=== PATIENT | male | born 1960 | race African-American/Black ===

== ENCOUNTER 2017-07-27 16:36 | Inpatient (IN) | payer MEDICARE, MEDICAID ==
[~2017-07-27] VITALS: Ht 172.7 cm; Wt 110.2 kg
[~2017-07-27 16:36] MED LIST: EFAV600T PO; EMTR1TAB6 PO; HYDR-548 PO; LANS15CA5 PO; RISP0.5T2 PO; TRAZ-144 PO; ZOLP10TA2 PO; [UNRECOGNIZED DRUG - OTHER] PO
--- NOTE | 2017-07-27 16:45 | NUR ---
PT TO ED FOR PSYCHE EVALUATION- "IM SUICIDAL, DEPRESSED, I WILL TAKE PILLS", NAD NOTED, VSS, RESP EVEN AND UNLABORED. WAITING FOR MD YUSUF.
[2017-07-27 17:14] LABS: BASOPHILS # (AUTO) 0.1 /CMM (0.0-0.2); BASOPHILS % (AUTO) 0.9 % (0.0-2.0); EOSINOPHILS # (AUTO) 0.1 /CMM (0.0-0.7); EOSINOPHILS % (AUTO) 1.7 % (0.0-6.0); HEMATOCRIT 48 % (39-51); HEMOGLOBIN 15.9 g/dL (13.5-17.5); LYMPHOCYTES % (AUTO) 23.4 % (20.0-44.0); MEAN CORPUSCULAR HEMOGLOBIN 30 PG (26.0-33.0); MEAN CORPUSCULAR HGB CONC 33 g/dl (31.0-36.0); MEAN CORPUSCULAR VOLUME 92 fL (80-96); MONOCYTES # (AUTO) 0.5 /CMM (0.1-1.30); MONOCYTES % (AUTO) 5.8 % (2.0-12.0); NEUTROPHILS # (AUTO) 5.8 /CMM (1.8-8.9); NEUTROPHILS % (AUTO) 68.2 % (43.0-81.0); PLATELET COUNT (AUTO) 291 /CMM (150-450); RDW COEFFICIENT OF VARIATION 12.9 (11.5-15.0); RED BLOOD CELL COUNT(AUTO) 5.24 MIL/uL (4.5-6.0); WHITE BLOOD COUNT (AUTO) 8.6 K/uL (4.3-11.0)
[2017-07-27 17:31] LABS: ALANINE AMINOTRANSFERASE 24 U/L (12-78); ALBUMIN 4.7 g/dL (3.4-5.0); ALKALINE PHOSPHATASE 141 U/L (46-116); ASPARTATE AMINOTRANSFERASE 8 U/L (15-37); BILIRUBIN,DIRECT 0.1 mg/dL (0.0-0.2); BILIRUBIN,TOTAL 0.3 mg/dL (0.2-1.0); CALCIUM, SERUM 9.4 mg/dL (8.5-10.1); CARBON DIOXIDE 26 mmol/L (21-32); CHLORIDE 107 mmol/L (98-107); CREATININE 1.2 mg/dL (0.6-1.3); GLUCOSE 142 mg/dL (74-106); POTASSIUM 4.1 mmol/L (3.5-5.1); SODIUM SERUM 143 mmol/L (136-145); TOTAL PROTEIN, SERUM 8.4 g/dL (6.4-8.2); UREA NITROGEN, BLOOD 14 mg/dL (7-18)
[2017-07-27 17:32] LABS: ACETAMINOPHEN < 2 ug/ml (10-30); ALCOHOL, BLOOD < 3 mg/dL (0-0); SALICYLATE < 2.8 mg/dL (2.8-20.0)
--- NOTE | 2017-07-27 18:03 | NUR ---
URINE SENT TO LAB
[2017-07-27 18:12] LABS: APPEARANCE,URINE Clear (CLEAR); BILIRUBIN,URINE Negative (NEGATIVE); BLOOD, URINE Negative Ery/uL (NEGATIVE); COLOR,URINE Yellow (YELLOW); KETONES,URINE Trace (NEGATIVE); LEUKOCYTE ESTERASE ,URINE Negative (NEGATIVE); NITRITE, URINE Negative (NEGATIVE); PROTEIN,URINE Negative (NEGATIVE); UGLUCOSE Negative (NEGATIVE); UROBILINOGEN,URINE 0.2 EU/dL (0.2)
[2017-07-27 19:02] LABS: BACTERIA,URINE Rare /HPF (None Seen); RBC,URINE NONE SEEN /HPF (0-2); SQUAMOUS EPITHELIAL CELL,UR Rare /HPF (None Seen); WBC,URINE 0-2 /HPF (0-3)
--- NOTE | 2017-07-27 19:50 | NUR ---
CALLED [facility] FOR PSYCH EVAL, ETA 1 HOUR
--- NOTE | 2017-07-27 20:54 | NUR ---
GPS 216-A
--- NOTE | 2017-07-27 21:09 | NUR ---
JEFFY ELIZONDO TOOK REPORT
[2017-07-27] MEDS ORDERED: TEMAZEPAM 7.5 MG CAPSULE PO PRN (22:00)
[2017-07-27] MEDS ORDERED: LORAZEPAM 0.5 MG TABLET PO PRN (22:00)
[2017-07-27] MEDS ORDERED: MAGNESIUM HYDROXIDE 30 ML UDC PO PRN (22:00)
[2017-07-27] MEDS ORDERED: MAG HYDROX/AL HYDROX/SIMETH 30 ML UDC PO PRN (22:00)
[2017-07-27] MEDS ORDERED: ENOXAPARIN SODIUM 40 MG/0.4 ML DISP.SYRIN SQ SCH (22:30)
[2017-07-27] MEDS ORDERED: ZOLPIDEM TARTRATE 10 MG TABLET PO PRN (22:30)
[2017-07-27 22:37] VITALS: BP 109/66
[2017-07-27] MEDS ORDERED: ENOXAPARIN SODIUM 40 MG/0.4 ML DISP.SYRIN SQ ONE (22:39)
[2017-07-27] MEDS ORDERED: TEMAZEPAM 7.5 MG CAPSULE ONE (22:41)
--- NOTE | 2017-07-27 23:03 | NUR ---
GPS/RN NOTE: C/O INSOMNIA, TEMAZEPAM 7.5 MG CAP PO GIVEN.
[2017-07-28 06:53] LABS: CREATININE 1.1 mg/dL (0.6-1.3)
[2017-07-28 08:00] VITALS: BP 105/60
[2017-07-28] MEDS: PANTOPRAZOLE 40 MG TABLET.DR PO SCH (08:51)
[2017-07-28] MEDS: EFAVIRENZ 600 MG TABLET PO SCH (08:51)
[2017-07-28] MEDS: EMTRICITABINE/TENOFOVIR 1 TAB PO SCH (08:51)
--- NOTE | 2017-07-28 14:47 | NUR ---
Initial discharge plan: Patient resides with roommates at a sober living facility ([address] [place] [id number], telephone number unknown). He would like to go back to the sober living house. Per patient, he does not have a phone number or contact that SW can speak to. SW will follow up regarding the most appropriate discharge plan. SW to help form a safe and proper discharge.
[2017-07-28 16:00] VITALS: BP 123/80
[2017-07-28 20:08] VITALS: BP 142/92
[2017-07-28] MEDS: ACETAMINOPHEN 325 MG TABLET PO PRN ×2 (20:26→21:21)
[2017-07-28] MEDS: QUETIAPINE FUMARATE 100 MG TABLET PO SCH (21:21)
[2017-07-28] MEDS: MIRTAZAPINE 15 MG TABLET PO SCH (21:21)
[2017-07-28] MEDS ORDERED: TRAZODONE 50 MG TABLET PO SCH (22:00)
[2017-07-29 08:26] VITALS: BP 136/75
[2017-07-29] MEDS: FLUOXETINE HCL 20 MG CAPSULE PO SCH (09:26)
[2017-07-29] MEDS: PANTOPRAZOLE 40 MG TABLET.DR PO SCH (09:26)
[2017-07-29] MEDS: EMTRICITABINE/TENOFOVIR 1 TAB PO SCH (09:27)
[2017-07-29] MEDS: EFAVIRENZ 600 MG TABLET PO SCH (09:27)
[2017-07-29 17:11] VITALS: BP 110/77
[2017-07-29 20:00] VITALS: BP 124/81
[2017-07-29] MEDS: QUETIAPINE FUMARATE 100 MG TABLET PO SCH (21:29)
[2017-07-29] MEDS: MIRTAZAPINE 15 MG TABLET PO SCH (21:30)
[2017-07-30 08:00] VITALS: BP 109/83
[2017-07-30] MEDS: EMTRICITABINE/TENOFOVIR 1 TAB PO SCH (08:56)
[2017-07-30] MEDS: FLUOXETINE HCL 20 MG CAPSULE PO SCH (08:57)
[2017-07-30] MEDS: EFAVIRENZ 600 MG TABLET PO SCH (08:57)
[2017-07-30] MEDS: PANTOPRAZOLE 40 MG TABLET.DR PO SCH (08:57)
--- NOTE | 2017-07-30 15:44 | NUR ---
skidway worker spoke to patient regarding discharge plan. Patient stated that he wants to return to the sober living facility ([address] [place] [address], telephone number unknown) Patient only has the address and is unable to provide a contact number. skidway worker will follow-up.
[2017-07-30 16:00] VITALS: BP 115/68
[2017-07-30 20:00] VITALS: BP 117/73
[2017-07-30] MEDS: MIRTAZAPINE 15 MG TABLET PO SCH (21:42)
[2017-07-30] MEDS: QUETIAPINE FUMARATE 100 MG TABLET PO SCH (21:42)
[2017-07-31 08:00] VITALS: BP 119/71
[2017-07-31] MEDS: PANTOPRAZOLE 40 MG TABLET.DR PO SCH (08:04)
[2017-07-31] MEDS: EMTRICITABINE/TENOFOVIR 1 TAB PO SCH (09:04)
[2017-07-31] MEDS: FLUOXETINE HCL 20 MG CAPSULE PO SCH (09:04)
[2017-07-31] MEDS: EFAVIRENZ 600 MG TABLET PO SCH (09:04)
[2017-07-31 16:00] VITALS: BP 109/81
[2017-07-31 20:00] VITALS: BP 115/80
[2017-07-31] MEDS: MIRTAZAPINE 15 MG TABLET PO SCH (21:32)
[2017-07-31] MEDS: QUETIAPINE FUMARATE 100 MG TABLET PO SCH (21:32)
--- NOTE | 2017-08-01 00:53 | NUR ---
Pt has been with depressed mood but compliant & pleasant on approach.
[2017-08-01] MEDS: PANTOPRAZOLE 40 MG TABLET.DR PO SCH (07:58)
[2017-08-01] MEDS: FLUOXETINE HCL 20 MG CAPSULE PO SCH (07:58)
[2017-08-01 07:59] VITALS: BP 108/74
[2017-08-01] MEDS: EFAVIRENZ 600 MG TABLET PO SCH (08:32)
[2017-08-01] MEDS: EMTRICITABINE/TENOFOVIR 1 TAB PO SCH (08:32)
--- NOTE | 2017-08-01 13:46 | NUR ---
LRR-UE-[id number]: NOTIFIED DR. REGALADO ABOUT DIETARY RECOMMENDATIONS FOR FOLIC ACID, THIAMINE, MULTIVITAMINS DUE TO ALCOHOL ABUSE. DR. REGALADO DIDN'T ORDER NEW MEDICATIONS AT THIS TIME.
[2017-08-01 16:00] VITALS: BP 126/82
[2017-08-01 20:13] VITALS: BP 124/86
[2017-08-01] MEDS: MIRTAZAPINE 15 MG TABLET PO SCH (21:07)
[2017-08-01] MEDS: QUETIAPINE FUMARATE 100 MG TABLET PO SCH (21:08)
[2017-08-01] MEDS: ATORVASTATIN 10 MG TABLET PO SCH (21:08)
[2017-08-02 08:17] VITALS: BP 119/73
[2017-08-02] MEDS: FLUOXETINE HCL 20 MG CAPSULE PO SCH (09:28)
[2017-08-02] MEDS: PANTOPRAZOLE 40 MG TABLET.DR PO SCH (09:28)
[2017-08-02] MEDS: EFAVIRENZ 600 MG TABLET PO SCH (09:29)
[2017-08-02] MEDS: EMTRICITABINE/TENOFOVIR 1 TAB PO SCH (09:29)
[2017-08-02 16:05] VITALS: BP 140/88
[2017-08-02 20:00] VITALS: BP 135/71
[2017-08-02] MEDS: ATORVASTATIN 10 MG TABLET PO SCH (21:42)
[2017-08-02] MEDS: QUETIAPINE FUMARATE 100 MG TABLET PO SCH (21:43)
[2017-08-02] MEDS: MIRTAZAPINE 15 MG TABLET PO SCH (21:43)
[2017-08-03 08:00] VITALS: BP 150/77
[2017-08-03] MEDS: PANTOPRAZOLE 40 MG TABLET.DR PO SCH (09:04)
[2017-08-03] MEDS: FLUOXETINE HCL 20 MG CAPSULE PO SCH (09:04)
[2017-08-03] MEDS: EFAVIRENZ 600 MG TABLET PO SCH (09:05)
[2017-08-03] MEDS: EMTRICITABINE/TENOFOVIR 1 TAB PO SCH (09:05)
[2017-08-03 15:43] VITALS: BP 141/70
[2017-08-03 19:59] VITALS: BP 108/72
[2017-08-03] MEDS: MIRTAZAPINE 15 MG TABLET PO SCH (21:34)
[2017-08-03] MEDS: ATORVASTATIN 10 MG TABLET PO SCH (21:34)
[2017-08-03] MEDS: QUETIAPINE FUMARATE 100 MG TABLET PO SCH (21:35)
[2017-08-04 08:38] VITALS: BP 107/73
[2017-08-04] MEDS: FLUOXETINE HCL 20 MG CAPSULE PO SCH (09:16)
[2017-08-04] MEDS: PANTOPRAZOLE 40 MG TABLET.DR PO SCH (09:16)
[2017-08-04] MEDS: EMTRICITABINE/TENOFOVIR 1 TAB PO SCH (09:16)
[2017-08-04] MEDS: EFAVIRENZ 600 MG TABLET PO SCH (09:17)
[2017-08-04 16:08] VITALS: BP 120/78
--- NOTE | 2017-08-04 19:30 | NUR ---
GPS RN NOTE, RECEIVED PATIENT AWAKE AND IN BED, PATIENT HAS A COMPLAINT OF CHRONIC LOWER BACK PAIN AT 4 OU10 ON THE PAIN. PATIENT IS TAKING ORAL PAIN MEDICATION FOR THIS PAIN. PATIENT IS DISPLAYING NO S/S OF APPARENT DISTRESS AT THIS TIME. PATIENT BREATHING IS UNLABORED WITH EQUAL RISE AND FALL OF THE CHEST. PATIENT IS ALERT AND ORIENTED X 3 ON ROOM AIR WITH A SPO2 OF 97%. PATIENT IS ANXIOUS AT TIMES , COMPLIANT WITH MEDICATION, COOPERATIVE, PLEASANT, AND NEEDS REORIENTATION. PATIENT DENIES SUICIDE IDEATIONS AND HOMICIDAL IDEATIONS AT THIS TIME. PATIENT EDUCATED ON THE USE OF THE CALL RAMAN. PATIENT BED SIDE RAILS UP X2 FOR SAFETY, BED IS LOCKED AND LOW, AND I WILL CONTINUE TO MONITOR AND MAINTAIN SAFETY Q15MIN WITH THE HELP OF STAFF.
[2017-08-04] MEDS: NAPROXEN 500 MG TABLET PO SCH (19:33)
--- NOTE | 2017-08-04 19:33 | NUR ---
GPS RN NOTE, PATIENT HAS A COMPLAINT OF CHRONIC LOWER BACK PAIN AT 5 OUT 10 ON THE PAIN SCALE AND IS REQUESTING NAPROXEN. [facility] AND INFORMED DR KAVITA EISENBERG OF MY FINDINGS. DR WALLS ORDERED TO GIVE NAPROXEN 500MG PO BID AND TO GIVE ONE TAB OF NAPROXEN ONCE NOW. ALL ORDERS NOTED AND CARRIED OUT. PATIENT VITAL SIGNS ARE STABLE. GAVE NAPROXEN 500MG ONE TAB PO ONCE. WILL REASSESS PAIN AND I WILL CONTINUE TO MONITOR THIS PATIENT.
[2017-08-04 19:37] VITALS: BP 139/79
[2017-08-04] MEDS: ATORVASTATIN 10 MG TABLET PO SCH (21:20)
[2017-08-04] MEDS: QUETIAPINE FUMARATE 100 MG TABLET PO SCH (21:21)
[2017-08-04] MEDS: MIRTAZAPINE 15 MG TABLET PO SCH (21:21)
[2017-08-05 08:00] VITALS: BP 110/77
[2017-08-05] MEDS: EMTRICITABINE/TENOFOVIR 1 TAB PO SCH (08:19)
[2017-08-05] MEDS: EFAVIRENZ 600 MG TABLET PO SCH (08:19)
[2017-08-05] MEDS: NAPROXEN 500 MG TABLET PO SCH ×2 (08:19→16:30)
[2017-08-05] MEDS: FLUOXETINE HCL 20 MG CAPSULE PO SCH (08:19)
[2017-08-05] MEDS: PANTOPRAZOLE 40 MG TABLET.DR PO SCH (08:19)
[2017-08-05 16:00] VITALS: BP 111/76
[2017-08-05 20:00] VITALS: BP 113/84
[2017-08-05] MEDS: MIRTAZAPINE 15 MG TABLET PO SCH (21:42)
[2017-08-05] MEDS: ATORVASTATIN 10 MG TABLET PO SCH (21:42)
[2017-08-05] MEDS ORDERED: QUETIAPINE FUMARATE 100 MG TABLET ONE (22:13)
[2017-08-05] MEDS: QUETIAPINE FUMARATE 100 MG TABLET PO SCH (22:24)
--- NOTE | 2017-08-06 07:17 | NUR ---
RN NOTE PT IS IN BED, SLEEPING COMFORTABLY. PT ON RA, RESPIRATIONS ARE EVEN AND UNLABORED. SAFETY MEASURES ARE IN PLACE. WILL CONTINUE TO MONITOR.
[2017-08-06 08:00] VITALS: BP 117/77
[2017-08-06] MEDS: FLUOXETINE HCL 20 MG CAPSULE PO SCH (09:17)
[2017-08-06] MEDS: EMTRICITABINE/TENOFOVIR 1 TAB PO SCH (09:17)
[2017-08-06] MEDS: EFAVIRENZ 600 MG TABLET PO SCH (09:17)
[2017-08-06] MEDS: NAPROXEN 500 MG TABLET PO SCH (09:17)
[2017-08-06] MEDS: PANTOPRAZOLE 40 MG TABLET.DR PO SCH (09:17)
--- NOTE | 2017-08-06 09:54 | NUR ---
DR. LEMUS GAVE AN ORDER TO D/C HOLD AND D/C TO SOBER LIVING FACILITY. PT. WITHOUT DISTRESS, DENIES SUICIDAL AND HOMICIDAL AND TO FOLLOW UP WITH PSYCH AND MEDICAL DOCTORS.
--- NOTE | 2017-08-06 11:33 | NUR ---
Discharge Note: Patient will be discharged to Sober Living Facility [address] [address]. Via taxi. Patient does not have any contacts to be notified. Patient is agreeable with the discharge plan. Patient's mood and affect are appropriate. Patient denies suicidal and homicidal ideations. Per Patient, he has a follow-up appointment with his psychiatrist Dr. King ([phone]) on 08/16/17 at 2:00PM in which he will discuss his substance abuse. Facilitated info to IDT team who are in agreement with discharge arrangement. The multidisciplinary exitcare form was done, printed, signed, and given to the patient. Addendum: 08/06/17 at 1309 by CHANDANA SILVER Patient stated that he wanted to go to the [facility] in [place] before going to the sober living [facility] and stated that he had to "run some errands". Patient did not want a taxi voucher and kept insisting that he wanted to go to the [facility]. floor worker provided him with homeless resources such as shelters and food riddle. Patient's mood and affect were appropriate upon discharge.
--- NOTE | 2017-08-06 12:42 | NUR ---
DR. REGALADO MADE AWARE BY THE PRIMARY NURSE FOR THE DISCHARGE AND SAID OK FOR DISCHARGE. PER PT. HE DOESN'T NEED A MEDICAL PRESCRIPTIONS, HE STILL HAVE MEDS AT HOME. DR. REGALADO SAID TO CONTINUE SAME MEDS.
--- NOTE | 2017-08-06 12:53 | NUR ---
RN NOTES PT WAS DISCHARGED TO A SOBER LIVING FACILITY IN STABLE CONDITION. DISCHARGE PAPERS WERE SIGNED AND BELONGINGS WERE RETURNED TO THE PATIENT. THE PT WAS GIVEN A TAXI VOUCHER TO GET TO THE FACILITY. PT WAS ALSO GIVEN HIS NEW PRESCRIPTION TO HAVE FILLED.
--- NOTE | 2017-08-06 13:01 | NUR ---
RN NOTES PT REFUSED TO TAKE TAXI, STATES "I HAVE PLACES I WANT TO GO BEFORE". AERIAL PHOTOGRAPH INTERPRETER MARIETTA SAID IT WAS OKAY THAT HE WENT ON HIS OWN.
== END 2017-08-06 13:05 | disposition home or self-care (01) | DRG 885 ==
LOC: ER 16:39 → GPS 21:09
PROVIDERS: ADMIT Nurse Practitioner Acute Care; ATTEND Psychiatry & Neurology Psychiatry
DX: F33.2 Major depressive disorder, recurrent severe without psychotic features (principal); R45.851 Suicidal ideations; F20.9 Schizophrenia, unspecified; F10.20 Alcohol dependence, uncomplicated; F12.10 Cannabis abuse, uncomplicated; Y90.0 Blood alcohol level of less than 20 mg/100 ml; K21.9 Gastro-esophageal reflux disease without esophagitis; I10 Essential (primary) hypertension; G89.29 Other chronic pain; K29.70 Gastritis, unspecified, without bleeding; M19.90 Unspecified osteoarthritis, unspecified site; R73.9 Hyperglycemia, unspecified; Z97.0 Presence of artificial eye
CPT/HCPCS: 36415; 80048-TC; 80061-TC; 80076-TC; 80305; 81000-TC; 82565-TC; 85025-TC; 87081-TC; A4606; G0480; J1650; Z7610

== ENCOUNTER 2017-11-03 11:58 | Inpatient (IN) | payer MEDICARE, MEDICAID ==
[~2017-11-03] VITALS: Ht 172.7 cm; Wt 104.3 kg
[~2017-11-03 11:58] MED LIST changes: +LANS15CA13 PO; -LANS15CA5 PO; -RISP0.5T2 PO; +RISP0.5T5 PO
--- NOTE | 2017-11-03 12:10 | NUR ---
SI DENIES HI. STATES PLAN TO OVERDOSE ON PILLS ADMITS COCAINE USE YESTERDAY, NAD NOTED, VSS, RESP EVEN AND UNLABORED, WAITING FOR MD YUSUF.
[2017-11-03 12:45] LABS: BASOPHILS # (AUTO) 0.2 /CMM (0.0-0.2); BASOPHILS % (AUTO) 2.3 % (0.0-2.0); EOSINOPHILS # (AUTO) 0.1 /CMM (0.0-0.7); EOSINOPHILS % (AUTO) 0.6 % (0.0-6.0); HEMATOCRIT 46 % (39-51); HEMOGLOBIN 15.9 g/dL (13.5-17.5); LYMPHOCYTES # (AUTO) 1.4 /CMM (0.8-4.8); LYMPHOCYTES % (AUTO) 13.9 % (20.0-44.0); MEAN CORPUSCULAR HEMOGLOBIN 32 PG (26.0-33.0); MEAN CORPUSCULAR HGB CONC 35 g/dl (31.0-36.0); MEAN CORPUSCULAR VOLUME 91 fL (80-96); MONOCYTES # (AUTO) 0.7 /CMM (0.1-1.30); MONOCYTES % (AUTO) 7.2 % (2.0-12.0); NEUTROPHILS # (AUTO) 7.4 /CMM (1.8-8.9); PLATELET COUNT (AUTO) 282 /CMM (150-450); RDW COEFFICIENT OF VARIATION 12.5 (11.5-15.0); RED BLOOD CELL COUNT(AUTO) 5.04 MIL/uL (4.5-6.0); WHITE BLOOD COUNT (AUTO) 9.8 K/uL (4.3-11.0)
[2017-11-03 12:53] LABS: CALCIUM, SERUM 9.8 mg/dL (8.5-10.1); CARBON DIOXIDE 30 mmol/L (21-32); CHLORIDE 103 mmol/L (98-107); CREATININE 1.1 mg/dL (0.6-1.3); GLUCOSE 116 mg/dL (74-106); POTASSIUM 3.9 mmol/L (3.5-5.1); SODIUM SERUM 139 mmol/L (136-145); UREA NITROGEN, BLOOD 11 mg/dL (7-18)
[2017-11-03 13:06] LABS: APPEARANCE,URINE Clear (CLEAR); BILIRUBIN,URINE Negative (NEGATIVE); BLOOD, URINE Negative Ery/uL (NEGATIVE); COLOR,URINE Yellow (YELLOW); KETONES,URINE Negative (NEGATIVE); LEUKOCYTE ESTERASE ,URINE Negative (NEGATIVE); NITRITE, URINE Negative (NEGATIVE); PH,URINE 5.5 (5.0-8.0); PROTEIN,URINE 30 mg/dl (NEGATIVE); UGLUCOSE Negative (NEGATIVE); UROBILINOGEN,URINE 0.2 EU/dL (0.2)
[2017-11-03 13:06] LABS: ALANINE AMINOTRANSFERASE 32 U/L (12-78); ALBUMIN 4.3 g/dL (3.4-5.0); ALCOHOL, BLOOD < 3 mg/dL (0-0); ALKALINE PHOSPHATASE 164 U/L (46-116); ASPARTATE AMINOTRANSFERASE 15 U/L (15-37); BILIRUBIN,DIRECT 0.1 mg/dL (0.0-0.2); BILIRUBIN,TOTAL 0.5 mg/dL (0.2-1.0); SALICYLATE 0.7 mg/dL (2.8-20.0); TOTAL PROTEIN, SERUM 8.6 g/dL (6.4-8.2)
[2017-11-03 13:11] LABS: ACETAMINOPHEN < 2 ug/ml (10-30)
--- NOTE | 2017-11-03 13:22 | NUR ---
MEAL TRAY GIVEN TO PT.
--- NOTE | 2017-11-03 13:27 | NUR ---
CALLED [facility] FOR PSYCH EVAL, ETA WITHIN THE HOUR
[2017-11-03 13:28] LABS: BACTERIA,URINE Rare /HPF (None Seen); MUCUS,URINE Few /LPF (None Seen); RBC,URINE 0-3 /HPF (0-2); SQUAMOUS EPITHELIAL CELL,UR Few /HPF (None Seen)
[2017-11-03] MEDS ORDERED: QUET300T2 PO (14:00)
--- NOTE | 2017-11-03 15:32 | NUR ---
REPORT GIVEN TO JUDY
[2017-11-03 16:00] VITALS: BP 123/86
[2017-11-03] MEDS ORDERED: MAGNESIUM HYDROXIDE 30 ML UDC PO PRN (16:30)
[2017-11-03] MEDS ORDERED: MAG HYDROX/AL HYDROX/SIMETH 30 ML UDC PO PRN (16:30)
[2017-11-03] MEDS ORDERED: TEMAZEPAM 7.5 MG CAPSULE PO PRN (16:30)
[2017-11-03] MEDS ORDERED: LORAZEPAM 0.5 MG TABLET PO PRN (16:30)
[2017-11-03] MEDS ORDERED: ACETAMINOPHEN 325 MG TABLET PO PRN (16:30)
--- NOTE | 2017-11-03 17:26 | NUR ---
1610: Pt placed on a 5150 involuntary hold in ED for DTS to overdose. Pt states feeling depressed for the past week. pt has a history of suicide, suicidal ideation. Medical history GERD, HTN, HIV +, chronic back pain, schizophrenia, depression, anxiety, substance abuse, left eye surgery, left knee surgery. Pt is alert oriented x 4 and ambulatory. He is calm and cooperative. Mood depressed. He is quiet, isolative, withdrawn. limited interaction during admission process. vital sign stable. no acute distress noted. Dr Mallory and Dr. Dodd aware of patient admission. Standing order for psych done. Medication recon for medical meds also done. MRSA swab completed in ED. Skin assessment done. contrabanded patient for safety done and belongings placed in locker. pt oriented to unit. pt going to room 215B.
[2017-11-03] MEDS ORDERED: HYDROCODONE/APAP 10/325MG 1 EA TABLET PO PRN (17:30)
--- NOTE | 2017-11-03 19:00 | NUR ---
endorsed care to Ernesto to complete nursing care plan. thx.
[2017-11-03 20:36] VITALS: BP 130/83
[2017-11-03] MEDS ORDERED: [UNRECOGNIZED DRUG - OTHER] PO SCH (22:00)
[2017-11-04 08:00] VITALS: BP 117/74
[2017-11-04] MEDS: PANTOPRAZOLE 40 MG TABLET.DR PO SCH (08:16)
[2017-11-04] MEDS: EFAVIRENZ 600 MG TABLET PO SCH (08:17)
[2017-11-04] MEDS: EMTRICITABINE/TENOFOVIR 1 TAB PO SCH (08:17)
[2017-11-04] MEDS ORDERED: LANSOPRAZOLE 15 MG PO SCH (09:00)
[2017-11-04 10:02] LABS: CHOLESTEROL 197 mg/dL (<200); HDL CHOLESTEROL 48 mg/dL (40-60); LDL 124 mg/dL (0-99); TRIGLYCERIDES 147 mg/dL (30-150)
[2017-11-04 10:05] LABS: ALBUMIN 3.8 g/dL (3.4-5.0); BILIRUBIN,TOTAL 0.3 mg/dL (0.2-1.0); CALCIUM, SERUM 9.4 mg/dL (8.5-10.1); CREATININE 1.1 mg/dL (0.6-1.3); POTASSIUM 3.7 mmol/L (3.5-5.1); TOTAL PROTEIN, SERUM 7.6 g/dL (6.4-8.2)
[2017-11-04 16:00] VITALS: BP 110/66
--- NOTE | 2017-11-04 16:01 | NUR ---
GROUP NOTE: S: Patient states, "I don't have any questions right now." O: Patient appears withdrawn and reclusive. Patient seems dysphoric. Patient's motor activity is calm. A: Patient seems to be slowly adjusting to his hospitalization [patient is a new admit]. Patient seems to have depression. P: Patient will stabilize in the hospital by following treatment plan, which includes medication and psychotherapy. SW to plan for safe discharge once patient is stable.
--- NOTE | 2017-11-04 16:36 | NUR ---
Initial Discharge Plan: Pt resides at [address] [place] [address], a Room & Board. Pt does not have a blocker and cutter contact lens and or telephone #. Pt did not want to let anyone know he was in the hospital. Upon discharge, pt would like to return to the [facility] and Care. Pt asked SW for bus tokens when he is discharged in order to get back to his residence.
[2017-11-04 20:00] VITALS: BP 141/89
[2017-11-04] MEDS: QUETIAPINE FUMARATE 100 MG TABLET PO SCH (21:22)
[2017-11-04] MEDS: MIRTAZAPINE 15 MG TABLET PO SCH (21:22)
[2017-11-05] MEDS: PANTOPRAZOLE 40 MG TABLET.DR PO SCH (07:44)
[2017-11-05 08:00] VITALS: BP 111/74
[2017-11-05] MEDS: EMTRICITABINE/TENOFOVIR 1 TAB PO SCH (08:42)
[2017-11-05] MEDS: EFAVIRENZ 600 MG TABLET PO SCH (08:42)
[2017-11-05 16:00] VITALS: BP 107/67
[2017-11-05 20:00] VITALS: BP 119/76
[2017-11-05] MEDS: MIRTAZAPINE 15 MG TABLET PO SCH (21:16)
[2017-11-05] MEDS: QUETIAPINE FUMARATE 100 MG TABLET PO SCH (21:16)
[2017-11-06] MEDS: PANTOPRAZOLE 40 MG TABLET.DR PO SCH (07:25)
[2017-11-06 08:04] VITALS: BP 104/77
[2017-11-06] MEDS: EMTRICITABINE/TENOFOVIR 1 TAB PO SCH (08:40)
[2017-11-06] MEDS: EFAVIRENZ 600 MG TABLET PO SCH (08:40)
[2017-11-06 15:46] VITALS: BP 117/79
[2017-11-06 20:00] VITALS: BP 137/82
[2017-11-06] MEDS: MIRTAZAPINE 15 MG TABLET PO SCH (21:27)
[2017-11-06] MEDS: QUETIAPINE FUMARATE 100 MG TABLET PO SCH (21:27)
[2017-11-07] MEDS: PANTOPRAZOLE 40 MG TABLET.DR PO SCH (07:52)
[2017-11-07 08:51] VITALS: BP 119/81
[2017-11-07] MEDS: EMTRICITABINE/TENOFOVIR 1 TAB PO SCH (08:52)
[2017-11-07] MEDS: EFAVIRENZ 600 MG TABLET PO SCH (08:52)
[2017-11-07 16:00] VITALS: BP 135/85
[2017-11-07 19:38] VITALS: BP 141/91
[2017-11-07] MEDS: MIRTAZAPINE 15 MG TABLET PO SCH (21:41)
[2017-11-07] MEDS: QUETIAPINE FUMARATE 100 MG TABLET PO SCH (21:41)
[2017-11-08] MEDS: PANTOPRAZOLE 40 MG TABLET.DR PO SCH (07:30)
[2017-11-08 08:00] VITALS: BP 111/79
[2017-11-08] MEDS: EMTRICITABINE/TENOFOVIR 1 TAB PO SCH (09:33)
[2017-11-08] MEDS: EFAVIRENZ 600 MG TABLET PO SCH (09:33)
--- NOTE | 2017-11-08 10:55 | NUR ---
Discharge Planning: SW contacted [facility] for the purpose of ensuring proper placement for pt once he is ready to discharge. Address listed on Face sheet ([address] [place] [address]) comes back to the above board & care. SW was unable to speak to anyone however a message was left asking for a callback. ADRIANNE will follow up.
--- NOTE | 2017-11-08 11:02 | NUR ---
Discharge Planning: ADRIANNE was contacted by Marc, Newspaper Manager of [facility] & Care to confirm pts placement at the room and board once he is ready to discharge. Per. Marc, pt can return once he is ready. ADRIANNE will continue to work with pt and other professionals to ensure pt is safely and properly placed.
[2017-11-08 16:00] VITALS: BP 114/71
[2017-11-08 19:57] VITALS: BP 122/89
[2017-11-08] MEDS: MIRTAZAPINE 15 MG TABLET PO SCH (21:12)
[2017-11-08] MEDS: QUETIAPINE FUMARATE 100 MG TABLET PO SCH (21:12)
[2017-11-09 08:00] VITALS: BP 105/78
[2017-11-09] MEDS: PANTOPRAZOLE 40 MG TABLET.DR PO SCH (08:25)
[2017-11-09] MEDS: EMTRICITABINE/TENOFOVIR 1 TAB PO SCH (08:25)
[2017-11-09] MEDS: EFAVIRENZ 600 MG TABLET PO SCH (08:25)
--- NOTE | 2017-11-09 12:13 | NUR ---
Discharge Planning: SW spoke to pt for discharge planning purposes. SW informed pt of his tentative discharge date (i.e. 11/11/17) and inquired about reaching out to Marc the vending machine operator of the Board and Care to arrange for transportation; which pt denied. Pt adamantly refused and stated, "Just give me the bus tokens and I can get there myself." Pt reassured, SW that he uses public transportation frequently and can manage on his own. ADRIANNE will follow up with pts psychiatrist, Dr. Mallory regarding transportation services upon discharge.
[2017-11-09 16:00] VITALS: BP 114/76
[2017-11-09] MEDS: LIDOCAINE 5% (PATCH) 1 EA PATCH TP SCH (17:24)
--- NOTE | 2017-11-09 19:30 | NUR ---
GPS RN NOTE, RECEIVED PATIENT AWAKE AND IN BED, NO S/S OR COMPLAINTS OF PAIN AT THIS TIME. PATIENT IS DISPLAYING NO S/S OF APPARENT DISTRESS AT THIS TIME. PATIENT BREATHING IS UNLABORED WITH EQUAL RISE AND FALL OF THE CHEST. PATIENT IS ALERT AND ORIENTED X 4 ON ROOM AIR WITH A SPO2 96 %. PATIENT IS MED COMPLIANT, DISORGANIZED, ANXIOUS AT TIMES, COOPERATIVE, AND NEEDS REORIENTATION. PATIENT DENIES SUICIDE IDEATIONS AND HOMICIDAL IDEATIONS AT THIS TIME. PATIENT ASSISTED WITH TURNING AND REPOSITIONING Q2HR AND PRN FOR COMFORT AND CIRCULATION. PATIENT HAS NO NEEDS AT THIS TIME. PATIENT EDUCATED ON THE USE OF THE CALL RAMAN. PATIENT BED SIDE RAILS ARE UP X 2 FOR SAFETY, BED IS LOCKED AND LOW WILL CONTINUE TO MONITOR Q 15 MIN AND MAINTAIN SAFETY WITH THE HELP OF STAFF.
[2017-11-09 19:57] VITALS: BP 125/80
[2017-11-09] MEDS: MIRTAZAPINE 15 MG TABLET PO SCH (21:20)
[2017-11-09] MEDS: QUETIAPINE FUMARATE 100 MG TABLET PO SCH (21:20)
--- NOTE | 2017-11-10 00:15 | NUR ---
GPS RN NOTE, PATIENT HAS A COMPLAINT OF INDIGESTION AND IS REQUESTING MAALOX AT THIS TIME. PATIENT VITAL SIGNS ARE STABLE. GAVE MAALOX 30 ML 1 UNIT DOSE PO Q4HR PRN ORDERED. WILL REASSESS FOR EFFECTIVENESS AND I WILL CONTINUE TO MONITOR THIS PATIENT.
[2017-11-10 08:00] VITALS: BP 112/71
[2017-11-10] MEDS: PANTOPRAZOLE 40 MG TABLET.DR PO SCH (08:38)
[2017-11-10] MEDS: EFAVIRENZ 600 MG TABLET PO SCH (09:03)
[2017-11-10] MEDS: EMTRICITABINE/TENOFOVIR 1 TAB PO SCH (09:03)
[2017-11-10 16:00] VITALS: BP 120/70
[2017-11-10] MEDS: LIDOCAINE 5% (PATCH) 1 EA PATCH TP SCH (17:46)
[2017-11-10 20:00] VITALS: BP 124/89
[2017-11-10 20:14] VITALS: BP 124/89
[2017-11-10] MEDS: QUETIAPINE FUMARATE 100 MG TABLET PO SCH (21:24)
[2017-11-10] MEDS: MIRTAZAPINE 15 MG TABLET PO SCH (21:24)
[2017-11-11 08:00] VITALS: BP 124/79
[2017-11-11] MEDS: PANTOPRAZOLE 40 MG TABLET.DR PO SCH (08:47)
[2017-11-11] MEDS: EMTRICITABINE/TENOFOVIR 1 TAB PO SCH (08:47)
[2017-11-11] MEDS: EFAVIRENZ 600 MG TABLET PO SCH (08:47)
[2017-11-11 15:45] VITALS: BP 109/79
[2017-11-11] MEDS: LIDOCAINE 5% (PATCH) 1 EA PATCH TP SCH (17:06)
[2017-11-11 20:00] VITALS: BP 127/93
[2017-11-11] MEDS: MIRTAZAPINE 15 MG TABLET PO SCH (21:35)
[2017-11-11] MEDS: QUETIAPINE FUMARATE 100 MG TABLET PO SCH (21:35)
[2017-11-12 08:00] VITALS: BP 103/68
[2017-11-12] MEDS: PANTOPRAZOLE 40 MG TABLET.DR PO SCH (08:08)
[2017-11-12] MEDS: EFAVIRENZ 600 MG TABLET PO SCH (08:13)
[2017-11-12] MEDS: EMTRICITABINE/TENOFOVIR 1 TAB PO SCH (08:13)
--- NOTE | 2017-11-12 09:10 | NUR ---
DR. LEMUS GAVE AN ORDER TO D/C HOLD AND D/C TODAY AND TO FOLLOW UP WITH PSYCH AND MEDICAL DOCTORS.
--- NOTE | 2017-11-12 11:08 | NUR ---
Discharge Note: Patient to discharge to [facility], located at [address] [place] [address] / [phone] via public transportation. secured four bus tokens for patient. Upon discharge, patient was alert and oriented x4. Patient is ambulatory. Patient denies suicidal and homicidal ideation. Patient denies visual and auditory hallucinations. Patient does not wish for family members to be notified. Patient will follow up with his stock clipper, Dr. Bryan [address] [facility] [id number] [place] [address] / [phone]. Patient will also be seen by psychiatrist Dr. King [address] [place], [place] [id number]/ [phone] on December 08 at 10:30am. ADRIANNE provided patient with a referral to [address] [address] and encouraged patient to present at 9am for intake screening on November 15. Additional resources include: [facility] [address] [place] [address] and [facility] [place] [address] [facility]
--- NOTE | 2017-11-12 15:31 | NUR ---
AMMONIUM SULFATE OPERATOR NOTE Patient a&o x4, stable condition, calm and cooperative, compliant with medication, discharged to [facility], located at [address] [place] [address] in [place] [phone] / [phone] via public transportation. Pt was given four bus tokens. All valuables returned to pt and pt signed all paperwork, exit care provided, prescription list given to pt, Patient is ambulatory. Skin clear on discharge. Patient denies suicidal and homicidal ideation, Patient denies visual and auditory hallucinations at the time of discharge, pt was accompanied to the lobby.
== END 2017-11-12 15:00 | disposition home or self-care (01) | DRG 885 ==
LOC: ER 12:02 → GPS 15:22
PROVIDERS: ADMIT Psychiatry & Neurology Psychiatry; ATTEND Psychiatry & Neurology Psychiatry
DX: F33.3 Major depressive disorder, recurrent, severe with psychotic symptoms (principal); G93.41 Metabolic encephalopathy; F20.9 Schizophrenia, unspecified; F29 Unspecified psychosis not due to a substance or known physiological condition; R45.851 Suicidal ideations; I10 Essential (primary) hypertension; G89.29 Other chronic pain; F41.9 Anxiety disorder, unspecified; F31.9 Bipolar disorder, unspecified; Z91.013 Allergy to seafood; Z91.018 Allergy to other foods; Z73.6 Limitation of activities due to disability; F14.10 Cocaine abuse, uncomplicated; E66.9 Obesity, unspecified; Z68.35 Body mass index [BMI] 35.0-35.9, adult; Z79.899 Other long term (current) drug therapy; Z91.14 Patient's other noncompliance with medication regimen; F12.10 Cannabis abuse, uncomplicated; K21.9 Gastro-esophageal reflux disease without esophagitis; F10.21 Alcohol dependence, in remission
CPT/HCPCS: 36415; 80048-TC; 80053-TC; 80061-TC; 80076-TC; 80305; 81000-TC; 85025-TC; 87081-TC; A4606; G0480; Z7610

== ENCOUNTER 2017-12-28 11:26 | Inpatient (IN) | payer MEDICARE, MEDICAID ==
[~2017-12-28] VITALS: Ht 172.7 cm; Wt 109.8 kg
[~2017-12-28 11:26] MED LIST changes: +QUET300T2 PO
--- NOTE | 2017-12-28 11:45 | NUR ---
PT STATES TO "FEELING DEPRESSED AND SUICIDAL WITH PLAN TO DO SELF WITH PILLS". PT DENIES HI. PT IS AAOX4. RESP EVEN AND UNLABORED. NO S/S OF ACUTE DISTRESS NOTED. SKIN WNL. AWAITING MD FOR EVAL
--- NOTE | 2017-12-28 12:00 | NUR ---
CALLED [facility], LEFT A VOICEMAIL.
--- NOTE | 2017-12-28 12:06 | NUR ---
[facility] CALLED BACK ETA 1HR.
[2017-12-28 12:11] LABS: BASOPHILS # (AUTO) 0.3 /CMM (0.0-0.2); BASOPHILS % (AUTO) 3.1 % (0.0-2.0); EOSINOPHILS % (AUTO) 0.5 % (0.0-6.0); HEMATOCRIT 50 % (39-51); HEMOGLOBIN 17.3 g/dL (13.5-17.5); LYMPHOCYTES # (AUTO) 1.7 /CMM (0.8-4.8); LYMPHOCYTES % (AUTO) 19.6 % (20.0-44.0); MEAN CORPUSCULAR HEMOGLOBIN 31 PG (26.0-33.0); MEAN CORPUSCULAR HGB CONC 35 g/dl (31.0-36.0); MEAN CORPUSCULAR VOLUME 90 fL (80-96); MONOCYTES # (AUTO) 0.7 /CMM (0.1-1.30); MONOCYTES % (AUTO) 8.5 % (2.0-12.0); NEUTROPHILS # (AUTO) 6.1 /CMM (1.8-8.9); NEUTROPHILS % (AUTO) 68.3 % (43.0-81.0); PLATELET COUNT (AUTO) 344 /CMM (150-450); RDW COEFFICIENT OF VARIATION 12.1 (11.5-15.0); RED BLOOD CELL COUNT(AUTO) 5.56 MIL/uL (4.5-6.0); WHITE BLOOD COUNT (AUTO) 8.8 K/uL (4.3-11.0)
[2017-12-28 12:15] LABS: APPEARANCE,URINE Clear (CLEAR); BILIRUBIN,URINE SMALL (NEGATIVE); BLOOD, URINE Large Ery/uL (NEGATIVE); COLOR,URINE Dark (YELLOW); KETONES,URINE Negative (NEGATIVE); LEUKOCYTE ESTERASE ,URINE Negative (NEGATIVE); NITRITE, URINE Negative (NEGATIVE); PH,URINE 5.5 (5.0-8.0); PROTEIN,URINE 100 mg/dl (NEGATIVE); UGLUCOSE Negative (NEGATIVE); UROBILINOGEN,URINE 0.2 EU/dL (0.2)
[2017-12-28 12:21] LABS: CALCIUM, SERUM 10.2 mg/dL (8.5-10.1); CARBON DIOXIDE 28 mmol/L (21-32); CHLORIDE 104 mmol/L (98-107); CREATININE 1.3 mg/dL (0.6-1.3); GLUCOSE 118 mg/dL (74-106); POTASSIUM 4.2 mmol/L (3.5-5.1); SODIUM SERUM 140 mmol/L (136-145); UREA NITROGEN, BLOOD 13 mg/dL (7-18)
[2017-12-28 12:22] LABS: BACTERIA,URINE Few /HPF (None Seen); SQUAMOUS EPITHELIAL CELL,UR Rare /HPF (None Seen)
[2017-12-28 12:27] LABS: ALANINE AMINOTRANSFERASE 39 U/L (12-78); ALBUMIN 4.6 g/dL (3.4-5.0); ALCOHOL, BLOOD < 3 mg/dL (0-0); ALKALINE PHOSPHATASE 161 U/L (46-116); ASPARTATE AMINOTRANSFERASE 12 U/L (15-37); BILIRUBIN,DIRECT 0.1 mg/dL (0.0-0.2); BILIRUBIN,TOTAL 0.6 mg/dL (0.2-1.0); SALICYLATE 1.2 mg/dL (2.8-20.0); TOTAL PROTEIN, SERUM 9.4 g/dL (6.4-8.2)
[2017-12-28 12:28] LABS: ACETAMINOPHEN 0 ug/ml (10-30)
[2017-12-28] MEDS ORDERED: MIRT15TA PO (13:38)
[2017-12-28] MEDS ORDERED: EFAV1TAB PO (13:38)
[2017-12-28] MEDS ORDERED: ATOR20TA PO (13:38)
[2017-12-28] MEDS ORDERED: NAPR-1009 PO (13:38)
[2017-12-28] MEDS ORDERED: RISP0.5T5 PO (13:39)
--- NOTE | 2017-12-28 14:00 | NUR ---
ZIGGY ELIZONDO AT BEDSIDE FOR PET EVALUATION
--- NOTE | 2017-12-28 14:17 | NUR ---
REPORT GIVEN TO NATALIE ELIZONDO FOR CONTINUITY OF CARE IN [facility] PSYCH
[2017-12-28] MEDS ORDERED: LORAZEPAM 0.5 MG TABLET PO PRN (15:00)
[2017-12-28] MEDS ORDERED: MAGNESIUM HYDROXIDE 30 ML UDC PO PRN (15:00)
[2017-12-28] MEDS ORDERED: ACETAMINOPHEN 325 MG TABLET PO PRN (15:00)
[2017-12-28] MEDS ORDERED: MAG HYDROX/AL HYDROX/SIMETH 30 ML UDC PO PRN (15:00)
--- NOTE | 2017-12-28 15:47 | NUR ---
GPS/RN-NOTES ADMITTED 57Y.O MALE PATIENT FROM [facility] ER .PATIENT BROUGHT IN BY ER STAFF VIA WHEELCHAIR.PER HOLD PATIENT ON 5150 FOR DANGER TO SELF PLAN TO OD WITH MEDICATIONS. PATIENT IS UNDER THE CARE OF DR. LEMUS ( PSYCHIATRIST) WITH ORDERS AND DUSTIN WOLFE (CARTON LETTERING MACHINE OPERATOR). BOTH MD MAD AWARE OF PATIENT ADMISSION. PER DUSTIN WOLFE HE WILL RECONCILE PATIENT MEDICATIONS. UPON FACE TO FACE ASSESSMENT PATIENT ALERT ORIENTED X4 AMBULATORY WITH STEADY GAIT,CALM AND COOPERATIVE DURING ADMISSION PROCESS. PATIENT VERBALIZE HE IS DEPRESSED BUT DENIES SI/HI AT THIS TIME. BODY ASSESSMENT AND CONTRABAND DONE. PATIENT'S RIGHT WAS DISCUSSED WITH THE PATIENT WITH UNDERSTANDING AND BOOKLET WAS GIVEN TO HIM. PATIENT HAD NO FAMILY TO BE NOTIFIED ON THE ADMISSION.
[2017-12-28] MEDS ORDERED: HYDROCODONE/APAP 10/325MG 1 EA TABLET PO PRN (16:00)
[2017-12-28 16:05] VITALS: BP 142/92
--- NOTE | 2017-12-28 19:27 | NUR ---
GPS/RN-NOTES PATIENT WATCHING TV IN THE DAY ROOM,CALM AND COOPERATIVE, NO ACUTE DISTRESS NOTED. ENDORSE TO INCOMING NURSE FOR CONTINUITY OF CARE.
[2017-12-28 20:05] VITALS: BP 111/76
[2017-12-28] MEDS: NAPROXEN 500 MG TABLET PO PRN (20:41)
[2017-12-28] MEDS: ATORVASTATIN 10 MG TABLET PO SCH (21:09)
[2017-12-28] MEDS: MIRTAZAPINE 15 MG TABLET PO SCH (21:10)
[2017-12-28] MEDS: QUETIAPINE FUMARATE 100 MG TABLET PO SCH (21:10)
[2017-12-28] MEDS ORDERED: MIRTAZAPINE 15 MG TABLET PO SCH (22:00)
[2017-12-28] MEDS ORDERED: Medication Not On Formulary EA (Efavirenz/Emtricitab/Tenofovir (Atripla Tablet) 1 EACH) PO SCH (22:00)
[2017-12-28] MEDS: TEMAZEPAM 7.5 MG CAPSULE PO PRN (23:34)
[2017-12-29 07:24] LABS: BASOPHILS % (AUTO) 0.5 % (0.0-2.0); EOSINOPHILS # (AUTO) 0.2 /CMM (0.0-0.7); EOSINOPHILS % (AUTO) 3.5 % (0.0-6.0); HEMATOCRIT 46 % (39-51); HEMOGLOBIN 15.5 g/dL (13.5-17.5); LYMPHOCYTES # (AUTO) 2.5 /CMM (0.8-4.8); MEAN CORPUSCULAR HEMOGLOBIN 31 PG (26.0-33.0); MEAN CORPUSCULAR HGB CONC 34 g/dl (31.0-36.0); MEAN CORPUSCULAR VOLUME 91 fL (80-96); MONOCYTES # (AUTO) 0.6 /CMM (0.1-1.30); NEUTROPHILS # (AUTO) 3.3 /CMM (1.8-8.9); PLATELET COUNT (AUTO) 272 /CMM (150-450); RDW COEFFICIENT OF VARIATION 12.9 (11.5-15.0); WHITE BLOOD COUNT (AUTO) 6.7 K/uL (4.3-11.0)
[2017-12-29 07:36] LABS: GAMMA GLUTAMYL TRANSFERASE 139 U/L (5-85)
[2017-12-29 07:39] LABS: CALCIUM, SERUM 9.2 mg/dL (8.5-10.1); CREATININE 1.3 mg/dL (0.6-1.3); MAGNESIUM 2.3 mg/dL (1.8-2.4); POTASSIUM 3.9 mmol/L (3.5-5.1)
[2017-12-29 07:51] LABS: BILIRUBIN,TOTAL 0.6 mg/dL (0.2-1.0); PHOSPHORUS 4.2 mg/dL (2.5-4.9); TOTAL PROTEIN, SERUM 7.9 g/dL (6.4-8.2)
[2017-12-29 08:00] VITALS: BP 122/75
[2017-12-29] MEDS: EMTRICITABINE 200 MG CAPSULE PO SCH (08:28)
[2017-12-29] MEDS: EFAVIRENZ 600 MG TABLET PO SCH (08:28)
[2017-12-29] MEDS: PANTOPRAZOLE 40 MG TABLET.DR PO SCH (08:28)
[2017-12-29] MEDS: TENOFOVIR DISOPROXIL FUMARATE 300 MG TABLET PO SCH (08:29)
[2017-12-29] MEDS ORDERED: LANSOPRAZOLE 15 MG PO SCH (09:00)
[2017-12-29 16:05] VITALS: BP 107/71
[2017-12-29] MEDS: NAPROXEN 500 MG TABLET PO PRN (18:26)
--- NOTE | 2017-12-29 18:27 | NUR ---
RN NOTE:MEDICATED WITH NAPROXEN C/O PAIN WILL CONTINUE TO MONITOR.
[2017-12-29 19:52] VITALS: BP 123/76
[2017-12-29] MEDS: ATORVASTATIN 10 MG TABLET PO SCH (21:18)
[2017-12-29] MEDS: MIRTAZAPINE 15 MG TABLET PO SCH (21:19)
[2017-12-29] MEDS: QUETIAPINE FUMARATE 100 MG TABLET PO SCH (21:19)
[2017-12-30 08:00] VITALS: BP 119/71
[2017-12-30] MEDS: TENOFOVIR DISOPROXIL FUMARATE 300 MG TABLET PO SCH (08:27)
[2017-12-30] MEDS: EFAVIRENZ 600 MG TABLET PO SCH (08:27)
[2017-12-30] MEDS: EMTRICITABINE 200 MG CAPSULE PO SCH (08:27)
[2017-12-30] MEDS: PANTOPRAZOLE 40 MG TABLET.DR PO SCH (08:27)
--- NOTE | 2017-12-30 10:33 | NUR ---
Initial Discharge Note: Patient states that [facility]. Room & Boarding [address] in [place] [phone] . The assembler trim's name is Marc. Patient states that - at this point - he does not want SW to contact anyone. SW explained that she will have to call assembler trim Marc to confirm if patient is able to return. Patient states that he does not want SW to do that. Patient stated that he wants bus tokens upon discharge. SW stated that she will attempt to secure those for patient. SW to follow up with MD and facilitate safe and proper discharge.
[2017-12-30 14:20] LABS: CALCIUM, IONIZED 5.2 mg/dL (4.5-5.6)
[2017-12-30 16:00] VITALS: BP 120/76
[2017-12-30 20:00] VITALS: BP 124/77
[2017-12-30] MEDS: ATORVASTATIN 10 MG TABLET PO SCH (21:45)
[2017-12-30] MEDS: QUETIAPINE FUMARATE 100 MG TABLET PO SCH (21:45)
[2017-12-30] MEDS: MIRTAZAPINE 15 MG TABLET PO SCH (21:45)
[2017-12-30] MEDS: TEMAZEPAM 7.5 MG CAPSULE PO PRN (21:46)
[2017-12-31 08:00] VITALS: BP 115/70
[2017-12-31] MEDS: EFAVIRENZ 600 MG TABLET PO SCH (08:44)
[2017-12-31] MEDS: PANTOPRAZOLE 40 MG TABLET.DR PO SCH (08:44)
[2017-12-31] MEDS: EMTRICITABINE 200 MG CAPSULE PO SCH (08:44)
[2017-12-31] MEDS: TENOFOVIR DISOPROXIL FUMARATE 300 MG TABLET PO SCH (09:00)
[2017-12-31 16:00] VITALS: BP 148/78
[2017-12-31 20:00] VITALS: BP 125/72
[2017-12-31] MEDS: QUETIAPINE FUMARATE 100 MG TABLET PO SCH (22:03)
[2017-12-31] MEDS: ATORVASTATIN 10 MG TABLET PO SCH (22:03)
[2017-12-31] MEDS: MIRTAZAPINE 15 MG TABLET PO SCH (22:03)
[2017-12-31] MEDS: TEMAZEPAM 7.5 MG CAPSULE PO PRN (22:04)
[2018-01-01] MEDS: PANTOPRAZOLE 40 MG TABLET.DR PO SCH (07:29)
[2018-01-01 08:00] VITALS: BP 114/87
[2018-01-01] MEDS: EFAVIRENZ 600 MG TABLET PO SCH (09:12)
[2018-01-01] MEDS: EMTRICITABINE 200 MG CAPSULE PO SCH (09:12)
[2018-01-01] MEDS: TENOFOVIR DISOPROXIL FUMARATE 300 MG TABLET PO SCH (09:12)
[2018-01-01 16:00] VITALS: BP 122/80
[2018-01-01] MEDS: NAPROXEN 500 MG TABLET PO PRN (18:10)
[2018-01-01 20:00] VITALS: BP 130/83
[2018-01-01] MEDS: ATORVASTATIN 10 MG TABLET PO SCH (21:46)
[2018-01-01] MEDS: QUETIAPINE FUMARATE 100 MG TABLET PO SCH (21:46)
[2018-01-01] MEDS: MIRTAZAPINE 15 MG TABLET PO SCH (21:47)
[2018-01-01] MEDS: TEMAZEPAM 7.5 MG CAPSULE PO PRN (21:47)
[2018-01-02 08:00] VITALS: BP 135/76
[2018-01-02] MEDS: PANTOPRAZOLE 40 MG TABLET.DR PO SCH (08:10)
[2018-01-02] MEDS: EMTRICITABINE 200 MG CAPSULE PO SCH (08:11)
[2018-01-02] MEDS: TENOFOVIR DISOPROXIL FUMARATE 300 MG TABLET PO SCH (08:11)
[2018-01-02] MEDS: EFAVIRENZ 600 MG TABLET PO SCH (08:12)
[2018-01-02 16:00] VITALS: BP 122/74
[2018-01-02] MEDS: NAPROXEN 500 MG TABLET PO PRN (17:16)
[2018-01-02 20:06] VITALS: BP 122/74
[2018-01-02] MEDS: ATORVASTATIN 10 MG TABLET PO SCH (21:42)
[2018-01-02] MEDS: TEMAZEPAM 7.5 MG CAPSULE PO PRN (21:42)
[2018-01-02] MEDS: QUETIAPINE FUMARATE 100 MG TABLET PO SCH (21:42)
[2018-01-02] MEDS: MIRTAZAPINE 15 MG TABLET PO SCH (21:42)
[2018-01-03 08:00] VITALS: BP 128/77
[2018-01-03] MEDS: TENOFOVIR DISOPROXIL FUMARATE 300 MG TABLET PO SCH (08:23)
[2018-01-03] MEDS: EMTRICITABINE 200 MG CAPSULE PO SCH (08:23)
[2018-01-03] MEDS: PANTOPRAZOLE 40 MG TABLET.DR PO SCH (08:23)
[2018-01-03] MEDS: EFAVIRENZ 600 MG TABLET PO SCH (08:24)
[2018-01-03 16:00] VITALS: BP 124/87
[2018-01-03 19:36] VITALS: BP 119/80
[2018-01-03] MEDS: ATORVASTATIN 10 MG TABLET PO SCH (21:48)
[2018-01-03] MEDS: MIRTAZAPINE 15 MG TABLET PO SCH (21:48)
[2018-01-03] MEDS: QUETIAPINE FUMARATE 100 MG TABLET PO SCH (21:48)
[2018-01-04 08:00] VITALS: BP 119/73
[2018-01-04] MEDS: PANTOPRAZOLE 40 MG TABLET.DR PO SCH (08:05)
[2018-01-04] MEDS: EFAVIRENZ 600 MG TABLET PO SCH (08:06)
[2018-01-04] MEDS: EMTRICITABINE 200 MG CAPSULE PO SCH (08:06)
[2018-01-04] MEDS: TENOFOVIR DISOPROXIL FUMARATE 300 MG TABLET PO SCH (08:06)
[2018-01-04 16:00] VITALS: BP 130/81
[2018-01-04] MEDS ORDERED: LACTULOSE 10 G/15 ML UDC (PYXIS) PO PRN (16:30)
[2018-01-04 20:00] VITALS: BP 117/70
[2018-01-04] MEDS: QUETIAPINE FUMARATE 100 MG TABLET PO SCH (21:39)
[2018-01-04] MEDS: MIRTAZAPINE 15 MG TABLET PO SCH (21:40)
[2018-01-04] MEDS: ATORVASTATIN 10 MG TABLET PO SCH (21:40)
[2018-01-04] MEDS: SENNOSIDES 8.6 MG TABLET PO SCH (21:40)
[2018-01-05] MEDS: PANTOPRAZOLE 40 MG TABLET.DR PO SCH (07:30)
[2018-01-05 08:00] VITALS: BP 113/78
[2018-01-05] MEDS: EFAVIRENZ 600 MG TABLET PO SCH (09:09)
[2018-01-05] MEDS: EMTRICITABINE 200 MG CAPSULE PO SCH (09:09)
[2018-01-05] MEDS: TENOFOVIR DISOPROXIL FUMARATE 300 MG TABLET PO SCH (09:09)
--- NOTE | 2018-01-05 10:01 | NUR ---
Discharge Planning: SW met with pt patient for discharge planning purposes. SW confirmed that pt would like to return to [facility]. Room & Boarding [address] [place] [address] in [place] [phone] once he is ready to discharge. SW inquired if there was someone at the facility that could provide transportation for the pt; however pt denied. Pt does not want anyone notified of his whereabouts. Pt reported being capable of taking the bus back to the board and care once he is ready to discharge. Pt agreed to accept tokens for transportation once he is ready to discharge. SW will follow up to ensure pt is safely and adequately discharged.
[2018-01-05 16:00] VITALS: BP 127/69
[2018-01-05 20:01] VITALS: BP 139/82
[2018-01-05] MEDS: QUETIAPINE FUMARATE 100 MG TABLET PO SCH (21:18)
[2018-01-05] MEDS: MIRTAZAPINE 15 MG TABLET PO SCH (21:19)
[2018-01-05] MEDS: ATORVASTATIN 10 MG TABLET PO SCH (21:19)
[2018-01-05] MEDS: SENNOSIDES 8.6 MG TABLET PO SCH (21:19)
[2018-01-06 08:08] VITALS: BP 122/76
[2018-01-06] MEDS: EFAVIRENZ 600 MG TABLET PO SCH (08:10)
[2018-01-06] MEDS: TENOFOVIR DISOPROXIL FUMARATE 300 MG TABLET PO SCH (08:10)
[2018-01-06] MEDS: PANTOPRAZOLE 40 MG TABLET.DR PO SCH (08:10)
[2018-01-06] MEDS: EMTRICITABINE 200 MG CAPSULE PO SCH (08:10)
[2018-01-06 16:00] VITALS: BP 124/58
[2018-01-06 19:55] VITALS: BP 129/84
[2018-01-06 20:00] VITALS: BP 129/84
[2018-01-06] MEDS: ATORVASTATIN 10 MG TABLET PO SCH (21:19)
[2018-01-06] MEDS: SENNOSIDES 8.6 MG TABLET PO SCH (21:19)
[2018-01-06] MEDS: MIRTAZAPINE 15 MG TABLET PO SCH (21:19)
[2018-01-06] MEDS: TEMAZEPAM 7.5 MG CAPSULE PO PRN (21:19)
[2018-01-06] MEDS: QUETIAPINE FUMARATE 100 MG TABLET PO SCH (21:20)
[2018-01-07 08:00] VITALS: BP 112/70
[2018-01-07] MEDS: EFAVIRENZ 600 MG TABLET PO SCH (08:12)
[2018-01-07] MEDS: EMTRICITABINE 200 MG CAPSULE PO SCH (08:12)
[2018-01-07] MEDS: PANTOPRAZOLE 40 MG TABLET.DR PO SCH (08:12)
[2018-01-07] MEDS: TENOFOVIR DISOPROXIL FUMARATE 300 MG TABLET PO SCH (08:12)
--- NOTE | 2018-01-07 09:33 | NUR ---
DR. LEMUS GAVE AN ORDER TO D/C HOLD AND D/C TO [facility] AND TO FOLLOW UP WITH PSYCH AND MEDICAL DOCTORS. PT. WITHOUT DISTRESS, DENIES SUICIDAL AND HOMICIDAL.
--- NOTE | 2018-01-07 10:32 | NUR ---
Discharge Planning: SW was informed by the Nursing Edger Automatic that the hospital would not have any bus tokens until 01/10/18. ADRIANNE inquired about providing transportation via taxi to the [facility] Room [facility] Boarding [address] [place] [address] [place] [address]; which was approved by Edward. Pt is ambulatory, alert and oriented x/4. Pt however denied transportation via taxi, stating, "I don't want to go in a taxi , I can go on the bus." ADRIANNE reassured pt that the hospital would be paying for the taxi so as not to worry. Pt however, continued to deny transportation via taxi and stated, "I don't want a taxi, I'll take bus tokens." ADRIANNE informed pt that the hospital did not have any tokens available until Wednesday and pt stated, "It's okay I have my own money for the bus." ADRIANNE will follow up.
--- NOTE | 2018-01-07 11:10 | NUR ---
MARIIA WOLFE NOTIFIED ABOUT THE DISCHARGE AND SAID OK FOR DISCHARGE AND GAVE PRESCRIPTIONS. PT. SIGNED THE DISCHARGE PAPERS AND BELONGINGS READY.
--- NOTE | 2018-01-07 12:35 | NUR ---
Pt. left the unit with belongings and escorted by staff to the lobby and a walk out. Left without distress, ambulatory and on stable condition. Pt. refused a taxi and saying he will making a lot of stops and will buy food before going to the board and care. Pt. instructed on meds to continue at home and verbalizes understandings and advised to make a follow up with psych and medical doctors and agreed. V/S taken: BP 140/87, FL 88, temp 98.0, RR 18 and oxygen sat 100%.
--- NOTE | 2018-01-07 16:39 | NUR ---
Discharge Plan: Patient to discharge to [facility] and [facility], located at [address] [place] [address] [place] [address] / [phone] via public transportation at 1:00pm. Patient does not want SW to notify the Board & Care and or family and friends of his discharge plan and stated, "No one needs to know about anything, I don't want you to call anyone." Pt is ambulatory, alert and oriented x/4. Pt denied transportation via taxi, stating, "I don't want to go in a taxi , I can go on the bus." SW reassured pt that the hospital would be paying for the taxi so as not to worry. Pt however, continued to deny transportation via taxi and stated, "I don't want a taxi, I'll take bus tokens." SW informed pt that the hospital did not have any tokens available until Wednesday and pt stated, "It's okay I have my own money for the bus." Pt was referred to his primary providers: Chief Business Officer: Dr. Bryan [address] [facility] [address], [place] [address] / [phone] and Psychiatrist: Dr. King [address] [place] [address]/ [phone].
== END 2018-01-07 12:35 | disposition home or self-care (01) | DRG 885 ==
LOC: ER 11:28 → GPS 14:19
PROVIDERS: ADMIT Psychiatry & Neurology Psychiatry; ATTEND Nurse Practitioner Acute Care
DX: F33.3 Major depressive disorder, recurrent, severe with psychotic symptoms (principal); E83.52 Hypercalcemia; H33.21 Serous retinal detachment, right eye; I10 Essential (primary) hypertension; K21.9 Gastro-esophageal reflux disease without esophagitis; F14.10 Cocaine abuse, uncomplicated; F12.10 Cannabis abuse, uncomplicated; G89.29 Other chronic pain; H26.9 Unspecified cataract; Z79.899 Other long term (current) drug therapy; Z91.5 Personal history of self-harm; M54.9 Dorsalgia, unspecified; M19.90 Unspecified osteoarthritis, unspecified site; K29.70 Gastritis, unspecified, without bleeding; K59.00 Constipation, unspecified; F20.9 Schizophrenia, unspecified; E78.00 Pure hypercholesterolemia, unspecified; Z91.19 Patient's noncompliance with other medical treatment and regimen
CPT/HCPCS: 36415; 80048-TC; 80053-TC; 80076-TC; 80305; 81000-TC; 82330; 82977-TC; 83615-TC; 83690-TC; 83735-TC; 83970; 84100-TC; 84439-TC; 84443-TC; 85025-TC; 87081-TC; A4606; G0480; Z7610

== ENCOUNTER 2018-03-25 10:49 | Inpatient (IN) | payer MEDICARE, MEDICAID ==
[~2018-03-25] VITALS: Ht 172.7 cm; Wt 109.8 kg
[~2018-03-25 10:49] MED LIST changes: +ATOR20TA PO; +EFAV1TAB PO; -EFAV600T PO; -EMTR1TAB6 PO; +MIRT15TA PO; +NAPR-1009 PO; -TRAZ-144 PO; -ZOLP10TA2 PO; -[UNRECOGNIZED DRUG - OTHER] PO
--- NOTE | 2018-03-25 11:07 | NUR ---
FEELS DEPRESSED AND SI WITH PLAN TO OD ON MEDICATIONS. WANTS TO BE ADMITTED GPS
[2018-03-25 11:33] LABS: BASOPHILS % (AUTO) 0.7 % (0.0-2.0); EOSINOPHILS % (AUTO) 3.9 % (0.0-6.0); HEMATOCRIT 40 % (39-51); HEMOGLOBIN 13.8 g/dL (13.5-17.5); LYMPHOCYTES # (AUTO) 1.7 /CMM (0.8-4.8); LYMPHOCYTES % (AUTO) 35.5 % (20.0-44.0); MEAN CORPUSCULAR HGB CONC 34 g/dl (31.0-36.0); MEAN CORPUSCULAR VOLUME 89 fL (80-96); MONOCYTES # (AUTO) 0.5 /CMM (0.1-1.30); MONOCYTES % (AUTO) 9.7 % (2.0-12.0); NEUTROPHILS # (AUTO) 2.3 /CMM (1.8-8.9); NEUTROPHILS % (AUTO) 50.2 % (43.0-81.0); PLATELET COUNT (AUTO) 261 /CMM (150-450); RDW COEFFICIENT OF VARIATION 12.4 (11.5-15.0); RED BLOOD CELL COUNT(AUTO) 4.54 MIL/uL (4.5-6.0); WHITE BLOOD COUNT (AUTO) 4.7 K/uL (4.3-11.0)
[2018-03-25 11:43] LABS: CALCIUM, SERUM 8.6 mg/dL (8.5-10.1); CARBON DIOXIDE 26 mmol/L (21-32); CHLORIDE 108 mmol/L (98-107); CREATININE 1.1 mg/dL (0.6-1.3); GLUCOSE 101 mg/dL (74-106); POTASSIUM 3.7 mmol/L (3.5-5.1); SODIUM SERUM 141 mmol/L (136-145); UREA NITROGEN, BLOOD 12 mg/dL (7-18)
[2018-03-25 11:48] LABS: ALANINE AMINOTRANSFERASE 21 U/L (12-78); ALBUMIN 3.7 g/dL (3.4-5.0); ALKALINE PHOSPHATASE 106 U/L (46-116); ASPARTATE AMINOTRANSFERASE 11 U/L (15-37); BILIRUBIN,TOTAL 0.3 mg/dL (0.2-1.0); TOTAL PROTEIN, SERUM 7.2 g/dL (6.4-8.2)
[2018-03-25 11:49] LABS: ACETAMINOPHEN 0 ug/ml (10-30); ALCOHOL, BLOOD < 3 mg/dL (0-0); SALICYLATE 1.4 mg/dL (2.8-20.0)
[2018-03-25 12:17] LABS: APPEARANCE,URINE Clear (CLEAR); BILIRUBIN,URINE Negative (NEGATIVE); BLOOD, URINE Negative Ery/uL (NEGATIVE); KETONES,URINE Trace (NEGATIVE); LEUKOCYTE ESTERASE ,URINE Negative (NEGATIVE); NITRITE, URINE Negative (NEGATIVE); PH,URINE 5.5 (5.0-8.0); PROTEIN,URINE Negative (NEGATIVE); UGLUCOSE Negative (NEGATIVE); UROBILINOGEN,URINE 0.2 EU/dL (0.2)
[2018-03-25 12:21] LABS: COLOR,URINE Dark Yellow (YELLOW)
[2018-03-25 12:25] LABS: BACTERIA,URINE None seen /HPF (None Seen); MUCUS,URINE Few /LPF (None Seen); SQUAMOUS EPITHELIAL CELL,UR Few /HPF (None Seen); WBC,URINE 0-3 /HPF (0-3)
--- NOTE | 2018-03-25 13:13 | NUR ---
CALLED GSE MECHANIC DANIAL BORJA FOR PSYCH EVAL AND SAID HE WOULD BE HERE WITHIN THE HOUR.
--- NOTE | 2018-03-25 13:59 | NUR ---
ART AT BEDSIDE FOR PSYCH EVAL
--- NOTE | 2018-03-25 14:54 | NUR ---
GAVE REPORT TO JAIME GRAY ROOM [address] DR MARIAH TRINIDAD BIPOLAR DANGER TO SELF SI
[2018-03-25] MEDS ORDERED: OMEP20CA10 PO (15:01)
[2018-03-25] MEDS ORDERED: RISP0.2515 PO (15:01)
[2018-03-25] MEDS ORDERED: MELO-105 PO (15:01)
[2018-03-25] MEDS ORDERED: DIVA-76 PO (15:01)
[2018-03-25] MEDS ORDERED: AMLO10TA6 PO (15:01)
[2018-03-25] MEDS ORDERED: NAPR-1009 PO (15:06)
--- NOTE | 2018-03-25 15:25 | NUR ---
ADMISSION NOTES PATIENT ADMITTED FROM ER 57Y/OLD MALE ON DX OF DTS, SI IDEATION, PLAN TO OVERDOSE SELF WITH DRUGS. PATIENT A/O X4, VERY DEPRESS, ANXIOUS, VAGUE THOUGHTS, HALLUCINATION PATIENT STATE "SOMEBODY TELLING ME TO KILL MY SELF". PATIENT V/S TAKEN BP-134/85, P-77, R-19, T-97.7, R-19, O2-96 ROOM AIR , ALSO PATIENT WAS COMPLAINING OF LOWER BACK PAIN 7/10 PER PAIN SLIDING SCALE. SKIN ASSESSMENT DONE, SKIN INTACT. PATIENT AMBULATORY SELF CARE , USING BATHROOM. PATIENT HAS NO ACUTE RESPIRATORY DISTRESS, LUNGS SOUNDS ARE CLEAR DURING AUSCULTATION. BELONGING AND CONTRABAND CHECKED. ADMINISTERED SOME SNACKS, AND WATER. DR LEMUS, AND DR BALBUENA AWARE OF NEW PATIENT , AND MEDICATION. CONTINUED MONITORING FOR SAFETY.
[2018-03-25] MEDS ORDERED: MAG HYDROX/AL HYDROX/SIMETH 30 ML UDC PO PRN (15:30)
[2018-03-25] MEDS ORDERED: MAGNESIUM HYDROXIDE 30 ML UDC PO PRN (15:30)
[2018-03-25] MEDS ORDERED: ACETAMINOPHEN 325 MG TABLET PO PRN (15:30)
[2018-03-25] MEDS ORDERED: LORAZEPAM 0.5 MG TABLET PO PRN (15:30)
[2018-03-25 15:33] VITALS: BP 134/85
[2018-03-25 15:49] VITALS: BP 134/81
--- NOTE | 2018-03-25 16:10 | NUR ---
RN NOTES ADMINISTERED ATIVAN 0.5 MG PO PRN FOR ANXIETY PER PATIENT REQUEST, V/S TAKEN UO=884/85, P-77, CONTINUED MONITORING.
--- NOTE | 2018-03-25 16:50 | NUR ---
DR. BALBUENA NOTIFIED ABOUT THE ADMISSION AND TOLD TO RECONCILE MEDS AND SAID OK.
[2018-03-25] MEDS ORDERED: HYDROCODONE/APAP 10/325MG 1 EA TABLET PO PRN (19:30)
[2018-03-25 19:49] VITALS: BP 135/80
[2018-03-25] MEDS: ATRIPLA PO SCH (21:13)
[2018-03-25] MEDS: TEMAZEPAM 7.5 MG CAPSULE PO PRN (21:47)
[2018-03-25] MEDS: DIVALPROEX SODIUM 500 MG TABLET.DR PO SCH (21:47)
[2018-03-25] MEDS: risperiDONE 1 MG TABLET PO SCH (21:47)
[2018-03-25] MEDS: MIRTAZAPINE 15 MG TABLET PO SCH (21:47)
[2018-03-26 07:09] LABS: ALBUMIN 3.2 g/dL (3.4-5.0); BILIRUBIN,TOTAL 0.3 mg/dL (0.2-1.0); CALCIUM, SERUM 8.2 mg/dL (8.5-10.1); CREATININE 0.9 mg/dL (0.6-1.3); POTASSIUM 3.7 mmol/L (3.5-5.1); TOTAL PROTEIN, SERUM 6.3 g/dL (6.4-8.2)
[2018-03-26 07:24] LABS: CHOLESTEROL 104 mg/dL (<200); HDL CHOLESTEROL 24 mg/dL (40-60); LDL 64 mg/dL (0-99); TRIGLYCERIDES 97 mg/dL (30-150)
[2018-03-26] MEDS: PANTOPRAZOLE 40 MG TABLET.DR PO SCH (07:57)
[2018-03-26 08:00] VITALS: BP 110/74
[2018-03-26] MEDS: MELOXICAM 7.5 MG TABLET PO SCH ×2 (08:34→17:03)
[2018-03-26] MEDS: ATRIPLA PO SCH (08:34)
[2018-03-26] MEDS: AMLODIPINE BESYLATE 10 MG TABLET PO SCH (08:35)
[2018-03-26 16:05] VITALS: BP 122/63
[2018-03-26 20:00] VITALS: BP 122/85
[2018-03-26] MEDS: DIVALPROEX SODIUM 500 MG TABLET.DR PO SCH (22:00)
[2018-03-26] MEDS: MIRTAZAPINE 15 MG TABLET PO SCH (22:00)
[2018-03-26] MEDS: ATORVASTATIN 10 MG TABLET PO SCH (22:00)
[2018-03-26] MEDS: risperiDONE 1 MG TABLET PO SCH (22:01)
[2018-03-26] MEDS: TEMAZEPAM 7.5 MG CAPSULE PO PRN (22:01)
[2018-03-27 08:00] VITALS: BP 115/76
[2018-03-27] MEDS: PANTOPRAZOLE 40 MG TABLET.DR PO SCH (08:12)
[2018-03-27] MEDS: AMLODIPINE BESYLATE 10 MG TABLET PO SCH (08:36)
[2018-03-27] MEDS: ATRIPLA PO SCH (08:36)
[2018-03-27] MEDS: MELOXICAM 7.5 MG TABLET PO SCH ×2 (09:22→16:16)
[2018-03-27 15:59] VITALS: BP 122/79
[2018-03-27 19:53] VITALS: BP 121/91
[2018-03-27] MEDS: DIVALPROEX SODIUM 500 MG TABLET.DR PO SCH (21:18)
[2018-03-27] MEDS: risperiDONE 1 MG TABLET PO SCH (21:18)
[2018-03-27] MEDS: ATORVASTATIN 10 MG TABLET PO SCH (21:18)
[2018-03-27] MEDS: MIRTAZAPINE 15 MG TABLET PO SCH (21:19)
[2018-03-27] MEDS: TEMAZEPAM 7.5 MG CAPSULE PO PRN (22:28)
[2018-03-28 08:00] VITALS: BP 124/90
[2018-03-28] MEDS: MELOXICAM 7.5 MG TABLET PO SCH ×2 (08:41→16:32)
[2018-03-28] MEDS: AMLODIPINE BESYLATE 10 MG TABLET PO SCH (08:42)
[2018-03-28] MEDS: PANTOPRAZOLE 40 MG TABLET.DR PO SCH (08:42)
[2018-03-28] MEDS: ATRIPLA PO SCH (08:42)
--- NOTE | 2018-03-28 14:50 | NUR ---
INITIAL DISCHARGE PLAN: Pt is currently homeless with a plan to go live with a friend named Marc at [address] [facility] [phone] . ADRIANNE will help for a safe and proper discharge in collaboration with .
[2018-03-28 16:00] VITALS: BP 122/70
[2018-03-28 19:35] VITALS: BP 135/68
[2018-03-28] MEDS: ATORVASTATIN 10 MG TABLET PO SCH (21:35)
[2018-03-28] MEDS: DIVALPROEX SODIUM 500 MG TABLET.DR PO SCH (21:35)
[2018-03-28] MEDS: risperiDONE 1 MG TABLET PO SCH (21:36)
[2018-03-28] MEDS: MIRTAZAPINE 15 MG TABLET PO SCH (21:36)
[2018-03-28] MEDS: TEMAZEPAM 7.5 MG CAPSULE PO PRN (22:52)
[2018-03-29 08:00] VITALS: BP 109/75
[2018-03-29 08:12] VITALS: BP 109/75
[2018-03-29] MEDS: PANTOPRAZOLE 40 MG TABLET.DR PO SCH (08:12)
[2018-03-29] MEDS: AMLODIPINE BESYLATE 10 MG TABLET PO SCH (08:12)
[2018-03-29] MEDS: ATRIPLA PO SCH (08:12)
[2018-03-29] MEDS: MELOXICAM 7.5 MG TABLET PO SCH (08:12)
--- NOTE | 2018-03-29 11:30 | NUR ---
GPS/RN PATIENT CLEARED FOR DISCHARGE HOME BY DR LEMUS AND MARKETING TECHNOLOGY COORDINATOR MARK. MEDICATIONS RECONCILED BY BOTH DR'S, PRESCRIPTIONS INCLUDED IN PACKET. EXIT CARE, AFTERCARE PLAN AND MEDICATIONS EXPLAINED TO PATIENT, VERBALIZED UNDERSTANDING. BELONGINGS AND VALUABLES RETURNED TO PATIENT, SIGNED BELONGINGS SHEET. SKIN INTACT,PATIENT DENIES SI/HI/AH UPON DISCHARGE, PSYCHIATRIC TREATMENT PLANS MET. LEFT UNIT CALM, COOPERATIVE, NO DISTRESS NOTED WITH FLIGHT STEWARD AT SIDE.
--- NOTE | 2018-03-29 13:55 | NUR ---
DISCHARGE NOTE: Pt was discharged at 11:30am home to [address] [place] [address] . Via public transportation payed by pt. No family to notify. Patient was referred to [facility]: [address] [place] [address] and will report for an Intake on Thursday April 05, 2018 before 5:00pm. Additional resources included [facility] [address] [place] [address] and [facility] [address] [place] [address] . Pt will schedule a follow up appointment with Psychiatrist: Dr. Eva King [address] [facility] [address] P: [phone] faxed continuing care forms to F: [phone] and Final Installer Inspector: Dr. Modesta Bryan [address] [place], [place] [phone] . The multidisciplinary exitcare form was done, printed, signed, and given to the patient. Addendum: 03/29/18 at 1405 by BOOGIE SILVER Pt denied suicidal/homicidal ideations and denied visual/auditory hallucinations. Pt appeared in a euthymic mood with congruent affect.
--- NOTE | 2018-04-22 11:09 | NUR ---
15 DAY SUBSTANCE ABUSE FOLLOW-UP: Unable to follow up due to pt having no phone.
== END 2018-03-29 11:45 | disposition home or self-care (01) | DRG 885 ==
LOC: ER 10:51 → GPS 15:19
PROVIDERS: ADMIT Psychiatry & Neurology Psychiatry; ATTEND Internal Medicine
DX: F33.3 Major depressive disorder, recurrent, severe with psychotic symptoms (principal); R45.851 Suicidal ideations; F12.90 Cannabis use, unspecified, uncomplicated; K21.9 Gastro-esophageal reflux disease without esophagitis; I10 Essential (primary) hypertension; E78.5 Hyperlipidemia, unspecified; F14.10 Cocaine abuse, uncomplicated; D64.9 Anemia, unspecified
CPT/HCPCS: 36415; 80048-TC; 80053-TC; 80061-TC; 80076-TC; 80305; 81000-TC; 85025-TC; 87081-TC; A4606; G0480; Z7610

== ENCOUNTER 2019-11-03 15:30 | Inpatient (IN) | payer OTHER ==
[~2019-11-03] VITALS: Ht 167.6 cm; Wt 111.1 kg
[~2019-11-03 15:30] MED LIST changes: +AMLO10TA7 PO; +HYDR-4354 PO; -HYDR-548 PO; -LANS15CA13 PO; +MELO-105 PO; -MIRT15TA PO; +OMEP20CA15 PO; -QUET300T2 PO; -RISP0.5T5 PO
--- NOTE | 2019-11-03 15:40 | NUR ---
CAME IN FOR HAVING SI THOUGHTS, "BEEN OFF MY PSYCH MEDS, USING ALCOHOL AND MARIJUANA. PLAN TO TAKE ALL MY SEROQUEL". TO ER BED 11, HOOKED TO MONITOR, CHANGED TO [facility]. PROVIDED W WARM BLANKET, AWAITING MD YUSUF.
[2019-11-03 16:18] LABS: BASOPHILS # (AUTO) 0.1 /CMM (0.0-0.2); BASOPHILS % (AUTO) 0.7 % (0.0-2.0); EOSINOPHILS % (AUTO) 3.1 % (0.0-6.0); HEMATOCRIT 44 % (39-51); HEMOGLOBIN 14.8 g/dL (13.5-17.5); LYMPHOCYTES % (AUTO) 7.9 % (20.0-44.0); MEAN CORPUSCULAR HGB CONC 34 g/dl (31.0-36.0); MEAN CORPUSCULAR VOLUME 94 fL (80-96); MONOCYTES # (AUTO) 0.9 /CMM (0.1-1.30); MONOCYTES % (AUTO) 7.5 % (2.0-12.0); NEUTROPHILS # (AUTO) 10.1 /CMM (1.8-8.9); NEUTROPHILS % (AUTO) 80.8 % (43.0-81.0); PLATELET COUNT (AUTO) 227 /CMM (150-450); RED BLOOD CELL COUNT(AUTO) 4.63 MIL/uL (4.5-6.0); WHITE BLOOD COUNT (AUTO) 12.5 K/uL (4.3-11.0)
[2019-11-03 16:27] LABS: CALCIUM, SERUM 9.2 mg/dL (8.5-10.1); CARBON DIOXIDE 31 mmol/L (21-32); CHLORIDE 109 mmol/L (98-107); CREATININE 1.2 mg/dL (0.6-1.3); GLUCOSE 116 mg/dL (74-106); SODIUM SERUM 145 mmol/L (136-145); UREA NITROGEN, BLOOD 18 mg/dL (7-18)
--- NOTE | 2019-11-03 16:30 | NUR ---
URINE SAMPLE SENT TO LAB
[2019-11-03 16:32] LABS: ALANINE AMINOTRANSFERASE 31 U/L (12-78); ALBUMIN 3.8 g/dL (3.4-5.0); ALCOHOL, BLOOD < 3 mg/dL (0-0); ALKALINE PHOSPHATASE 118 U/L (46-116); ASPARTATE AMINOTRANSFERASE 11 U/L (15-37); BILIRUBIN,TOTAL 0.3 mg/dL (0.2-1.0); TOTAL PROTEIN, SERUM 6.9 g/dL (6.4-8.2)
[2019-11-03 16:33] LABS: ACETAMINOPHEN 0 ug/ml (10-30); SALICYLATE 2.7 mg/dL (2.8-20.0)
[2019-11-03 16:39] LABS: APPEARANCE,URINE Clear (CLEAR); BILIRUBIN,URINE Negative (NEGATIVE); BLOOD, URINE Negative Ery/uL (NEGATIVE); COLOR,URINE Yellow (YELLOW); KETONES,URINE Trace (NEGATIVE); LEUKOCYTE ESTERASE ,URINE Negative (NEGATIVE); NITRITE, URINE Negative (NEGATIVE); PROTEIN,URINE Negative (NEGATIVE); UGLUCOSE Negative (NEGATIVE); UROBILINOGEN,URINE 0.2 EU/dL (0.2)
[2019-11-03 16:53] LABS: BACTERIA,URINE Few /HPF (None Seen); RBC,URINE 0-2 /HPF (0-2); SQUAMOUS EPITHELIAL CELL,UR Few /HPF (None Seen); WBC,URINE 0-2 /HPF (0-3)
--- NOTE | 2019-11-03 17:10 | NUR ---
FEROZ CALLED AND WILL BE HERE WITHIN THE HOUR.
--- NOTE | 2019-11-03 17:12 | NUR ---
DINNER TRAY PROVIDED, TOLERATED PO WELL.
--- NOTE | 2019-11-03 17:31 | NUR ---
PINKY AT BEDSIDE.
--- NOTE | 2019-11-03 18:59 | NUR ---
CALLED LOIDA MCNEIL FOR GPS BED.
--- NOTE | 2019-11-03 19:27 | NUR ---
report given to solomon of gps
--- NOTE | 2019-11-03 19:29 | NUR ---
REPORT RECEIVED FROM [employer] FOR FLORENTIN
--- NOTE | 2019-11-03 19:31 | NUR ---
REPORT RECEIVED FROM CARO HUBER FOR FLORENTIN
--- NOTE | 2019-11-03 20:00 | NUR ---
GPS PHARMACY TECHNICIAN INSTRUCTOR NOTES: RECEIVED 59 Y/O MALE PATIENT FROM [facility]. PATIENT ARRIVED ON THIS UNIT AT 2000 VIA STRETCHER WITH 1 NURSE ESCORT. PATIENT ADMITTED ON A 5150 HOLD FOR DTO. PER HOLD PATIENT ARRIVED TO [facility] REQUESTING FOR PSYCHIATRIC EVALUATION DUE TO SUICIDAL IDEATION AND HEARING VOICES. THE 5150 WAS REVIEWED AND THE DOCUMENTATION IN THE 5150 HOLD APPEARS TO REFLECT THE PRESENTATION OF THE PATIENT. UPON FACE TO FACE ASSESSMENT PATIENT NOTED DEPRESSED, COOPERATIVE, QUIET, AND ISOLATIVE. PT STATED, " I HEAR VOICES TO HARM MYSELF." PT DENIES PLAN TO HARM SELF OR OTHERS AT THIS TIME. PATIENT IS CURRENTLY LYING IN BED AWAKE. PT HAS NO S/S OF PAIN. NO S/S OF RESP DISTRESS AND BREATHING EVEN AND UNLABORED. PT IS ALERT AND ORIENTED X3 -4 ON ROOM AIR. PATIENT HAS NO NEEDS AT THIS TIME. PATIENT SIGNED PAPER WORK. PATIENT ADVISED OF HIS HOLD AND PATIENT RIGHTS HANDBOOK GIVEN. PATIENT IS UNDER THE PSYCHIATRIC CARE OF DR CHOU AND THE MEDICAL DR FLORES. PATIENTS BELONGINGS WERE INVENTORIED AND CHECKED FOR CONTRABAND. ALL CONTRABAND REMOVED AND STORED IN PATIENTS HALLWAY LOCKER. PATIENT ADVANCED DIRECTIVE PREFERENCES AND NECESSARY PAPERWORK COMPLETED. PATIENT SKIN ASSESSMENT COMPLETED WITH SKIN INTACT. PT ORIENTED TO ROOM, FLOOR, AND STAFF WITH ALL QUESTIONS ANSWERED. PATIENT EDUCATED ON THE USEDF OF CALL RAMAN. PATIENT N4ED SIDERAILS ARE UP X2 FOR SAFETY. INITIAL BLOOD SUGAR CHECK DONE PATIENTS BED LOCKED, LOW AND I WILL CONTINUE TO MONITOR THIS PATIENT Q15 MIN WITH THE HELP OF THE4 STAFF TO MAINTAIN SAFETY.
[2019-11-03 20:10] VITALS: BP 130/73
[2019-11-03] MEDS ORDERED: ACETAMINOPHEN 325 MG TABLET PO PRN (20:30)
[2019-11-03] MEDS ORDERED: MAGNESIUM HYDROXIDE 30 ML UDC PO PRN (20:30)
[2019-11-03] MEDS ORDERED: LORAZEPAM 0.5 MG TABLET PO PRN (20:30)
[2019-11-03] MEDS ORDERED: MAG HYDROX/AL HYDROX/SIMETH 30 ML UDC PO PRN (20:30)
[2019-11-03] MEDS: TEMAZEPAM 7.5 MG CAPSULE PO PRN (21:19)
--- NOTE | 2019-11-03 21:21 | NUR ---
GPS RN NOTES: PT C/O UNABLE TO SLEEP. PT STATED, " CAN I HAVE A SLEEPING PILL PLEASE? I CANT SLEEP RIGHT NOW." OFFERED RESTORIL 7.5 MG PO PRN ORDERED. PT AGREED. ADMINISTERED MEDICATION. PT TOLERATED WELL. CONTINUE TO MONITOR.
--- NOTE | 2019-11-03 21:45 | NUR ---
GPS RN NOTE, PATIENT NEEDS A MEDICATION RECONCILIATION. PAGED [facility] AND INFORMED WEI APODACA OF MY FINDINGS. WEI APODACA SAID HE WILL APPROVE PATIENT MEDICATION RECONCILIATION SOON POSSIBLE. WILL CONTINUE TO MONITOR THIS PATIENT WITH THE HELP OF STAFF.
[2019-11-03] MEDS ORDERED: BLOOD SUGAR DIAGNOSTIC 1 EACH STRIP IN ONE (22:00)
[2019-11-03] MEDS ORDERED: HYDROCODONE/APAP 10/325MG 1 EA TABLET PO PRN (23:30)
[2019-11-03 23:49] VITALS: BP 130/73
[2019-11-04] MEDS ORDERED: OMEPRAZOLE 20 MG CAPSULE.DR PO SCH (07:30)
--- NOTE | 2019-11-04 07:30 | NUR ---
INITIAL RECEIVED 59 Y/O MALE PATIENT IN BED ON A 5150 HOLD FOR DTO. THE 5150 WAS REVIEWED BY PM RN AND THE DOCUMENTATION IN THE 5150 HOLD APPEARS TO REFLECT THE PRESENTATION OF THE PATIENT. UPON FACE TO FACE ASSESSMENT PATIENT NOTED DEPRESSED, COOPERATIVE, QUIET, AND ISOLATIVE. PT HAS NO S/S OF PAIN. NO S/S OF RESP DISTRESS AND BREATHING EVEN AND UNLABORED. PT IS ALERT AND ORIENTED X3 -4 ON ROOM AIR. PT ORIENTED TO ROOM, FLOOR, AND STAFF WITH ALL QUESTIONS ANSWERED. PATIENT EDUCATED ON THE USEDF OF CALL RAMAN. PATIENT N4ED SIDE RAILS ARE UP X2 FOR SAFETY. PATIENTS BED LOCKED, LOW AND I WILL CONTINUE TO MONITOR THIS PATIENT Q15 MIN WITH THE HELP OF THE4 STAFF TO MAINTAIN SAFETY.
[2019-11-04] MEDS: PANTOPRAZOLE 40 MG TABLET.DR PO SCH (07:59)
[2019-11-04 08:00] VITALS: BP 134/86
[2019-11-04] MEDS: AMLODIPINE BESYLATE 10 MG TABLET PO SCH (08:54)
[2019-11-04] MEDS: NICOTINE PATCH (21MG) 21 MG PATCH.TD24 TD SCH (08:54)
[2019-11-04] MEDS: NAPROXEN 500 MG TABLET PO SCH ×2 (09:00→17:13)
[2019-11-04] MEDS ORDERED: MELOXICAM 7.5 MG TABLET PO SCH (09:00)
--- NOTE | 2019-11-04 09:22 | NUR ---
HELD AM NAPROXEN DOSE GAVE MOBCECILE THIS AM ALREADY
[2019-11-04] MEDS ORDERED: BICT1TAB PO (09:52)
[2019-11-04] MEDS ORDERED: BIKTARVY PO SCH (12:00)
[2019-11-04 16:00] VITALS: BP 156/97
--- NOTE | 2019-11-04 17:39 | NUR ---
closing pt compliant with all medications easily directable kept safe all shift no issued this shift. will given rn report to pm shift for continuity of care
[2019-11-04] MEDS: DIVALPROEX SODIUM 500 MG TABLET.DR PO SCH (19:28)
[2019-11-04 20:40] VITALS: BP 144/84
[2019-11-04] MEDS: ATORVASTATIN 10 MG TABLET PO SCH (21:18)
[2019-11-04] MEDS ORDERED: Medication Not On Formulary EA (Atorvastatin Calcium (Lipitor) 20 MG) PO SCH (22:00)
[2019-11-04] MEDS ORDERED: Medication Not On Formulary EA (Efavirenz/Emtricitab/Tenofovir (Atripla Tablet) 1 EACH) PO SCH (22:00)
[2019-11-04] MEDS ORDERED: QUETIAPINE FUMARATE 100 MG TABLET PO SCH (22:00)
[2019-11-05 07:27] LABS: BASOPHILS # (AUTO) 0.1 /CMM (0.0-0.2); BASOPHILS % (AUTO) 0.6 % (0.0-2.0); EOSINOPHILS % (AUTO) 5.9 % (0.0-6.0); HEMATOCRIT 44 % (39-51); HEMOGLOBIN 14.9 g/dL (13.5-17.5); LYMPHOCYTES # (AUTO) 1.6 /CMM (0.8-4.8); LYMPHOCYTES % (AUTO) 16.3 % (20.0-44.0); MEAN CORPUSCULAR HGB CONC 34 g/dl (31.0-36.0); MEAN CORPUSCULAR VOLUME 93 fL (80-96); MONOCYTES # (AUTO) 1.2 /CMM (0.1-1.30); MONOCYTES % (AUTO) 11.9 % (2.0-12.0); NEUTROPHILS # (AUTO) 6.5 /CMM (1.8-8.9); NEUTROPHILS % (AUTO) 65.3 % (43.0-81.0); PLATELET COUNT (AUTO) 222 /CMM (150-450); RED BLOOD CELL COUNT(AUTO) 4.74 MIL/uL (4.5-6.0); WHITE BLOOD COUNT (AUTO) 9.9 K/uL (4.3-11.0)
[2019-11-05 07:53] LABS: CALCIUM, SERUM 9.1 mg/dL (8.5-10.1); CREATININE 1.1 mg/dL (0.6-1.3); MAGNESIUM 1.9 mg/dL (1.8-2.4); PHOSPHORUS 2.8 mg/dL (2.5-4.9); POTASSIUM 4.1 mmol/L (3.5-5.1)
[2019-11-05 08:00] VITALS: BP 116/86
[2019-11-05] MEDS: PANTOPRAZOLE 40 MG TABLET.DR PO SCH (08:04)
[2019-11-05] MEDS: AMLODIPINE BESYLATE 10 MG TABLET PO SCH (08:04)
[2019-11-05] MEDS: NAPROXEN 500 MG TABLET PO SCH ×2 (08:04→16:45)
[2019-11-05] MEDS: DIVALPROEX SODIUM 250 MG TABLET.DR PO SCH (08:07)
[2019-11-05] MEDS: NICOTINE PATCH (21MG) 21 MG PATCH.TD24 TD SCH (08:08)
[2019-11-05 16:00] VITALS: BP 110/56
[2019-11-05] MEDS: OSELTAMIVIR PHOSPHATE 75 MG CAPSULE PO SCH (16:45)
[2019-11-05] MEDS: DIVALPROEX SODIUM 500 MG TABLET.DR PO SCH (16:45)
--- NOTE | 2019-11-05 17:16 | NUR ---
RN NOTES CULLET WASHER/JOSIE CAME TO SEE PT. WITH ORDERS TO START TAMIFLU PPX AND COLLECT SPECIMENS. URINE AND NASOPHARYNX SWAB FOR INFLUENZA TEST COLLECTED AND CALLED TO LAB AND SPOKE TO SARAH FOR SPECIMEN PICK-UP. PT AWARE STILL NEED SPUTUM SPECIMEN FOR CULTURE. WILL SEND SPECIMEN WHEN READY. WILL ENDORSE TO INCOMING NIGHT NURSE FOR FLORENTIN. PROTOCOL TO NOTIFY INFECTION CONTROL/MITCHELL TO HER EXTENSION DONE WELL. PRUDENCIO/RANDEE AWARE OF THE SITUATION.
[2019-11-05 20:44] VITALS: BP 138/90
[2019-11-05] MEDS: QUETIAPINE FUMARATE 100 MG TABLET PO SCH (21:03)
[2019-11-05] MEDS: ATORVASTATIN 10 MG TABLET PO SCH (21:04)
--- NOTE | 2019-11-06 04:57 | NUR ---
patient refused skin assessment.
[2019-11-06] MEDS: PANTOPRAZOLE 40 MG TABLET.DR PO SCH (07:30)
[2019-11-06 08:00] VITALS: BP 144/85
[2019-11-06] MEDS: DIVALPROEX SODIUM 250 MG TABLET.DR PO SCH (08:44)
[2019-11-06] MEDS: NAPROXEN 500 MG TABLET PO SCH ×2 (08:46→17:37)
[2019-11-06] MEDS: AMLODIPINE BESYLATE 10 MG TABLET PO SCH (08:46)
[2019-11-06] MEDS: NICOTINE PATCH (21MG) 21 MG PATCH.TD24 TD SCH (08:48)
[2019-11-06] MEDS: OSELTAMIVIR PHOSPHATE 75 MG CAPSULE PO SCH (08:49)
--- NOTE | 2019-11-06 11:53 | NUR ---
UR Note: SW called [facility] ([phone]) and left a voicemail with a clinical and stated that the pt is authorized through Wednesday but the hospital would like to request additional time.
--- NOTE | 2019-11-06 12:50 | NUR ---
Initial Discharge Plan: Pt currently resides at his home by himself located at [address] [place] [address]. Per pt, he would like to return to his home once he is stable. ADRIANNE will work with the pt and the MD regarding appropriate discharge planning. SW will form a safe and proper discharge.
--- NOTE | 2019-11-06 13:47 | NUR ---
Family Contact: SW called the pts father and left a message stating that the SW would like to speak to him.
[2019-11-06 16:00] VITALS: BP 114/71
[2019-11-06] MEDS: DIVALPROEX SODIUM 500 MG TABLET.DR PO SCH (17:39)
[2019-11-06] MEDS: BIKTARVY 50/200/25 PO SCH (18:46)
[2019-11-06 20:37] VITALS: BP 120/90
[2019-11-06] MEDS: ATORVASTATIN 10 MG TABLET PO SCH (21:08)
[2019-11-06] MEDS: QUETIAPINE FUMARATE 100 MG TABLET PO SCH (21:09)
[2019-11-07] MEDS: PANTOPRAZOLE 40 MG TABLET.DR PO SCH (07:30)
[2019-11-07 08:00] VITALS: BP 137/90
[2019-11-07] MEDS: DIVALPROEX SODIUM 250 MG TABLET.DR PO SCH (08:51)
[2019-11-07] MEDS: AMLODIPINE BESYLATE 10 MG TABLET PO SCH (08:51)
[2019-11-07] MEDS: NAPROXEN 500 MG TABLET PO SCH ×2 (08:52→17:00)
[2019-11-07] MEDS: BIKTARVY 50/200/25 PO SCH (08:53)
[2019-11-07] MEDS: NICOTINE PATCH (21MG) 21 MG PATCH.TD24 TD SCH (08:53)
--- NOTE | 2019-11-07 11:44 | NUR ---
UR Note: ADRIANNE called the pts case operator, Jc ([phone]), and conducted a clinical over the phone. Pts case operator stated that pt can remain on the unit and to call back when the pt is discharged.
[2019-11-07 16:00] VITALS: BP 128/86
[2019-11-07] MEDS: DIVALPROEX SODIUM 500 MG TABLET.DR PO SCH (17:00)
[2019-11-07 19:56] VITALS: BP 112/48
[2019-11-07] MEDS: ATORVASTATIN 10 MG TABLET PO SCH (21:45)
[2019-11-07] MEDS: QUETIAPINE FUMARATE 100 MG TABLET PO SCH (21:45)
[2019-11-07] MEDS: TEMAZEPAM 7.5 MG CAPSULE PO PRN (22:25)
[2019-11-08 08:00] VITALS: BP 134/97
[2019-11-08 08:16] VITALS: BP 134/97
[2019-11-08] MEDS: AMLODIPINE BESYLATE 10 MG TABLET PO SCH (08:16)
[2019-11-08] MEDS: DIVALPROEX SODIUM 250 MG TABLET.DR PO SCH (08:16)
[2019-11-08] MEDS: NICOTINE PATCH (21MG) 21 MG PATCH.TD24 TD SCH (08:16)
[2019-11-08] MEDS: PANTOPRAZOLE 40 MG TABLET.DR PO SCH (08:16)
[2019-11-08] MEDS: NAPROXEN 500 MG TABLET PO SCH (08:16)
[2019-11-08] MEDS: BIKTARVY 50/200/25 PO SCH (08:17)
--- NOTE | 2019-11-08 12:45 | NUR ---
GPS CONSERVATION OFFICER NOTE: PATIENT IS A 59 Y/O MALE DISCHARGED TO HOME . PATIENT IS IN STABLE CONDITION. VSS. NO ACUTE DISTRESS NOTED. NO COMPLAINTS. COMPLIANT WITH MEDICATION MANAGEMENT. COOPERATIVE WITH PLAN OF CARE. PSYCHIATRIC TREATMENT PLANS MET. MEDICAL TREATMENT PLANS DEFERRED FOR CONTINUAL MONITORING. DENIES SI/HI VAH AT THE TIME OF DISCHARGE. SKIN CHECK DONE AND INTACT . EDUCATED PATIENT ABOUT AFTERCARE WITH COPY PROVIDED. RETURNED PERSONAL BELONGINGS TO PATIENT. MEDICATIONS RECONCILED WITH ALONG WITH PSYCHIATRIC DISCHARGE ORDERS. DISCHARGE PAPERWORK SIGNED. FOR FOLLOW UP WITH PSYCHIATRIST AND ABSENCE MANAGEMENT CONSULTANT WITHIN 1 WEEK. PATIENT LEFT THE [facility] GPS VIA BUS TAP CARD PROVIDED.
--- NOTE | 2019-11-09 09:07 | NUR ---
Discharge Note: Pt was discharged on 11/09/19 at 1230 via Tap Card to his home located at [address] [place] [address], [place] [address]. Pt did not allow SW to inform his family of the discharge. Upon discharge, the pt appeared to be in a euthymic mood and presented with an irritated affect. Pt stated that he has an important court meeting that he needed to attend. Pt is alert and oriented x4. Pt appeared to be well groomed and appropriately dressed at the time of discharge. Pt denied both suicidal and homicidal ideation as well as auditory and visual hallucinations. Upon discharge, pt was provided with substance abuse referrals and smoking cessation referrals. Pt will continue to be under the care of his psychiatrist, Dr. King, located at [address] [facility], [place] [address]; and a fax of records was sent to: . Pt will also be under the care of his foam caster, [address] [facility] [id number], [place] [address]; ; and a fax of records was sent to: . Substance Referrals: [email or web address] Center [address] [place] [address] Tel. [facility] Primary Care [facility] [address] [place] Provider Mental Health Treatment Tele-dermatology HIV Services Telemedicine Services [place] [address] [place] [address] [facility] [address] [place] [address] Smoking Cessation: [employer] [email or web address] [employer] [phone] Patient was also referred to the Nicotine Anonymous meeting on [address] [facility] [address] on October at 7:00 PM.
--- NOTE | 2019-11-09 09:13 | NUR ---
UR Note: ADRIANNE called the pts counter caser, Jc ([phone]), and conducted a discharge clinical over the phone. Pts counter caser stated that he would like the medications to be faxed to [phone].
== END 2019-11-08 12:45 | disposition home or self-care (01) | DRG 885 ==
LOC: ER 15:34 → GPS 19:17
PROVIDERS: ADMIT Psychiatry & Neurology Psychosomatic Medicine; ATTEND Nurse Practitioner Acute Care
DX: F25.0 Schizoaffective disorder, bipolar type (principal); R45.851 Suicidal ideations; D63.8 Anemia in other chronic diseases classified elsewhere; K21.9 Gastro-esophageal reflux disease without esophagitis; G89.29 Other chronic pain; E78.5 Hyperlipidemia, unspecified; F12.10 Cannabis abuse, uncomplicated; F32.9 Major depressive disorder, single episode, unspecified; F29 Unspecified psychosis not due to a substance or known physiological condition; T78.40XA Allergy, unspecified, initial encounter; W19.XXXA Unspecified fall, initial encounter; Z79.899 Other long term (current) drug therapy; E78.00 Pure hypercholesterolemia, unspecified; D72.829 Elevated white blood cell count, unspecified; E66.01 Morbid (severe) obesity due to excess calories; F19.10 Other psychoactive substance abuse, uncomplicated; J32.9 Chronic sinusitis, unspecified; Z91.14 Patient's other noncompliance with medication regimen; M17.0 Bilateral primary osteoarthritis of knee; I10 Essential (primary) hypertension
CPT/HCPCS: 36415; 80048-TC; 80061-TC; 80076-TC; 80305; 81000-TC; 82962-TC; 83735-TC; 84100-TC; 85025-TC; 87081-TC; 87491; 87591; G0480

== ENCOUNTER 2020-09-27 23:59 | Emergency (ER) | payer MEDICARE, OTHER ==
[~2020-09-27] VITALS: Ht 172.7 cm; Wt 108.9 kg
[~2020-09-27 23:59] MED LIST changes: +AMLO-213 PO; -AMLO10TA7 PO; +BICT1TAB PO; -EFAV1TAB PO; -MELO-105 PO
--- NOTE | 2020-09-28 00:07 | NUR ---
PT AAOX4. AMBULATORY WITH STEADY GAIT. BIBSELF C/O SI WITH PLAN TO OD ON SEROQUEL. PT DENIES HI. PT PLACED IN BED, ON MONITOR, AND PULSE OX. PT PLACED IN HOSPITAL GOWN, LEONCIO PLACED IN LOCKER. SITTER AT BEDSIDE.
[2020-09-28 00:57] LABS: BASOPHILS # (AUTO) 0.1 /CMM (0.0-0.2); BASOPHILS % (AUTO) 1.1 % (0.0-2.0); HEMATOCRIT 45 % (39-51); HEMOGLOBIN 15.2 g/dL (13.5-17.5); LYMPHOCYTES # (AUTO) 1.7 /CMM (0.8-4.8); LYMPHOCYTES % (AUTO) 23.9 % (20.0-44.0); MEAN CORPUSCULAR HGB CONC 34 g/dl (31.0-36.0); MEAN CORPUSCULAR VOLUME 96 fL (80-96); MONOCYTES # (AUTO) 0.6 /CMM (0.1-1.30); MONOCYTES % (AUTO) 7.9 % (2.0-12.0); NEUTROPHILS # (AUTO) 4.3 /CMM (1.8-8.9); NEUTROPHILS % (AUTO) 61.1 % (43.0-81.0); PLATELET COUNT (AUTO) 262 /CMM (150-450); RED BLOOD CELL COUNT(AUTO) 4.74 MIL/uL (4.5-6.0)
[2020-09-28 00:59] LABS: ALANINE AMINOTRANSFERASE 23 U/L (12-78); ALBUMIN 3.8 g/dL (3.4-5.0); ALCOHOL, BLOOD < 3 mg/dL (0-0); ALKALINE PHOSPHATASE 118 U/L (46-116); ASPARTATE AMINOTRANSFERASE 13 U/L (15-37); BILIRUBIN,DIRECT 0.1 mg/dL (0.0-0.2); BILIRUBIN,TOTAL 0.3 mg/dL (0.2-1.0); CALCIUM, SERUM 9.2 mg/dL (8.5-10.1); CARBON DIOXIDE 27 mmol/L (21-32); CHLORIDE 106 mmol/L (98-107); GLUCOSE 127 mg/dL (74-106); POTASSIUM 3.8 mmol/L (3.5-5.1); SODIUM SERUM 143 mmol/L (136-145); TOTAL PROTEIN, SERUM 7.6 g/dL (6.4-8.2); UREA NITROGEN, BLOOD 15 mg/dL (7-18)
[2020-09-28 01:00] LABS: ACETAMINOPHEN 0 ug/ml (10-30)
[2020-09-28 01:19] LABS: BILIRUBIN,URINE NEGATIVE (NEGATIVE); BLOOD, URINE NEGATIVE Ery/uL (NEGATIVE); COLOR,URINE YELLOW (YELLOW); LEUKOCYTE ESTERASE ,URINE NEGATIVE (NEGATIVE); NITRITE, URINE NEGATIVE (NEGATIVE); PH,URINE 6.5 (5.0-8.0); PROTEIN,URINE NEGATIVE (NEGATIVE); UGLUCOSE NEGATIVE (NEGATIVE); UROBILINOGEN,URINE 0.2 EU/dL (0.2)
--- NOTE | 2020-09-28 02:21 | NUR ---
Facesheet and clinicals faxed to [facility].
--- NOTE | 2020-09-28 03:01 | NUR ---
PT ACCEPTED [facility] MD NUMBER [phone]
--- NOTE | 2020-09-28 03:24 | NUR ---
[facility] called for transport. Trip# [id number]. Pending ETA.
--- NOTE | 2020-09-28 04:01 | NUR ---
[facility] ETA @9312
--- NOTE | 2020-09-28 05:01 | NUR ---
PT ASLEEP, NO ACUTE DISTRESS NOTED, RESP EVEN AND UNLABORED. CALL LIGHT WITHIN REACH. WILL CONTINUE TO MONITOR PT CLOSELY. 1:1 SITTER REMAINS AT BEDSIDE.
--- NOTE | 2020-09-28 05:30 | NUR ---
REPORT GIVEN TO SHIRA ELIZONDO AT [facility] FOR FLORENTIN.
--- NOTE | 2020-09-28 07:19 | NUR ---
[facility] at bedside for transport to [facility]
[2020-09-28 07:34] VITALS: BP 140/81
== END 2020-09-28 07:34 | disposition home or self-care (01) ==
LOC: ER 09-28 00:03
DX: Z02.2 Encounter for examination for admission to residential institution (principal); R45.851 Suicidal ideations; F19.10 Other psychoactive substance abuse, uncomplicated; Z20.828 Contact with and (suspected) exposure to other viral communicable diseases; E78.00 Pure hypercholesterolemia, unspecified; M54.9 Dorsalgia, unspecified; Z91.013 Allergy to seafood; Z91.018 Allergy to other foods; G89.29 Other chronic pain; Z79.899 Other long term (current) drug therapy
CPT/HCPCS: 36415; 80048-TC; 80076-TC; 85025-TC; C9803; G0480

== ENCOUNTER 2021-01-19 04:31 | Emergency (ER) | payer MEDICARE, OTHER ==
[~2021-01-19] VITALS: Ht 172.7 cm; Wt 106.6 kg
[2021-01-19 05:12] LABS: BASOPHILS # (AUTO) 0.1 /CMM (0.0-0.2); BASOPHILS % (AUTO) 0.5 % (0.0-2.0); EOSINOPHILS % (AUTO) 0.3 % (0.0-6.0); HEMATOCRIT 47 % (39-51); HEMOGLOBIN 15.5 g/dL (13.5-17.5); LYMPHOCYTES # (AUTO) 1.6 /CMM (0.8-4.8); LYMPHOCYTES % (AUTO) 12.9 % (20.0-44.0); MEAN CORPUSCULAR HGB CONC 33 g/dl (31.0-36.0); MEAN CORPUSCULAR VOLUME 94 fL (80-96); MONOCYTES # (AUTO) 1.1 /CMM (0.1-1.30); MONOCYTES % (AUTO) 9.1 % (2.0-12.0); NEUTROPHILS # (AUTO) 9.7 /CMM (1.8-8.9); NEUTROPHILS % (AUTO) 77.2 % (43.0-81.0); PLATELET COUNT (AUTO) 256 /CMM (150-450); RED BLOOD CELL COUNT(AUTO) 5.02 MIL/uL (4.5-6.0); WHITE BLOOD COUNT (AUTO) 12.5 K/uL (4.3-11.0)
[2021-01-19 05:23] LABS: CALCIUM, SERUM 9.6 mg/dL (8.5-10.1); CARBON DIOXIDE 29 mmol/L (21-32); CHLORIDE 102 mmol/L (98-107); CREATININE 1.6 mg/dL (0.6-1.3); GLUCOSE 131 mg/dL (74-106); POTASSIUM 3.5 mmol/L (3.5-5.1); SODIUM SERUM 141 mmol/L (136-145); UREA NITROGEN, BLOOD 30 mg/dL (7-18)
[2021-01-19 05:27] LABS: BILIRUBIN,URINE NEGATIVE (NEGATIVE); COLOR,URINE YELLOW (YELLOW); LEUKOCYTE ESTERASE ,URINE NEGATIVE (NEGATIVE); NITRITE, URINE NEGATIVE (NEGATIVE); PROTEIN,URINE 100 mg/dl (NEGATIVE); UGLUCOSE NEGATIVE (NEGATIVE); UROBILINOGEN,URINE 0.2 EU/dL (0.2)
[2021-01-19 05:29] LABS: ALANINE AMINOTRANSFERASE 29 U/L (12-78); ALBUMIN 4.2 g/dL (3.4-5.0); ALKALINE PHOSPHATASE 142 U/L (46-116); ASPARTATE AMINOTRANSFERASE 25 U/L (15-37); BILIRUBIN,DIRECT 0.2 mg/dL (0.0-0.2); BILIRUBIN,TOTAL 0.9 mg/dL (0.2-1.0); TOTAL PROTEIN, SERUM 8.1 g/dL (6.4-8.2)
[2021-01-19 05:34] LABS: BACTERIA,URINE None seen /HPF (None Seen); MUCUS,URINE Many /LPF (None Seen); SQUAMOUS EPITHELIAL CELL,UR Moderate /HPF (None Seen); URINE AMORPHOUS URATE Few /HPF (None Seen); WBC,URINE 0-2 /HPF (0-3)
[2021-01-19 05:45] LABS: ACETAMINOPHEN 0 ug/ml (10-30)
[2021-01-19 05:46] LABS: ALCOHOL, BLOOD < 3 mg/dL (0-0)
--- NOTE | 2021-01-19 06:27 | NUR ---
FACESHEET AND CLINICALS FAXED TO [facility].
--- NOTE | 2021-01-19 07:34 | NUR ---
ASSESSED PT ON BED AWAKE AND ALERT, NOT IN RESPIRATORY DISTRESS, V/S STABLE, KEPT RESTED AND COMFORTABLE. [facility] FOR VOLUNTARY PSYCH ADMISSION.
--- NOTE | 2021-01-19 08:04 | NUR ---
FOOD TRAY PROVIDED.
--- NOTE | 2021-01-19 10:52 | NUR ---
[facility] [address] hunter call unit 1 for report [phone]
--- NOTE | 2021-01-19 10:59 | NUR ---
CALLED TRAN[facility]ORT [facility] FOR ETA OF [phone]
[2021-01-19 14:00] VITALS: BP 122/76
--- NOTE | 2021-01-19 14:05 | NUR ---
REPORT GIVEN TO ALINE ELIZONDO AT [facility], UNIT 1. PATIENT TRANSFERRED TO [facility].
== END 2021-01-19 14:07 ==
LOC: ER 04:33
DX: F32.9 Major depressive disorder, single episode, unspecified (principal); R45.851 Suicidal ideations; F19.10 Other psychoactive substance abuse, uncomplicated; I10 Essential (primary) hypertension; G89.29 Other chronic pain; M54.9 Dorsalgia, unspecified; S09.90XA Unspecified injury of head, initial encounter; X58.XXXA Exposure to other specified factors, initial encounter; Y92.89 Other specified places as the place of occurrence of the external cause; Z91.013 Allergy to seafood; Z91.018 Allergy to other foods; E78.00 Pure hypercholesterolemia, unspecified; Z79.899 Other long term (current) drug therapy; Z20.822 Contact with and (suspected) exposure to COVID-19
CPT/HCPCS: 36415; 80048-TC; 80076-TC; 81001; 85025-TC; C9803; G0480

== ENCOUNTER 2021-08-13 16:49 | Emergency (ER) | payer MEDICARE, OTHER ==
[~2021-08-13] VITALS: Ht 172.7 cm; Wt 108.9 kg
--- NOTE | 2021-08-13 17:10 | NUR ---
THE PATIENT BIBS FOR HAVING SI WITH A PLAN TO OD ON SEROQUEL. DENIES HI. WANT VOL ADMIT TO SO ELLIE. DENIES PAIN. IN ROOM AIR AND DENIES SOB. RESPIRATION REGULAR AND UNLABORED. WILL CONTINUE TO MONITOR THE PATIENT.
--- NOTE | 2021-08-13 17:15 | NUR ---
URINE COLLECTED AND SENT TO THE LAB
[2021-08-13 17:44] LABS: BASOPHILS # (AUTO) 0.1 K/uL (0.0-0.2); BASOPHILS % (AUTO) 0.8 % (0.0-2.0); EOSINOPHILS % (AUTO) 4.5 % (0.0-6.0); HEMATOCRIT 47 % (39-51); HEMOGLOBIN 15.8 g/dL (13.5-17.5); LYMPHOCYTES # (AUTO) 1.8 K/uL (0.8-4.8); LYMPHOCYTES % (AUTO) 25.2 % (20.0-44.0); MEAN CORPUSCULAR HGB CONC 33 g/dl (31.0-36.0); MEAN CORPUSCULAR VOLUME 96 fL (80-96); MONOCYTES # (AUTO) 0.5 K/uL (0.1-1.30); MONOCYTES % (AUTO) 7.3 % (2.0-12.0); NEUTROPHILS # (AUTO) 4.4 K/uL (1.8-8.9); NEUTROPHILS % (AUTO) 62.2 % (43.0-81.0); PLATELET COUNT (AUTO) 281 K/uL (150-450); RED BLOOD CELL COUNT(AUTO) 4.96 MIL/uL (4.5-6.0); WHITE BLOOD COUNT (AUTO) 7.2 K/uL (4.3-11.0)
[2021-08-13 17:51] LABS: CALCIUM, SERUM 9.8 mg/dL (8.5-10.1); CARBON DIOXIDE 31 mmol/L (21-32); CHLORIDE 103 mmol/L (98-107); CREATININE 1.6 mg/dL (0.6-1.3); GLUCOSE 158 mg/dL (74-106); POTASSIUM 3.4 mmol/L (3.5-5.1); SODIUM SERUM 141 mmol/L (136-145); UREA NITROGEN, BLOOD 28 mg/dL (7-18)
[2021-08-13 17:57] LABS: ALANINE AMINOTRANSFERASE 27 U/L (12-78); ALBUMIN 4.1 g/dL (3.4-5.0); ALKALINE PHOSPHATASE 141 U/L (46-116); ASPARTATE AMINOTRANSFERASE 13 U/L (15-37); BILIRUBIN,DIRECT 0.1 mg/dL (0.0-0.2); BILIRUBIN,TOTAL 0.3 mg/dL (0.2-1.0)
--- NOTE | 2021-08-13 17:57 | NUR ---
covid swab done and sent to the lab
[2021-08-13 17:58] LABS: ACETAMINOPHEN < 0 ug/ml (10-30); ALCOHOL, BLOOD < 3 mg/dL (0-0)
[2021-08-13 18:27] LABS: BILIRUBIN,URINE NEGATIVE (NEGATIVE); COLOR,URINE YELLOW (YELLOW); LEUKOCYTE ESTERASE ,URINE NEGATIVE (NEGATIVE); NITRITE, URINE NEGATIVE (NEGATIVE); PH,URINE 5.5 (5.0-8.0); PROTEIN,URINE NEGATIVE (NEGATIVE); UGLUCOSE NEGATIVE (NEGATIVE); UROBILINOGEN,URINE 0.2 EU/dL (0.2)
[2021-08-13] MEDS ORDERED: IV NS 0.9% 1,000 ML BAG IV ONE (18:30)
--- NOTE | 2021-08-13 19:15 | NUR ---
pt sitting quietly watching tv, attached to monitor and pox. VSS
--- NOTE | 2021-08-13 19:18 | NUR ---
FACESHEET AND CLINICALS FAXED TO [facility].
--- NOTE | 2021-08-13 21:00 | NUR ---
Patient is resting comfortably in bed with eyes closed. Easily aroused. VSS
[2021-08-13] MEDS ORDERED: HYDROMORPHONE 1 MG/1 ML DISP.SYRIN ONE (21:34)
--- NOTE | 2021-08-13 22:23 | NUR ---
PATIENT ALERT AND ORIENTED RESTING CMFORTABLY
--- NOTE | 2021-08-13 23:26 | NUR ---
pt watching tv, quietly, attached to monitor and pox, vss
--- NOTE | 2021-08-14 00:30 | NUR ---
pt sleeping, attached to monitor and pox. vss
--- NOTE | 2021-08-14 01:49 | NUR ---
PT ACCEPTED TO [facility] BY DR OSEI. # FOR REPORT [phone]
--- NOTE | 2021-08-14 01:56 | NUR ---
transport to [facility] arranged eta [phone]
--- NOTE | 2021-08-14 02:51 | NUR ---
pt walked to restroom, needs met
--- NOTE | 2021-08-14 03:00 | NUR ---
Gave report to bao Corral for amaury
--- NOTE | 2021-08-14 03:10 | NUR ---
gave report to ems
--- NOTE | 2021-08-14 03:16 | NUR ---
pt being transferred to [facility] via ambulance
[2021-08-14 03:17] VITALS: BP 133/81
== END 2021-08-14 03:16 ==
LOC: ER 16:52
DX: R45.851 Suicidal ideations (principal); F32.9 Major depressive disorder, single episode, unspecified; E78.00 Pure hypercholesterolemia, unspecified; G89.29 Other chronic pain; M54.9 Dorsalgia, unspecified; Z91.013 Allergy to seafood; Z91.018 Allergy to other foods; F19.10 Other psychoactive substance abuse, uncomplicated; F14.90 Cocaine use, unspecified, uncomplicated; Z59.01 Sheltered homelessness; I10 Essential (primary) hypertension; Z79.899 Other long term (current) drug therapy; Z20.822 Contact with and (suspected) exposure to COVID-19
CPT/HCPCS: 36415; 80048; 80076; 80143; 80307; 80320; 81003; 85025; 87426; 93005; 96360; 99285; J7030; C9803; G0480; J1170

== ENCOUNTER 2021-09-17 14:24 | Inpatient (IN) | payer OTHER ==
[~2021-09-17] VITALS: Ht 172.7 cm; Wt 114.3 kg
[2021-09-17] MEDS ORDERED: MAG HYDROX/AL HYDROX/SIMETH 30 ML UDC PO PRN (15:00)
[2021-09-17] MEDS ORDERED: IBUPROFEN 200 MG TABLET PO PRN (15:00)
[2021-09-17] MEDS ORDERED: LORAZEPAM 1 MG TABLET FOR AGITATION/ANXIETY PO PRN (15:00)
[2021-09-17] MEDS ORDERED: ACETAMINOPHEN ES 500 MG TABLET PO PRN (15:00)
[2021-09-17] MEDS ORDERED: MAGNESIUM HYDROXIDE 30 ML UDC PO PRN (15:00)
[2021-09-17 16:30] VITALS: BP 119/78
[2021-09-17] MEDS ORDERED: BENZTROPINE MESYLATE (1 MG) 1 MG TABLET PO PRN (16:30)
--- NOTE | 2021-09-17 18:08 | NUR ---
PT HAS BEEN ADMITTED ON A VOLUNTARY STATUS FOR CLINICAL TRIALS UNDER THE CARE OF DR LOTT. PT ESCORTED TO THE GPS UNIT AT 1625. PT ALERT AND ORIENTED X3. CLEAR SPEECH. CALM AND COOPERATIVE. NO S/S OF DISTRESS NOTED. PT IS CONTINENT AND AMBULATORY WITH GOOD STEADY GAIT. PT ORIENTED TO UNIT. PT DENIES SUICIDAL AND HOMICIDAL IDEATION AT THIS TIME. PT DENIES AUDITORY AND VISUAL HALLUCINATIONS AT THIS TIME. PT PRESENTS WITH INTACT SKIN. PT HAS A PROSTHETIC LEFT EYE. PT COMPLAINS OF CHRONIC BILATERAL KNEE PAIN. PICTURE TAKEN AND IN CHART. WILL MONITOR PATIENT FOR SAFETY, COMFORT AND BEHAVIOR Q15 MINUTES PER GPS PROTOCOL.
[2021-09-17 20:00] VITALS: BP 104/80
--- NOTE | 2021-09-17 20:00 | NUR ---
GPS-RN OPENING NOTES RECEIVED PATIENT IN BED RESTING COMFORTABLY. ALERT AND ORIENTED X3-4. NO ACUTE DISTRESS NOTED. PATIENT IS COOPERATIVE WITH CARE, FLAT AFFECT, PREOCCUPIED TO HIS OWN THOUGHTS, DENIES SI/HI AT THIS TIME. PT STATED, HE HEARS VOICES "THAT PEOPLE ARE TALKING ABOUT HIM". PATIENT HAS SMOKING PRIVILEGE PERMITTED PER UNIT SMOKING SCHEDULE. DENIES PAIN OR DISCOMFORT AT THIS TIME. SAFETY PRECAUTIONS IN PLACE. WILL CONTINUE TO MONITOR Q15MIN ROUNDS FOR SAFETY AND BEHAVIOR.
[2021-09-17] MEDS ORDERED: SEROQUEL 50 MG PO SCH (22:00)
[2021-09-18 08:00] VITALS: BP 120/86
[2021-09-18] MEDS: BENAZEPRIL 40 MG PO SCH (08:53)
[2021-09-18] MEDS: AMLODIPINE 10 MG PO SCH (08:53)
[2021-09-18] MEDS: HYDROCHLOROTHIAZIDE 25 MG PO SCH (08:53)
[2021-09-18] MEDS: ATORVASTATIN 10 MG PO SCH (08:54)
[2021-09-18] MEDS: OMEPRAZOLE 20 MG PO SCH (08:54)
--- NOTE | 2021-09-18 10:01 | NUR ---
Called the offoice of Dr. Elam and clarified about the diet and spoke to Sanjiv that pt. is Regular Diet.
--- NOTE | 2021-09-18 10:07 | NUR ---
Received pt. awake in bed, responsive to staffs, no distress and no agitation noted. Ate 100% for breakfast, compliant on meds. encouraged to verbalize feelings and motivated to attend group activity. Pt. went for smoking, needs attended. Called the office of Dr. Elam and clarified about the diet and spoke to Sanjiv and said that pt. is Regular Diet. Will continue to monitor for safety.
[2021-09-18] MEDS: IBUPROFEN 600 MG TABLET PO PRN (13:07)
[2021-09-18 16:00] VITALS: BP 130/88
[2021-09-18 20:00] VITALS: BP 136/90
--- NOTE | 2021-09-18 20:00 | NUR ---
GPS-RN NOTES: RECEIVED PATIENT IN BED RESTING COMFORTABLY. A/OX3. NO ACUTE DISTRESS NOTED. PATIENT IS COOPERATIVE WITH CARE, FLAT AFFECT, PREOCCUPIED TO HIS OWN THOUGHTS, DENIES SI/HI AT THIS TIME. PT REPORTS HAVING AUDITORY HALLUCINATIONS. PATIENT STATES, HE HEARS VOICES "THAT PEOPLE ARE TALKING ABOUT ME" AND HAVING VISUAL HALLUCINATION, "SHADOWS". REORIENTATION PROVIDED. PT IS ON SMOKING PRIVILEGE. SAFETY PRECAUTIONS IN PLACE. WILL CONTINUE TO MONITOR Q15MIN ROUNDS FOR SAFETY AND BEHAVIOR.
[2021-09-18] MEDS ORDERED: SEROQUEL 50 MG PO SCH (22:00)
[2021-09-19 08:00] VITALS: BP 125/94
[2021-09-19] MEDS: ATORVASTATIN 10 MG PO SCH (08:17)
[2021-09-19] MEDS: BENAZEPRIL 40 MG PO SCH (08:17)
[2021-09-19] MEDS: AMLODIPINE 10 MG PO SCH (08:17)
[2021-09-19] MEDS: OMEPRAZOLE 20 MG PO SCH (08:17)
[2021-09-19] MEDS: HYDROCHLOROTHIAZIDE 25 MG PO SCH (08:17)
[2021-09-19] MEDS: IBUPROFEN 600 MG TABLET PO PRN (10:01)
[2021-09-19 16:00] VITALS: BP 140/74
--- NOTE | 2021-09-19 19:30 | NUR ---
GPS-RN NOTES: PATIENT WATCHING TV IN DAY ROOM. A/OX3. NO ACUTE DISTRESS NOTED. PATIENT IS COOPERATIVE WITH CARE, FLAT AFFECT, PREOCCUPIED TO HIS OWN THOUGHTS, DENIES SI/HI AT THIS TIME. PT REPORTS HAVING AUDITORY HALLUCINATIONS. PATIENT STATES, HE HEARS VOICES "THAT PEOPLE ARE TALKING ABOUT ME" AND HAVING VISUAL HALLUCINATION, "SHADOWS". REORIENTATION PROVIDED. PT IS ON SMOKING PRIVILEGE. SAFETY PRECAUTIONS IN PLACE. WILL CONTINUE TO MONITOR Q15MIN ROUNDS FOR SAFETY AND BEHAVIOR
[2021-09-19 20:11] VITALS: BP 147/88
--- NOTE | 2021-09-19 21:21 | NUR ---
RN NOTES :PER PT. REQUEST AT 1003 HOME MED SEROQUEL 50 MG PO GIVEN, WILL CONTINUE TO MONITOR.
[2021-09-19] MEDS ORDERED: SEROQUEL 50 MG PO SCH (22:00)
[2021-09-19] MEDS: ZOLPIDEM TARTRATE 10 MG TABLET PO PRN (22:10)
--- NOTE | 2021-09-19 22:12 | NUR ---
RN NOTES : INSOMNIA PT. C/O UNABLE TO SLEEP AMBIEN 10 MG PO PRN, GIVEN PER PT. REQUEST, WILL CONTINUE TO MONITOR.
[2021-09-20 08:00] VITALS: BP 145/97
[2021-09-20] MEDS: ATORVASTATIN 10 MG PO SCH (08:39)
[2021-09-20] MEDS: AMLODIPINE 10 MG PO SCH (08:39)
[2021-09-20] MEDS: HYDROCHLOROTHIAZIDE 25 MG PO SCH (08:39)
[2021-09-20] MEDS: OMEPRAZOLE 20 MG PO SCH (08:39)
[2021-09-20] MEDS: BENAZEPRIL 40 MG PO SCH (08:39)
[2021-09-20 16:00] VITALS: BP 134/84
--- NOTE | 2021-09-20 19:30 | NUR ---
GPS-RN NOTES: PATIENT RESTING IN HIS ROOM. A/OX3. NO ACUTE DISTRESS NOTED. PATIENT IS COOPERATIVE WITH CARE, FLAT AFFECT, PREOCCUPIED TO HIS OWN THOUGHTS, DENIES SI/HI AT THIS TIME. PT REPORTS HAVING AUDITORY HALLUCINATIONS. PATIENT STATES, HE HEARS VOICES "THAT PEOPLE ARE TALKING ABOUT ME" AND HAVING VISUAL HALLUCINATION, "SHADOWS". REORIENTATION PROVIDED. PT IS ON SMOKING PRIVILEGE . SAFETY PRECAUTIONS IN PLACE. WILL CONTINUE TO MONITOR Q15MIN ROUNDS FOR SAFETY AND BEHAVIOR.
[2021-09-20 20:10] VITALS: BP 144/97
[2021-09-20] MEDS: SEROQUEL 50 MG PO SCH (21:50)
[2021-09-21 08:00] VITALS: BP 132/92
[2021-09-21] MEDS: OMEPRAZOLE 20 MG PO SCH (08:50)
[2021-09-21] MEDS: ATORVASTATIN 10 MG PO SCH (08:50)
[2021-09-21] MEDS: BENAZEPRIL 40 MG PO SCH (08:50)
[2021-09-21] MEDS: AMLODIPINE 10 MG PO SCH (08:50)
[2021-09-21] MEDS: HYDROCHLOROTHIAZIDE 25 MG PO SCH (08:50)
[2021-09-21] MEDS: IBUPROFEN 600 MG TABLET PO PRN (09:29)
[2021-09-21 16:00] VITALS: BP 143/89
[2021-09-21 19:50] VITALS: BP 147/93
--- NOTE | 2021-09-21 20:06 | NUR ---
GPS RN NOTES: RECEIVED PATIENT IN ROOM, AWAKE A/O X3. FLAT AFFECT, CALM AND COOPERATIVE, PASSIVE. PATIENT LEFT UNIT AT 1920 FOR A SMOKE AND RETURN 1940. NO S/S OF DISTRESS. RESPIRATION EVEN AND UNLABORED WITH EQUAL RISE AND FALL OF THE CHEST, ON ROOM AIR. BED IN LOWEST POSITION AND LOCKED, CALL RAMAN WITHIN REACH, OFFERED FLUID AND SNACKS TOLERATED. WILL CONTINUE TO MONITOR Q15 MIN FOR MOOD, SAFETY AND BEHAVIOR.
[2021-09-21] MEDS: SEROQUEL 50 MG PO SCH (21:47)
[2021-09-21] MEDS: ZOLPIDEM TARTRATE 10 MG TABLET PO PRN (22:19)
--- NOTE | 2021-09-21 22:21 | NUR ---
GPS RN NOTES: PATIENT REQUESTED FOR SLEEP MEDICATION. AMBIEN 10MG GIVEN PO AT 2219. WILL CONTINUE TO MONITOR.
[2021-09-22 08:00] VITALS: BP 142/94
--- NOTE | 2021-09-22 09:00 | NUR ---
Patient anxious at times ,isolative and withdrawn disorganized thoughts.patient stated "I hear voices to hurt myself".Encourage patient to verbalize feelings and thoughts redirect as needed .
[2021-09-22] MEDS: OMEPRAZOLE 20 MG PO SCH (09:11)
[2021-09-22] MEDS: HYDROCHLOROTHIAZIDE 25 MG PO SCH (09:11)
[2021-09-22] MEDS: ATORVASTATIN 10 MG PO SCH (09:11)
[2021-09-22] MEDS: BENAZEPRIL 40 MG PO SCH (09:11)
[2021-09-22] MEDS: AMLODIPINE 10 MG PO SCH (09:11)
--- NOTE | 2021-09-22 13:00 | NUR ---
Patient mood depressed ,flat affect ,labile disorganized thoughts.Stay in his room all day ,no plan for self care .Encourage patient to verbalize feelings and thoughts redirect as needed .
[2021-09-22 16:00] VITALS: BP 139/90
[2021-09-22 19:50] VITALS: BP 140/89
[2021-09-22] MEDS: ZOLPIDEM TARTRATE 10 MG TABLET PO PRN (20:48)
--- NOTE | 2021-09-22 20:48 | NUR ---
GPS RN NOTE PT REQUESTING FOR SLEEPING MED SO HE CAN GO TO SLEEP EARLY, AMBIEN 10 MG PO GIVEN. CONTINUE TO MONITOR HIM
--- NOTE | 2021-09-22 21:48 | NUR ---
GPS RN NOTE PT SITTING IN TV ROOM UNABLE TO SLEEP, REMINDED PT TO GO BACK TO ROOM SO HE CAN SLEEP.
--- NOTE | 2021-09-22 23:48 | NUR ---
GPS RN NOTE PT AWAKE AND ANXIOUS ATIVAN 1 MG PO GIVEN. CONTINUE TO MONITOR HIM
--- NOTE | 2021-09-23 00:48 | NUR ---
GPS RN NOTE PT ANXIETY CAME DOWN. AND FALLING ASLEEP, NO DISTRESS OR DISCOMFORT NOTED.
[2021-09-23 08:00] VITALS: BP 130/97
--- NOTE | 2021-09-23 09:00 | NUR ---
Patient isolative and withdrawn disorganized thoughts.patient still hear voices telling him to hurt himself Encourage patient to verbalize feelings and thoughts redirect as needed .
[2021-09-23] MEDS: AMLODIPINE 10 MG PO SCH (09:29)
[2021-09-23] MEDS: ATORVASTATIN 10 MG PO SCH (09:29)
[2021-09-23] MEDS: OMEPRAZOLE 20 MG PO SCH (09:29)
[2021-09-23] MEDS: HYDROCHLOROTHIAZIDE 25 MG PO SCH (09:29)
[2021-09-23] MEDS: BENAZEPRIL 40 MG PO SCH (09:29)
--- NOTE | 2021-09-23 13:00 | NUR ---
Patient remains isolative and withdrawn ,irritable and anxious disorganized thoughts.Encourage patient to verbalize feelings and thoughts redirect as needed .
[2021-09-23 16:06] VITALS: BP 129/91
[2021-09-23 20:00] VITALS: BP 156/91
--- NOTE | 2021-09-23 20:15 | NUR ---
GPS RN OPENING NOTE RECEIVED PATIENT IN ROOM, AWAKE A/O X3. FLAT AFFECT, CALM AND COOPERATIVE, PASSIVE, DENIES SI/HI AT THIS TIME. VISIBLE IN THE UNIT. NO S/S OF DISTRESS. VERBALIZES AVH AT TIMES. RESPIRATION EVEN AND UNLABORED WITH EQUAL RISE AND FALL OF THE CHEST, ON ROOM AIR. BED IN LOWEST POSITION AND LOCKED, CALL RAMAN WITHIN REACH, OFFERED FLUID AND SNACKS TOLERATED. WILL CONTINUE TO MONITOR Q15 MIN FOR MOOD, SAFETY AND BEHAVIOR.
--- NOTE | 2021-09-24 06:57 | NUR ---
RN NOTE PATIENT SLEPT 4 HOURS AT NIGHT. DAVID AND JOSE HELD AT NIGHT PER MD ORDERS.
[2021-09-24 08:00] VITALS: BP 140/89
[2021-09-24] MEDS: HYDROCHLOROTHIAZIDE 25 MG PO SCH (08:03)
[2021-09-24] MEDS: OMEPRAZOLE 20 MG PO SCH (08:03)
[2021-09-24] MEDS: AMLODIPINE 10 MG PO SCH (08:03)
[2021-09-24] MEDS: ATORVASTATIN 10 MG PO SCH (08:03)
[2021-09-24] MEDS: BENAZEPRIL 40 MG PO SCH (08:03)
--- NOTE | 2021-09-24 09:52 | NUR ---
RN-CO: PATIENT HAS AN APPROPRIATE AFFECT, COMPLIANT WITH MEDICATIONS, PLEASANT TO STAFF. PT STATED HE HAS AUDITORY HALLUCINATIONS TELLING HIM NEGATIVE THINGS ABOUT HIM AND SEEING " SHADOWS" FOR A LONG TIME AND HE GOT USED TO IT. STAFF MAINTAINED LOW LEVEL OF STIMULI AND ENCOURAGED HIM TO ATTEND GROUP ACTIVITIES.
[2021-09-24 16:00] VITALS: BP 143/92
--- NOTE | 2021-09-24 19:52 | NUR ---
GPS-RN NOTES: RECEIVED PATIENT IN BED RESTING COMFORTABLY. ALERT AND ORIENTED X3-4. NO ACUTE DISTRESS NOTED. PATIENT IS COOPERATIVE WITH CARE, FLAT AFFECT, PREOCCUPIED TO HIS OWN THOUGHTS, PATIENT REPORTS HAVING AUDITORY HALLUCINATION. PATIENT STATES, HE HEARS VOICES "THAT PEOPLE ARE TALKING ABOUT HIM" AND HAVING VISUAL HALLUCINATION SEEING "SHADOWS". NO VERBALIZATION OF THOUGHTS OF FEELINGS. REORIENTATION PROVIDED. PATIENT WENT OUT OF THE UNIT TO SMOKE AND CAME BACK AFTER [address]ES[address] SAFETY PRECAUTIONS IN PLACE. WILL CONTINUE TO MONITOR Q15MIN ROUNDS FOR SAFETY AND BEHAVIOR.
[2021-09-24 20:00] VITALS: BP 125/83
[2021-09-24] MEDS: LORAZEPAM 1 MG TABLET FOR AGITATION/ANXIETY PO PRN (21:27)
--- NOTE | 2021-09-24 21:27 | NUR ---
GPS-RN NOTES: ANXIETY PATIENT C/O FEELING ANXIOUS. PRN ATIVAN 1MG PO GIVEN ORDERED PER PATIENT'S REQUEST. WILL CONTINUE TO MONITOR.
[2021-09-24] MEDS: ZOLPIDEM TARTRATE 10 MG TABLET PO PRN (22:12)
--- NOTE | 2021-09-24 22:12 | NUR ---
GPS-RN NOTES: INSOMNIA PATIENT C/O INABILITY TO SLEEP. PRN AMBIEN 10MG PO GIVEN ORDERED PER PATIENT'S REQUEST. WILL CONTINUE TO MONITOR.
[2021-09-25 08:00] VITALS: BP 137/89
[2021-09-25] MEDS: HYDROCHLOROTHIAZIDE 25 MG PO SCH (08:06)
[2021-09-25] MEDS: OMEPRAZOLE 20 MG PO SCH (08:07)
[2021-09-25] MEDS: BENAZEPRIL 40 MG PO SCH (08:07)
[2021-09-25] MEDS: AMLODIPINE 10 MG PO SCH (08:07)
[2021-09-25] MEDS: ATORVASTATIN 10 MG PO SCH (08:07)
--- NOTE | 2021-09-25 09:33 | NUR ---
RN-CO:PATIENT HAS APPROPRIATE AFFECT, COMPLIANT WITH MEDICATIONS, PLEASANT TO STAFF. PT STATED HE HAS AH TELLING HIM NEGATIVE THINGS ABOUT HIM AND SEEING " SHADOWS" FOR A LONG TIME AND HE GOT USED TO IT.HE GOES OUT OF THE UNIT TO SMOKE FREQUENTLY, AND HE IS PLANNING TO HAVE A COVID VACCINE TODAY. I WILL NOTIFY DR LOTT. PATIENT DENIED PAIN AND DISCOMFORTS AT THIS TIME. I WILL CONTINUE TO MONITOR.
[2021-09-25] MEDS ORDERED: INVEST MED Kar XT OR PLACEBO 50/20 MG PO SCH (10:00)
--- NOTE | 2021-09-25 10:03 | NUR ---
RN-CO: NOTIFIED DR LOTT REGARDING THE DISCONTINUING OF INVESTIGATIONAL MEDICATION SINCE PHARMACY IS WAITING FOR HIS LAB RESULTS.
--- NOTE | 2021-09-25 11:15 | NUR ---
RN-CO: RN Distribution Specialist Jun will find out to administration if we can give 2nd dose of vaccine to the patient.
[2021-09-25] MEDS ORDERED: INFLUENZA VACCINE 2021-22 0.5 ML DISP.SYRIN IM ONE ×2 (13:00→15:30)
--- NOTE | 2021-09-25 13:53 | NUR ---
RN-CO: PER RN PORTABLE TRACK CREW CHIEF , OUR UNIT DOESN'T GIVE COVID VACCINE .
--- NOTE | 2021-09-25 15:21 | NUR ---
RN-CO: FLU VACCINE GIVEN ON RIGHT DELTOID AREA, TOLERATED WELL.
[2021-09-25 16:00] VITALS: BP 119/86
--- NOTE | 2021-09-25 16:41 | NUR ---
RN-CO: Patient was given referral to get his COVID IMMUNIZATION, to [email or web address].
--- NOTE | 2021-09-25 19:30 | NUR ---
GPS RN NOTE, RECEIVED PATIENT AWAKE AND IN BED, NO S/S OR COMPLAINTS OF PAIN AT THIS TIME. PATIENT IS DISPLAYING NO S/S OF APPARENT DISTRESS AT THIS TIME. PATIENT BREATHING IS UNLABORED WITH EQUAL RISE AND FALL OF THE CHEST. PATIENT IS ALERT AND ORIENTED X 3 ON ROOM AIR WITH A SPO2 97%. PATIENT IS COMPLIANT WITH MEDICATIONS, CALM, PLEASANT, POLITE, AND COOPERATIVE. PATIENT DENIES SUICIDAL AND HOMICIDAL IDEATIONS AT THIS TIME. PATIENT ASSISTED WITH TURNING AND REPOSITIONING Q2HR AND PRN FOR COMFORT AND CIRCULATION. PATIENT HAS NO NEEDS AT THIS TIME. PATIENT EDUCATED ON THE USE OF THE CALL RAMAN. PATIENT BED SIDE RAILS UP X 2 FOR SAFETY. PATIENT BED IS LOCKED, LOW, WITH BED ALARM ON. WILL CONTINUE TO MONITOR THIS PATIENT Q15 MINUTES WITH THE HELP OF STAFF TO MAINTAIN SAFETY.
[2021-09-25 20:00] VITALS: BP 127/82
[2021-09-25] MEDS: ZOLPIDEM TARTRATE 10 MG TABLET PO PRN (21:33)
--- NOTE | 2021-09-25 21:36 | NUR ---
GPS RN NOTE, PATIENT HAS A COMPLAINT OF NOT BEING ABLE TO SLEEP AND IS REQUESTING AMBIEN AT THIS TIME. PATIENT VITAL SIGNS ARE STABLE. GAVE AMBIEN 10MG PO HS PRN ORDERED. WILL REASSESS FOR INSOMNIA AND I WILL CONTINUE TO MONITOR THIS PATIENT WITH THE HELP OF STAFF.
[2021-09-25] MEDS: LORAZEPAM 1 MG TABLET FOR AGITATION/ANXIETY PO PRN (22:55)
--- NOTE | 2021-09-25 22:57 | NUR ---
GPS RN NOTE, PATIENT HAS A COMPLAINT OF FEELING ANXIOUS AND IS REQUESTING ATIVAN AT THIS TIME. PATIENT VITAL SIGNS ARE STABLE. GAVE ATIVAN 1MG PO Q6HR PRN ORDERED. WILL REASSESS FOR ANXIETY AND I WILL CONTINUE TO MONITOR THIS PATIENT WITH THE HELP OF STAFF.
[2021-09-26 08:00] VITALS: BP 118/94
[2021-09-26] MEDS: HYDROCHLOROTHIAZIDE 25 MG PO SCH (08:27)
[2021-09-26] MEDS: OMEPRAZOLE 20 MG PO SCH (08:27)
[2021-09-26] MEDS: ATORVASTATIN 10 MG PO SCH (08:27)
[2021-09-26] MEDS: BENAZEPRIL 40 MG PO SCH (08:28)
[2021-09-26] MEDS: AMLODIPINE 10 MG PO SCH (08:28)
--- NOTE | 2021-09-26 09:20 | NUR ---
RN Notes: Received pt. awake in bed, responsive to staffs, no distress and no agitation noted. Ate 100% for breakfast, compliant on meds. encouraged to verbalize feelings and motivated to attend group activity. Pt. went for smoking, needs attended and will continue to monitor for safety.
[2021-09-26 16:00] VITALS: BP 157/83
--- NOTE | 2021-09-26 19:30 | NUR ---
GPS-RN NOTES: PATIENT RESTING IN HIS ROOM, NO ACUTE DISTRESS NOTED. PATIENT IS COOPERATIVE WITH CARE, FLAT AFFECT, PREOCCUPIED TO HIS OWN THOUGHTS, DENIES SI/HI AT THIS TIME. PT REPORTS HAVING AUDITORY HALLUCINATIONS. PATIENT STATES, HE HEARS VOICES "THAT PEOPLE ARE TALKING ABOUT ME" AND HAVING VISUAL HALLUCINATION, "SHADOWS". REORIENTATION PROVIDED. PT IS ON SMOKING PRIVILEGE . SAFETY PRECAUTIONS IN PLACE. WILL CONTINUE TO MONITOR Q15MIN ROUNDS FOR SAFETY AND BEHAVIOR.
[2021-09-26 19:55] VITALS: BP 133/96
[2021-09-26] MEDS: LORAZEPAM 1 MG TABLET FOR AGITATION/ANXIETY PO PRN (21:08)
--- NOTE | 2021-09-26 21:08 | NUR ---
GPS-RN NOTES: ANXIETY PATIENT C/O FEELING ANXIOUS. PRN ATIVAN 1 MG PO GIVEN ORDERED PER PATIENT'S REQUEST. WILL CONTINUE TO MONITOR.
[2021-09-26] MEDS: ZOLPIDEM TARTRATE 10 MG TABLET PO PRN (23:06)
--- NOTE | 2021-09-26 23:06 | NUR ---
GPS-RN NOTES: INSOMNIA PATIENT C/O INABILITY TO SLEEP. PRN AMBIEN 10MG PO GIVEN ORDERED PER PATIENT'S REQUEST. WILL CONTINUE TO MONITOR.
[2021-09-27 08:00] VITALS: BP 136/93
[2021-09-27] MEDS: BENAZEPRIL 40 MG PO SCH (08:24)
[2021-09-27] MEDS: ATORVASTATIN 10 MG PO SCH (08:24)
[2021-09-27] MEDS: AMLODIPINE 10 MG PO SCH (08:24)
[2021-09-27] MEDS: HYDROCHLOROTHIAZIDE 25 MG PO SCH (08:24)
[2021-09-27] MEDS: OMEPRAZOLE 20 MG PO SCH (08:24)
[2021-09-27] MEDS ORDERED: INFLUENZA VACCINE 2021-22 0.5 ML DISP.SYRIN IM ONE (11:00)
[2021-09-27 16:00] VITALS: BP 116/90
[2021-09-27 20:18] VITALS: BP 133/76
[2021-09-27] MEDS: ZOLPIDEM TARTRATE 10 MG TABLET PO PRN (21:12)
[2021-09-27] MEDS: LORAZEPAM 1 MG TABLET FOR AGITATION/ANXIETY PO PRN (22:29)
[2021-09-28 08:00] VITALS: BP 136/91
[2021-09-28] MEDS: BENAZEPRIL 40 MG PO SCH (08:55)
[2021-09-28] MEDS: HYDROCHLOROTHIAZIDE 25 MG PO SCH (08:55)
[2021-09-28] MEDS: OMEPRAZOLE 20 MG PO SCH (08:55)
[2021-09-28] MEDS: AMLODIPINE 10 MG PO SCH (08:55)
[2021-09-28] MEDS: ATORVASTATIN 10 MG PO SCH (08:55)
[2021-09-28] MEDS: NEOMY SULF/BACITRAC ZN/POLY 15 GM TUBE TP PRN (13:23)
--- NOTE | 2021-09-28 13:27 | NUR ---
RN-CO:PATIENT IS EXICITED TODAY BECAUSE IT IS BIRTHDAY. HE WAS VISITED WITH 4 RELATIVES WHOM HE ENTERTAINED IN THE HOSPITAL LOBBY. HE C/O OF 2/10 PAIN ID THE BACK AREA DUET TO INSECT BITE LIKE INFECTION. CLEANSE THE AREA WITH NORMAL SALINE AND APPLIED NEOSPORIN.HE STILL TOLD ME THAT HE HEARS "VOICES" TELLING NEGATIVE THINGS ABOUT HIM BUT HE STATED " I LEARNED TO DEAL WITH IT. I ENCOURAGED HIM TO ASK FOR HELP AND VENTILATE FEELINGS.
[2021-09-28 16:00] VITALS: BP 128/69
[2021-09-28 19:27] VITALS: BP 141/75
--- NOTE | 2021-09-28 19:55 | NUR ---
GPS-RN NOTES: RECEIVED PATIENT IN BED RESTING COMFORTABLY. A/OX3. NO ACUTE DISTRESS NOTED. PATIENT IS COOPERATIVE WITH CARE, PREOCCUPIED TO HIS OWN THOUGHTS, MED COMPLIANT. PATIENT REPORTS HAVING AUDITORY HALLUCINATIONS. HE HEARS VOICES TELLING HIM " NEGATIVE THINGS ABOUT HIM". NO COMMAND HALLUCINATION NOTED. AND PT HAVING VISUAL HALLUCINATION SEEING "SHADOWS". NO VERBALIZATION OF THOUGHTS OR FEELINGS. REORIENTATION PROVIDED. PT IS ON SMOKING PRIVILEGE. SAFETY PRECAUTIONS MAINTAINED. WILL CONTINUE TO MONITOR Q15MIN ROUNDS FOR SAFETY AND BEHAVIOR.
[2021-09-28] MEDS: LORAZEPAM 1 MG TABLET FOR AGITATION/ANXIETY PO PRN (21:56)
--- NOTE | 2021-09-28 21:56 | NUR ---
GPS-RN NOTES: ANXIETY PATIENT C/O FEELING ANXIOUS. PRN ATIVAN 1MG PO GIVEN ORDERED PER PATIENT'S REQUEST. WILL CONTINUE TO MONITOR.
[2021-09-28] MEDS: ZOLPIDEM TARTRATE 10 MG TABLET PO PRN (22:41)
--- NOTE | 2021-09-28 22:41 | NUR ---
GPS-RN NOTES: INSOMNIA PATIENT C/O INABILITY TO SLEEP. PRN AMBIEN 10MG PO GIVEN ORDERED PER PATIENT'S REQUEST. WILL CONTINUE TO MONITOR.
[2021-09-29 08:00] VITALS: BP 146/79
[2021-09-29] MEDS: BENAZEPRIL 40 MG PO SCH (08:45)
[2021-09-29] MEDS: HYDROCHLOROTHIAZIDE 25 MG PO SCH (08:45)
[2021-09-29] MEDS: OMEPRAZOLE 20 MG PO SCH (08:45)
[2021-09-29] MEDS: AMLODIPINE 10 MG PO SCH (08:45)
[2021-09-29] MEDS: ATORVASTATIN 10 MG PO SCH (08:45)
--- NOTE | 2021-09-29 09:00 | NUR ---
Patient alert ,verbally responsive ,oriented x3 ,mood depressed ,isolative and withdraw .Patient hear voices to hurt himself.Encourage patient to verbalize feelings and thoughts redirect as needed .
--- NOTE | 2021-09-29 13:00 | NUR ---
Patient remains isolative and withdrawn,labile ,irritable and anxious ,disorganized thoughts.Encourage patient to verbalize feelings and thoughts redirect as needed .
[2021-09-29 16:00] VITALS: BP 123/87
--- NOTE | 2021-09-29 19:55 | NUR ---
RN NOTES: RECEIVED PATIENT IN THE DINING ROOM WATCHING TV. A/OX3. NO ACUTE DISTRESS NOTED. PATIENT IS COOPERATIVE WITH CARE, WITH MINIMAL INTERACTION WITH PEERS, MED COMPLIANT. PATIENT REPORTS HAVING AUDITORY HALLUCINATIONS. HE HEARS VOICES TELLING HIM "NEGATIVE THINGS ABOUT HIM". NO COMMAND HALLUCINATION NOTED. AND PATIENT HAVING VISUAL HALLUCINATION SEEING "SHADOWS". NO VERBALIZATION OF THOUGHTS OR FEELINGS. REORIENTATION PROVIDED. PT IS ON SMOKING PRIVILEGE. SAFETY PRECAUTIONS MAINTAINED. WILL CONTINUE TO MONITOR Q15MIN ROUNDS FOR SAFETY AND BEHAVIOR.
[2021-09-29 19:59] VITALS: BP 153/81
[2021-09-29] MEDS: QUETIAPINE FUMARATE 100 MG TABLET PO SCH (21:43)
[2021-09-29] MEDS ORDERED: QUETIAPINE FUMARATE 100 MG TABLET PO SCH (22:00)
[2021-09-29] MEDS: ZOLPIDEM TARTRATE 10 MG TABLET PO PRN (22:38)
--- NOTE | 2021-09-29 22:38 | NUR ---
GPS-RN NOTES: INSOMNIA PATIENT C/O INABILITY TO SLEEP. PRN AMBIEN 10MG PO GIVEN ORDERED PER PATIENT'S REQUEST. WILL CONTINUE TO MONITOR.
[2021-09-30 08:00] VITALS: BP 139/97
[2021-09-30] MEDS: NEOMY SULF/BACITRAC ZN/POLY 15 GM TUBE TP PRN (08:38)
[2021-09-30] MEDS: ATORVASTATIN 10 MG PO SCH (08:38)
[2021-09-30] MEDS: HYDROCHLOROTHIAZIDE 25 MG PO SCH (08:39)
[2021-09-30] MEDS: OMEPRAZOLE 20 MG PO SCH (08:39)
[2021-09-30] MEDS: BENAZEPRIL 40 MG PO SCH (08:39)
[2021-09-30] MEDS: AMLODIPINE 10 MG PO SCH (08:39)
--- NOTE | 2021-09-30 09:00 | NUR ---
Patient alert ,verbally responsive ,oriented x3 ,flat affect ,mood depressed ,isolative and withdraw .Encourage patient to verbalize feelings and thoughts redirect as needed .
--- NOTE | 2021-09-30 10:49 | NUR ---
WOUND CARE CONSULT: PT OFF UNIT AT THIS TIME. WILL SEE PRN.
[2021-09-30] MEDS: IBUPROFEN 600 MG TABLET PO PRN (11:01)
--- NOTE | 2021-09-30 13:00 | NUR ---
Patient alert ,verbally responsive ,oriented x3 ,flat affect ,mood depressed ,isolative and withdraw .Encourage patient to verbalize feelings and thoughts redirect as needed .
[2021-09-30 15:50] VITALS: BP 112/67
[2021-09-30 20:00] VITALS: BP 135/76
[2021-09-30] MEDS: QUETIAPINE FUMARATE 100 MG TABLET PO SCH ×2 (22:00→22:05)
--- NOTE | 2021-09-30 22:08 | NUR ---
RN NOTE: VERIFIED ORDER WITH MD PATIENT HAD TWO DIFFERENT ORDERS OF SEROQUEL AND WAS SCHEDULED TO TAKE SEROQUEL 200 MG AND 100 MG AT 2200 TONIGHT. PER PATIENT, MD INFORMED HIM TO TAKE ONLY 200 MG OF SEROQUEL. CALLED DR. LOTT TO VERIFY THE ORDER AND PER MD ONLY TO GIVE SEROQUEL 200 MG TONIGHT AND 300 MG TOMORROW NIGHT. MD ORDERED TO DISCONTINUE SEROQUEL 100 MG TONIGHT. ORDER NOTED AND CARRIED OUT.
[2021-09-30] MEDS: ZOLPIDEM TARTRATE 10 MG TABLET PO PRN (23:15)
--- NOTE | 2021-09-30 23:18 | NUR ---
GPS RN NOTE: INSOMNIA PATIENT C/O INABILITY TO SLEEP AND WANTED TO TAKE SLEEPING MEDICINE. PRN AMBIEN 10 MG 1 TAB PO ADMINISTERED ORDERED.
--- NOTE | 2021-10-01 04:56 | NUR ---
RN NOTE PATIENT WAS COOPERATIVE THROUGH OUT THE SHIFT, MED COMPLAINT, HAD PLENTY OF SNACKS, AMBULATORY/STEADY, SLEEPING AT THIS TIME. WILL CONTINUE TO MONITOR FOR ANY CHANGE OF CONDITION.
[2021-10-01 08:00] VITALS: BP 154/101
[2021-10-01] MEDS: AMLODIPINE 10 MG PO SCH (09:39)
[2021-10-01] MEDS: HYDROCHLOROTHIAZIDE 25 MG PO SCH (09:39)
[2021-10-01] MEDS: ATORVASTATIN 10 MG PO SCH (09:39)
[2021-10-01] MEDS: BENAZEPRIL 40 MG PO SCH (09:39)
[2021-10-01] MEDS: OMEPRAZOLE 20 MG PO SCH (09:39)
--- NOTE | 2021-10-01 12:16 | NUR ---
RN-CO: Patient is compliant to care, has an appropriate affect. Denied feeling of depression but stated he has AH and VH. Denied pain and discomforts. Encouraged to ventilate feelings.
[2021-10-01 16:00] VITALS: BP 135/76
--- NOTE | 2021-10-01 19:14 | NUR ---
RN NOTES Patient receievd in bed alert ,verbally responsive ,oriented x3 ,flat affect ,mood depressed ,isolative and withdraw .Encourage patient to verbalize feelings and thoughts redirect as needed will continue to monitor with help of nursing staff.
[2021-10-01 19:58] VITALS: BP 157/91
[2021-10-01] MEDS: QUETIAPINE FUMARATE 100 MG TABLET PO SCH (21:24)
[2021-10-01] MEDS ORDERED: QUETIAPINE FUMARATE 100 MG TABLET PO SCH (22:00)
--- NOTE | 2021-10-02 08:48 | NUR ---
Dr. Elam gave an order to D/C pt. today and to follow up with psych and medical doctors. Pt. without distress, denies suicidal and homicidal.
[2021-10-02 09:01] VITALS: BP 126/77
[2021-10-02] MEDS: OMEPRAZOLE 20 MG PO SCH (09:03)
[2021-10-02] MEDS: BENAZEPRIL 40 MG PO SCH (09:04)
[2021-10-02] MEDS: ATORVASTATIN 10 MG PO SCH (09:04)
[2021-10-02] MEDS: HYDROCHLOROTHIAZIDE 25 MG PO SCH (09:04)
[2021-10-02] MEDS: AMLODIPINE 10 MG PO SCH (09:04)
[2021-10-02] MEDS: NEOMY SULF/BACITRAC ZN/POLY 15 GM TUBE TP PRN (09:06)
--- NOTE | 2021-10-02 11:16 | NUR ---
RN-NOTES PATIENT HAD A DISCHARGE ORDER FROM DR. LOTT ( PSYCHIATRIST). PATIENT A/O X4 AMBULATORY STEADY GAIT. PATIENT DID NOT VERBALIZE SI/HI,DENIES VISUAL/AUDITORY HALLUCINATIONS AT THE TIME OF DISCHARGE. INSTRUCTED PATIENT TO FOLLOW UP WITH PCP AND PSYCHIATRIST IN A WEEK OR NEEDED, AND GO TO THE NEAREST EMERGENCY ROOM INCASE OF EMERGENCY. PATIENT REFUSED SKIN ASSESSMENT PRIOR TO DISCHARGE. STATED" MY SKIN IS FINE,NO PROBLEM AT ALL TIME". EXPLAINED HOSPITAL POLICIES BUT PATIENT STILL REFUSED. PATIENT WAS ACCOMPANIED BY ONE PASSENGER SERVICE REPRESENTATIVE TO THE LOBBY FOR SAFETY. PATIENT LEFT THE UNIT IN STABLE CONDITION A/O X4,NO ACUTE DISTRESS NOTED WITH ALL BELONGINGS. Addendum: 10/02/21 at 1129 by ROSETTA MCRAE RN SPOKE TO MADISYN ( DR. LOTT OFFICE STAFF) AND THAT STATED THAT IT'S OK THE PATIENT CAN WALK TO DR. LOTT OFFICE BY HIMSELF.
[2021-10-15] MEDS ORDERED: LORAZEPAM 1 MG TABLET FOR AGITATION/ANXIETY PO PRN (13:00)
[2021-10-15] MEDS ORDERED: ZOLPIDEM TARTRATE 10 MG TABLET PO PRN (13:00)
[2021-10-27] MEDS ORDERED: LORAZEPAM 1 MG TABLET FOR AGITATION/ANXIETY PO PRN (13:00)
[2021-10-27] MEDS ORDERED: ZOLPIDEM TARTRATE 10 MG TABLET PO PRN (13:00)
== END 2021-10-02 11:15 | disposition home or self-care (01) | DRG 951 ==
LOC: GPS 14:34
PROVIDERS: ADMIT Psychiatry & Neurology Psychiatry; ATTEND Psychiatry & Neurology Psychiatry
DX: Z00.3 Encounter for examination for adolescent development state (principal); F20.0 Paranoid schizophrenia; G47.00 Insomnia, unspecified; I10 Essential (primary) hypertension; M19.90 Unspecified osteoarthritis, unspecified site; F39 Unspecified mood [affective] disorder; Z82.49 Family history of ischemic heart disease and other diseases of the circulatory system
CPT/HCPCS: 87081-TC; Q2036

== ENCOUNTER 2022-04-15 19:50 | Emergency (ER) | payer MEDICARE, OTHER ==
[~2022-04-15] VITALS: Ht 170.2 cm; Wt 97.5 kg
--- NOTE | 2022-04-15 20:29 | NUR ---
PATIENT BIBSELF C/O +SI NO PLAN, WANT VOL PSYCH ADMIT. PATIENT IS A/O X 4, RR EVEN AND UNLABORED NO SOB NOTED, VSS. PATIENT TAKEN TO ER BED 18, WITH SECURITY AND WANDED, BELONGING PLACED IN LOCKER, PT IN HOSPITAL GOWN. WILL CONTINUE TO MONITOR.
--- NOTE | 2022-04-15 20:30 | NUR ---
LAB AT BEDSIDE
--- NOTE | 2022-04-15 20:40 | NUR ---
COVID SWAB COLLECTED SENT TO LAB
--- NOTE | 2022-04-15 20:41 | NUR ---
URINE COLLECTED SENT TO LAB
[2022-04-15 20:49] LABS: BASOPHILS % (AUTO) 0.4 % (0.0-2.0); EOSINOPHILS % (AUTO) 1.1 % (0.0-6.0); HEMATOCRIT 46 % (39-51); HEMOGLOBIN 15.5 g/dL (13.5-17.5); LYMPHOCYTES # (AUTO) 1.6 K/uL (0.8-4.8); LYMPHOCYTES % (AUTO) 18.9 % (20.0-44.0); MEAN CORPUSCULAR HGB CONC 34 g/dl (31.0-36.0); MEAN CORPUSCULAR VOLUME 94 fL (80-96); MONOCYTES # (AUTO) 0.7 K/uL (0.1-1.30); MONOCYTES % (AUTO) 7.9 % (2.0-12.0); NEUTROPHILS # (AUTO) 6.1 K/uL (1.8-8.9); NEUTROPHILS % (AUTO) 71.7 % (43.0-81.0); PLATELET COUNT (AUTO) 209 K/uL (150-450); WHITE BLOOD COUNT (AUTO) 8.5 K/uL (4.3-11.0)
[2022-04-15 21:18] LABS: CALCIUM, SERUM 9.4 mg/dL (8.5-10.1); CARBON DIOXIDE 31 mmol/L (21-32); CHLORIDE 105 mmol/L (98-107); CREATININE 1.2 mg/dL (0.6-1.3); GLUCOSE 103 mg/dL (74-106); POTASSIUM 3.6 mmol/L (3.5-5.1); SODIUM SERUM 142 mmol/L (136-145); UREA NITROGEN, BLOOD 23 mg/dL (7-18)
[2022-04-15 21:24] LABS: ALANINE AMINOTRANSFERASE 33 U/L (12-78); ALKALINE PHOSPHATASE 116 U/L (46-116); ASPARTATE AMINOTRANSFERASE 13 U/L (15-37); BILIRUBIN,DIRECT 0.1 mg/dL (0.0-0.2); BILIRUBIN,TOTAL 0.5 mg/dL (0.2-1.0); TOTAL PROTEIN, SERUM 7.5 g/dL (6.4-8.2)
[2022-04-15 21:25] LABS: ACETAMINOPHEN < 0 ug/ml (10-30); ALCOHOL, BLOOD < 3 mg/dL (0-0)
[2022-04-15 21:52] LABS: BILIRUBIN,URINE NEGATIVE (NEGATIVE); LEUKOCYTE ESTERASE ,URINE NEGATIVE (NEGATIVE); NITRITE, URINE NEGATIVE (NEGATIVE); PROTEIN,URINE NEGATIVE (NEGATIVE); UGLUCOSE NEGATIVE (NEGATIVE); UROBILINOGEN,URINE 0.2 EU/dL (0.2)
[2022-04-15 21:53] LABS: COLOR,URINE YELLOW (YELLOW)
[2022-04-15 22:22] LABS: BACTERIA,URINE Rare /HPF (None Seen); RBC,URINE 0-2 /HPF (0-2); SQUAMOUS EPITHELIAL CELL,UR Few /HPF (None Seen)
--- NOTE | 2022-04-16 01:47 | NUR ---
CLINICALS FAXED TO [facility]
--- NOTE | 2022-04-16 05:56 | NUR ---
PER FEBRUARY OF [facility], STILL AWAITING FOR AVAILABLE BED.
--- NOTE | 2022-04-16 12:02 | NUR ---
REFAXED CLINICALS TO [facility].
[2022-04-16 13:11] VITALS: BP 118/77
--- NOTE | 2022-04-16 13:12 | NUR ---
Patient left in stable condition accompanied by transport going to [facility]. All patient's belongings sent with patient.
== END 2022-04-16 13:12 ==
LOC: ER 20:12
DX: R45.851 Suicidal ideations (principal); F14.10 Cocaine abuse, uncomplicated; F32.A Depression, unspecified; Z20.822 Contact with and (suspected) exposure to COVID-19; R82.81 Pyuria; I10 Essential (primary) hypertension; G89.29 Other chronic pain; M54.9 Dorsalgia, unspecified; Z91.018 Allergy to other foods; E78.00 Pure hypercholesterolemia, unspecified; Z79.899 Other long term (current) drug therapy
CPT/HCPCS: 36415; 80048-TC; 80076-TC; 81001; 82962-TC; 85025-TC; 87086-TC; C9803; G0480

== ENCOUNTER 2022-05-25 08:53 | Emergency (ER) | payer MEDICARE, OTHER ==
[~2022-05-25] VITALS: Ht 172.7 cm; Wt 104.3 kg
--- NOTE | 2022-05-25 08:53 | NUR ---
BIBS WITH SUICIDAL THOUGHTS OF OVERDOSING ON SEROQUEL AND SEEKING [facility] ADM[facility]. SECURITY CALLED FOR WANDING, PT PLACED IN GOWL, BLONGING COLLECTED, LABELLED AND PLACED IN STORAGE. SAFETY MEASURES APPLIED.
--- NOTE | 2022-05-25 08:55 | NUR ---
COVID AND URINE COLLECTED AND SENT
--- NOTE | 2022-05-25 09:30 | NUR ---
PHLEB TECH AT BEDSIDE FOR BLOOD DRAW.
[2022-05-25 09:58] LABS: BASOPHILS % (AUTO) 0.5 % (0.0-2.0); EOSINOPHILS % (AUTO) 3.8 % (0.0-6.0); HEMATOCRIT 43 % (39-51); HEMOGLOBIN 14.5 g/dL (13.5-17.5); LYMPHOCYTES # (AUTO) 1.1 K/uL (0.8-4.8); LYMPHOCYTES % (AUTO) 18.9 % (20.0-44.0); MEAN CORPUSCULAR HGB CONC 34 g/dl (31.0-36.0); MEAN CORPUSCULAR VOLUME 93 fL (80-96); MONOCYTES # (AUTO) 0.4 K/uL (0.1-1.30); NEUTROPHILS % (AUTO) 69.8 % (43.0-81.0); PLATELET COUNT (AUTO) 253 K/uL (150-450); RED BLOOD CELL COUNT(AUTO) 4.65 MIL/uL (4.5-6.0); WHITE BLOOD COUNT (AUTO) 5.7 K/uL (4.3-11.0)
[2022-05-25 10:06] LABS: BILIRUBIN,URINE NEGATIVE (NEGATIVE); COLOR,URINE YELLOW (YELLOW); LEUKOCYTE ESTERASE ,URINE NEGATIVE (NEGATIVE); NITRITE, URINE NEGATIVE (NEGATIVE); PROTEIN,URINE NEGATIVE (NEGATIVE); UGLUCOSE NEGATIVE (NEGATIVE)
[2022-05-25 10:08] LABS: CALCIUM, SERUM 9.3 mg/dL (8.5-10.1); CARBON DIOXIDE 31 mmol/L (21-32); CHLORIDE 106 mmol/L (98-107); CREATININE 1.2 mg/dL (0.6-1.3); GLUCOSE 86 mg/dL (74-106); SODIUM SERUM 142 mmol/L (136-145); UREA NITROGEN, BLOOD 16 mg/dL (7-18)
[2022-05-25 10:13] LABS: ALANINE AMINOTRANSFERASE 33 U/L (12-78); ALBUMIN 4.1 g/dL (3.4-5.0); ALKALINE PHOSPHATASE 140 U/L (46-116); ASPARTATE AMINOTRANSFERASE 17 U/L (15-37); BILIRUBIN,DIRECT 0.1 mg/dL (0.0-0.2); BILIRUBIN,TOTAL 0.5 mg/dL (0.2-1.0); TOTAL PROTEIN, SERUM 7.9 g/dL (6.4-8.2)
[2022-05-25 10:14] LABS: ACETAMINOPHEN 0 ug/ml (10-30); ALCOHOL, BLOOD < 3 mg/dL (0-0)
[2022-05-25 10:18] LABS: BACTERIA,URINE None seen /HPF (None Seen); RBC,URINE 0-2 /HPF (0-2); SQUAMOUS EPITHELIAL CELL,UR Rare /HPF (None Seen)
--- NOTE | 2022-05-25 11:06 | NUR ---
FA[facility]ED CLINICALS TO [facility]
[2022-05-25] MEDS ORDERED: POTASSIUM CHLORIDE 20 MEQ TAB.PRT.SR PO ONE ×2 (12:30→12:47)
--- NOTE | 2022-05-25 21:43 | NUR ---
ART FROM [facility] CALLED. HE DOESN'T NEED A NEW EKG. HE WILL WAIT FOR THE LATEST S.K LEVEL TO BE FAX TO THEM.
--- NOTE | 2022-05-25 22:34 | NUR ---
TRANSFER INFO PT ACCEPTED AT [facility] UNDER DR. OSEI NUMBER FOR REPORT:
--- NOTE | 2022-05-25 22:37 | NUR ---
[facility] ETA 90 MINUTES- 2 HOURS.
--- NOTE | 2022-05-25 23:17 | NUR ---
REPORT GIVEN TO NURSE SHIRA
[2022-05-26] VITALS: BP 133/77
--- NOTE | 2022-05-26 00:33 | NUR ---
[facility]
== END 2022-05-26 00:43 ==
LOC: ER 09:00
DX: R45.851 Suicidal ideations (principal); Z20.822 Contact with and (suspected) exposure to COVID-19; Z91.013 Allergy to seafood; Z91.018 Allergy to other foods; I10 Essential (primary) hypertension; E78.5 Hyperlipidemia, unspecified; Z79.899 Other long term (current) drug therapy; G89.29 Other chronic pain; M54.9 Dorsalgia, unspecified
CPT/HCPCS: 36415; 80048-TC; 80076-TC; 81001; 84132-TC; 85025-TC; C9803; G0480

== ENCOUNTER 2022-07-02 22:48 | Emergency (ER) | payer MEDICARE, OTHER ==
[~2022-07-02] VITALS: Ht 172.7 cm; Wt 104.3 kg
[2022-07-03 02:45] LABS: BASOPHILS # (AUTO) 0.1 K/uL (0.0-0.2); BASOPHILS % (AUTO) 0.9 % (0.0-2.0); EOSINOPHILS % (AUTO) 2.9 % (0.0-6.0); HEMATOCRIT 48 % (39-51); HEMOGLOBIN 16.2 g/dL (13.5-17.5); LYMPHOCYTES # (AUTO) 1.5 K/uL (0.8-4.8); LYMPHOCYTES % (AUTO) 17.6 % (20.0-44.0); MEAN CORPUSCULAR HGB CONC 34 g/dl (31.0-36.0); MEAN CORPUSCULAR VOLUME 92 fL (80-96); MONOCYTES # (AUTO) 0.8 K/uL (0.1-1.30); MONOCYTES % (AUTO) 9.7 % (2.0-12.0); NEUTROPHILS # (AUTO) 5.9 K/uL (1.8-8.9); NEUTROPHILS % (AUTO) 68.9 % (43.0-81.0); PLATELET COUNT (AUTO) 238 K/uL (150-450); RED BLOOD CELL COUNT(AUTO) 5.21 MIL/uL (4.5-6.0); WHITE BLOOD COUNT (AUTO) 8.6 K/uL (4.3-11.0)
[2022-07-03 02:56] LABS: BILIRUBIN,URINE NEGATIVE (NEGATIVE); COLOR,URINE YELLOW (YELLOW); LEUKOCYTE ESTERASE ,URINE NEGATIVE (NEGATIVE); NITRITE, URINE NEGATIVE (NEGATIVE); PROTEIN,URINE NEGATIVE (NEGATIVE); UGLUCOSE NEGATIVE (NEGATIVE); UROBILINOGEN,URINE 0.2 EU/dL (0.2)
[2022-07-03 03:01] LABS: ACETAMINOPHEN 0 ug/ml (10-30); ALANINE AMINOTRANSFERASE 39 U/L (12-78); ALBUMIN 4.1 g/dL (3.4-5.0); ALCOHOL, BLOOD < 3 mg/dL (0-0); ALKALINE PHOSPHATASE 163 U/L (46-116); ASPARTATE AMINOTRANSFERASE 13 U/L (15-37); BILIRUBIN,DIRECT 0.1 mg/dL (0.0-0.2); BILIRUBIN,TOTAL 0.3 mg/dL (0.2-1.0); CALCIUM, SERUM 9.9 mg/dL (8.5-10.1); CARBON DIOXIDE 28 mmol/L (21-32); CHLORIDE 103 mmol/L (98-107); CREATININE 1.1 mg/dL (0.6-1.3); GLUCOSE 108 mg/dL (74-106); POTASSIUM 4.1 mmol/L (3.5-5.1); SODIUM SERUM 140 mmol/L (136-145); UREA NITROGEN, BLOOD 18 mg/dL (7-18)
[2022-07-03 09:02] VITALS: BP 149/88
== END 2022-07-03 13:24 ==
LOC: ER 22:56
DX: R45.851 Suicidal ideations (principal); F14.10 Cocaine abuse, uncomplicated; Z20.822 Contact with and (suspected) exposure to COVID-19; I10 Essential (primary) hypertension; E78.5 Hyperlipidemia, unspecified; G89.29 Other chronic pain; M54.9 Dorsalgia, unspecified; Z91.013 Allergy to seafood; Z91.018 Allergy to other foods
CPT/HCPCS: 36415; 80048-TC; 80076-TC; 85025-TC; C9803; G0480

== ENCOUNTER 2022-08-10 06:52 | Emergency (ER) | payer MEDICARE, OTHER ==
[~2022-08-10] VITALS: Ht 172.7 cm; Wt 102.1 kg
--- NOTE | 2022-08-10 07:38 | NUR ---
PT CHANGED INTO GOWN. SECURITY AT BEDSIDE FOR WANDING.
[2022-08-10 07:39] VITALS: BP 165/100
--- NOTE | 2022-08-10 07:41 | NUR ---
COVID SWAB AND URINE SPECIMEN OBTAINED AND SENT TO LAB.
--- NOTE | 2022-08-10 08:04 | NUR ---
lab called for blood draw and urine/covid specimen crab picker.
[2022-08-10 08:24] LABS: BASOPHILS % (AUTO) 0.6 % (0.0-2.0); EOSINOPHILS % (AUTO) 0.7 % (0.0-6.0); HEMATOCRIT 43 % (39-51); HEMOGLOBIN 14.3 g/dL (13.5-17.5); LYMPHOCYTES # (AUTO) 1.1 K/uL (0.8-4.8); LYMPHOCYTES % (AUTO) 17.3 % (20.0-44.0); MEAN CORPUSCULAR HGB CONC 33 g/dl (31.0-36.0); MEAN CORPUSCULAR VOLUME 92 fL (80-96); MONOCYTES # (AUTO) 0.4 K/uL (0.1-1.30); MONOCYTES % (AUTO) 5.9 % (2.0-12.0); NEUTROPHILS # (AUTO) 4.6 K/uL (1.8-8.9); NEUTROPHILS % (AUTO) 75.5 % (43.0-81.0); PLATELET COUNT (AUTO) 251 K/uL (150-450); RED BLOOD CELL COUNT(AUTO) 4.68 MIL/uL (4.5-6.0); WHITE BLOOD COUNT (AUTO) 6.1 K/uL (4.3-11.0)
[2022-08-10 08:29] LABS: BILIRUBIN,URINE NEGATIVE (NEGATIVE); COLOR,URINE YELLOW (YELLOW); LEUKOCYTE ESTERASE ,URINE NEGATIVE (NEGATIVE); NITRITE, URINE NEGATIVE (NEGATIVE); PROTEIN,URINE TRACE mg/dl (NEGATIVE); UGLUCOSE NEGATIVE (NEGATIVE); UROBILINOGEN,URINE 0.2 EU/dL (0.2)
[2022-08-10 08:33] LABS: BACTERIA,URINE None seen /HPF (None Seen); MUCUS,URINE Few /LPF (None Seen); RBC,URINE 0-2 /HPF (0-2); SQUAMOUS EPITHELIAL CELL,UR Rare /HPF (None Seen); WBC,URINE 0-2 /HPF (0-3)
[2022-08-10 08:40] LABS: ALANINE AMINOTRANSFERASE 24 U/L (12-78); ALCOHOL, BLOOD < 3 mg/dL (0-0); ALKALINE PHOSPHATASE 108 U/L (46-116); ASPARTATE AMINOTRANSFERASE 14 U/L (15-37); BILIRUBIN,DIRECT 0.2 mg/dL (0.0-0.2); BILIRUBIN,TOTAL 0.6 mg/dL (0.2-1.0); CALCIUM, SERUM 8.9 mg/dL (8.5-10.1); CARBON DIOXIDE 27 mmol/L (21-32); CHLORIDE 107 mmol/L (98-107); CREATININE 0.9 mg/dL (0.6-1.3); GLUCOSE 144 mg/dL (74-106); POTASSIUM 3.3 mmol/L (3.5-5.1); SODIUM SERUM 141 mmol/L (136-145); TOTAL PROTEIN, SERUM 7.4 g/dL (6.4-8.2); UREA NITROGEN, BLOOD 13 mg/dL (7-18)
[2022-08-10 08:42] LABS: ACETAMINOPHEN < 10 ug/ml (10-30)
--- NOTE | 2022-08-10 08:53 | NUR ---
FAXED CLINICALS TO [facility].
--- NOTE | 2022-08-10 08:55 | NUR ---
ADRIANNE faxed clinicals to [facility] TEL:[phone] fax:[phone] for voluntary psychiatric treatment at [facility] [[facility] [place] [address] FAX:[phone]].
--- NOTE | 2022-08-10 09:01 | NUR ---
RECEIVED COVID NEGATIVE RESULT PER LAB.
--- NOTE | 2022-08-10 10:13 | NUR ---
SW called [facility] and per melida, they received the clincials and are waiting for feedback from [facility] pricing supervisor regarding possible admission.
--- NOTE | 2022-08-10 14:22 | NUR ---
SS Consult requested for suicidal ideation. The pt. is a 61-year-old Black male patient who came in for mental health treatment. Upon SS consult, the pt. is Alert & Oriented x 4 and makes good eye contact. The pt. appears well-groomed depressed mood & affect. Pt.'s speech is low and slow. Pt. remained calm & cooperative throughout interview. Pt. states he has been experiencing SI and denies HI. Per pt. he is experiencing auditory and commanding voices that tell him to hut himself. Per. pt. he has visual hallucinations in the form of shadows. SW explored any mental health History. Pt. stated he has been diagnosed with Depression, Bipolar Disorder and Schizophrenia. SW explored pt.'s living situation. Patient states he is currently living at a [facility] [[address] [id number]; [phone]]. Pt. provided name & contact of the [facility] project manager senior: Marc Sandhu [phone]. SW explored pt.'s drug & ETOH use. Pt. states he Cannabinoids "recreationally", beer "on the weekends". Pt. also tested positive for Cocaine. Pt. stated ambulates using a cane and is independent with all his ADL's. SW explored pt.'s support system. Pt. states his half-sister, Corrina Jung [phone] is his support system. Plan: Pt. is agreeable to be admitted voluntarily to [facility] unit. ADRIANNE received call from Director, Selma Porras stating that pt. may possibly be admitted to [facility]. ADRIANNE provided pt. with addiction & mental health resources. Per pt. he would like to return to the [facility] he resides in when ready for discharge. ADDICTION RESOURCES For Drugs and Alcohol [facility] sober living Referrals For Rehabilitation once sober Address:[address] [place] [address] [facility] [address] [place] [address] Detox/residential [facility] Substance Abuse [facility]pl[facility] ([facility]) Outpatient, residential treatment, recovery support for youth/adults [facility] www.[facility]familycounseling.Geoli.st Classifieds [facility] Teen programs for drug/alcohol education and support [facility]. Program for adults, sliding scale provides support and education [facility] [place] www.Sammie J's Divine Cupcakes & BakerywatAgameation.org [place]; Detox/residential treatment programs; transition to sober living [facility] www.cri-help.org [place]; Outpatient and residential treatment programs; transition to sober living [facility] TEL: [phone] I-ADARP [facility] [place]; Outpatient education and supportive programs for teens and adults [facility] www.[facility].org Jol[place]; Residential treatment and work program for females only [facility] www.[facility].org [place]: Outpatient/residential treatment program for teens and young adults [facility] www.[facility].org [place] Detox, inpatient, outpatient for adults and youth [facility], [facility]. [place]; Outpatient programs and referrals to community residential programs. Alcoholics Anonymous -SFV information and meeting and scheduleswww.aa-intergroup.org Ck-Nhub-Acqmatv https://al-anon.org/ [place] support groups for family of alcoholics. Marijuana Anonymous www.madistrict6.org -SFV listing of meetings Narcotics Anonymous www.na.org SOBER LIVING RESOURCES [facility] www.soberhousing.net A non-profit agency that provides resources to recovery and sober living homes throughout [facility] Men's Sober Living Homes: A Work in Progress, [facility] [place] Recovery Advocates, [place] [facility] Women's Sober Living Homes: [facility] x [address], [place] [facility] Coed Sober Living Homes: [facility] Counseling--Outpatient [facility] [address], [place] [address] (Specializes in in-depth psychotherapy for emotional distress: anxiety, depression, interpersonal conflicts, life transitions, childhood abuse) [facility] [address] [place] [address] (Assist with solving problem marital difficulties, separation & divorce, aging parents, & grief, chronic & terminal illness) [facility] [address] [place] [address] (Deal with loss & grief, anxiety, marital difficulties) Homebound/Mental Health Services [address], [address] [place] [address] (Provide in-home mental services to people who are incapable of leaving their homes) Organization for Needs of the Elderly Senior Service/Resource Center [address] [place] [address] [facility] [address] [place] [address] Mental Health Services [facility] [address] [place] [address] Services: Outpatient therapy for children, teens, young adults, adults, older adults, and families; Psychiatric services, medication support Psychiatric Outpatient Services [facility] Partial Hospitalization and Intensive Outpatient Program (Managed Care and [place] Only)[address] [facility] [facility] [phone] [facility] Partial Hospitalization and Outpatient [id number] [facility] [place], [place] [phone] GIL [facility] [id number] [place], [place] [phone] [facility] [place] Partial Hospitalization and Outpatient [id number] Carla Natarajan, [phone] Crisis and Hotline Telephone Numbers 24-Hour service unless stated [place] Crisis Hotlines: [facility] Mental Health/Crisis Line........[phone] Suicide Prevention Center (24 Hours).......[phone] Suicide Prevention Crisis Center.......698.978.6917 (24 Hours) Assaults Against Women Hotline.........942.652.7973 (24 Hours -- [facility]) Women and Children Crisis Fpc...........[phone] (24 Hours) Child Abuse Hotline............246.478.[address] [facility] (24 Hours)..........[phone] Alcoholics Anonymous (24 Hours)..........[phone] Cocaine Anonymous (24 Hours)............787.913.8868 Narcotics Anonymous (24 Hours)..........[phone] [address] [facility] [address], [place] [address]
--- NOTE | 2022-08-10 14:26 | NUR ---
Plan: Pt. is agreeable to be admitted voluntarily to [facility] unit. ADRIANNE received call from Director, Selma Porras stating that pt. may possibly be admitted to [facility] GPS. ADRIANNE notified ED Nurse, Kaelyn and GPS charge nurse.
--- NOTE | 2022-08-10 16:42 | NUR ---
PT ACCEPTED TO [facility] UNDER DR. OSEI PLEASE CALL [phone] UNIT 1 FOR REPORT. TEXTILE WORKER WILL COLLECT PT AT 1800 PER BALTA.
--- NOTE | 2022-08-10 18:28 | NUR ---
REPORT GIVEN TO MAYCO AT [facility].
== END 2022-08-10 18:39 ==
LOC: ER 06:52
DX: R45.851 Suicidal ideations (principal); F19.10 Other psychoactive substance abuse, uncomplicated; E78.5 Hyperlipidemia, unspecified; I10 Essential (primary) hypertension; G89.29 Other chronic pain; M54.9 Dorsalgia, unspecified; Z91.013 Allergy to seafood; Z91.018 Allergy to other foods; Z79.899 Other long term (current) drug therapy
CPT/HCPCS: 36415; 80048-TC; 80076-TC; 81001; 85025-TC; C9803; G0480

== ENCOUNTER 2023-02-06 10:26 | Emergency (ER) | payer MEDICARE, OTHER ==
[~2023-02-06] VITALS: Ht 172.7 cm; Wt 104.3 kg
[2023-02-06 10:45] VITALS: BP 161/76
--- NOTE | 2023-02-06 11:00 | NUR ---
[facility]BS C/O FEELING DEPRESSED AND SUICIDAL, PLAN IS TO OD ON MEDS. PLACED IN BED, AAOX4- CALM COOPERATIVE, WILL CONTINUE TO OBSERVE AND MONITOR.
--- NOTE | 2023-02-06 11:00 | NUR ---
AT BEDSIDE FOR EVAL.
--- NOTE | 2023-02-06 11:05 | NUR ---
MACARONI MAKER AT BEDSIDE
[2023-02-06 11:24] LABS: CARBON DIOXIDE 27 mmol/L (21-32); CHLORIDE 105 mmol/L (98-107); CREATININE 1.2 mg/dL (0.6-1.3); GLUCOSE 124 mg/dL (74-106); POTASSIUM 4.1 mmol/L (3.5-5.1); SODIUM SERUM 142 mmol/L (136-145); UREA NITROGEN, BLOOD 25 mg/dL (7-18)
[2023-02-06 11:26] LABS: BASOPHILS % (AUTO) 0.5 % (0.0-2.0); HEMATOCRIT 49 % (39-51); LYMPHOCYTES # (AUTO) 1.1 K/uL (0.8-4.8); LYMPHOCYTES % (AUTO) 13.9 % (20.0-44.0); MEAN CORPUSCULAR HGB CONC 33 g/dl (31.0-36.0); MEAN CORPUSCULAR VOLUME 94 fL (80-96); MONOCYTES # (AUTO) 0.7 K/uL (0.1-1.30); MONOCYTES % (AUTO) 8.9 % (2.0-12.0); NEUTROPHILS # (AUTO) 5.7 K/uL (1.8-8.9); NEUTROPHILS % (AUTO) 75.7 % (43.0-81.0); PLATELET COUNT (AUTO) 225 K/uL (150-450); RED BLOOD CELL COUNT(AUTO) 5.15 MIL/uL (4.5-6.0); WHITE BLOOD COUNT (AUTO) 7.5 K/uL (4.3-11.0)
--- NOTE | 2023-02-06 11:27 | NUR ---
NOTIFIED HOS [facility]TA[facility] FOR INSURANCE AUTH FOR [facility] PSYCH IF NEEDED.
[2023-02-06 11:29] LABS: ACETAMINOPHEN 0 ug/ml (10-30); ALANINE AMINOTRANSFERASE 34 U/L (12-78); ALBUMIN 4.4 g/dL (3.4-5.0); ALCOHOL, BLOOD < 3 mg/dL (0-0); ALKALINE PHOSPHATASE 132 U/L (46-116); ASPARTATE AMINOTRANSFERASE 17 U/L (15-37); BILIRUBIN,DIRECT 0.2 mg/dL (0.0-0.2); BILIRUBIN,TOTAL 0.9 mg/dL (0.2-1.0)
[2023-02-06 11:34] LABS: BILIRUBIN,URINE NEGATIVE (NEGATIVE); COLOR,URINE YELLOW (YELLOW); LEUKOCYTE ESTERASE ,URINE NEGATIVE (NEGATIVE); NITRITE, URINE NEGATIVE (NEGATIVE); PROTEIN,URINE TRACE mg/dl (NEGATIVE); UGLUCOSE NEGATIVE (NEGATIVE); UROBILINOGEN,URINE 0.2 EU/dL (0.2)
[2023-02-06 11:35] LABS: BACTERIA,URINE None seen /HPF (None Seen); RBC,URINE 0-2 /HPF (0-2); SQUAMOUS EPITHELIAL CELL,UR Rare /HPF (None Seen); WBC,URINE 0-2 /HPF (0-3)
--- NOTE | 2023-02-06 17:10 | NUR ---
[facility] 60-90 MIN ETA.
--- NOTE | 2023-02-06 17:10 | NUR ---
[facility] AT [facility] ACCEPTED PT, RECEIVED FAXED CLINICALS
--- NOTE | 2023-02-06 17:40 | NUR ---
PT TRANSFERED TO [facility] VIA [facility]
== END 2023-02-06 17:50 ==
LOC: ER 10:47
DX: R45.851 Suicidal ideations (principal); I10 Essential (primary) hypertension; E78.5 Hyperlipidemia, unspecified; M54.50 Low back pain, unspecified; G89.29 Other chronic pain; Z98.890 Other specified postprocedural states; Z79.899 Other long term (current) drug therapy; Z20.822 Contact with and (suspected) exposure to COVID-19; Z91.013 Allergy to seafood; Z88.8 Allergy status to other drugs, medicaments and biological substances
CPT/HCPCS: 36415; 80048-TC; 80076-TC; 81001; 85025-TC; C9803; G0480

== ENCOUNTER 2023-05-31 14:32 | Emergency (ER) | payer OTHER ==
[~2023-05-31] VITALS: Ht 172.7 cm; Wt 106.6 kg
[2023-05-31 15:27] LABS: BASOPHILS % (AUTO) 0.7 % (0.0-2.0); EOSINOPHILS # (AUTO) 0.1 K/uL (0.0-0.7); EOSINOPHILS % (AUTO) 1.3 % (0.0-6.0); HEMATOCRIT 49 % (39-51); HEMOGLOBIN 16.3 g/dL (13.5-17.5); LYMPHOCYTES # (AUTO) 1.3 K/uL (0.8-4.8); LYMPHOCYTES % (AUTO) 18.2 % (20.0-44.0); MEAN CORPUSCULAR HEMOGLOBIN 32 PG (26.0-33.0); MEAN CORPUSCULAR HGB CONC 34 g/dl (31.0-36.0); MEAN CORPUSCULAR VOLUME 94 fL (80-96); MONOCYTES # (AUTO) 0.7 K/uL (0.1-1.30); MONOCYTES % (AUTO) 10.1 % (2.0-12.0); NEUTROPHILS # (AUTO) 5.1 K/uL (1.8-8.9); NEUTROPHILS % (AUTO) 69.7 % (43.0-81.0); PLATELET COUNT (AUTO) 194 K/uL (150-450); RED BLOOD CELL COUNT(AUTO) 5.15 MIL/uL (4.5-6.0); RED CELL DISTRIBUTION WIDTH 13.5 % (11.5-15.0); WHITE BLOOD COUNT (AUTO) 7.3 K/uL (4.3-11.0)
[2023-05-31 15:43] LABS: APPEARANCE,URINE CLEAR (CLEAR); BILIRUBIN,URINE 1+ (NEGATIVE); BLOOD, URINE NEGATIVE Ery/uL (NEGATIVE); COLOR,URINE YELLOW (YELLOW); KETONES,URINE NEGATIVE (NEGATIVE); LEUKOCYTE ESTERASE ,URINE NEGATIVE (NEGATIVE); NITRITE, URINE NEGATIVE (NEGATIVE); PH,URINE 5.5 (5.0-8.0); PROTEIN,URINE 1+ mg/dl (NEGATIVE); UGLUCOSE NEGATIVE (NEGATIVE)
[2023-05-31 15:51] LABS: ALANINE AMINOTRANSFERASE 27 U/L (12-78); ALBUMIN 3.9 g/dL (3.4-5.0); ALCOHOL, BLOOD < 3 mg/dL (0-10); ALKALINE PHOSPHATASE 124 U/L (46-116); ASPARTATE AMINOTRANSFERASE 17 U/L (15-37); BILIRUBIN,DIRECT 0.1 mg/dL (0.0-0.2); BILIRUBIN,TOTAL 0.8 mg/dL (0.2-1.0); CALCIUM, SERUM 9.7 mg/dL (8.5-10.1); CARBON DIOXIDE 25 mmol/L (21-32); CHLORIDE 107 mmol/L (98-107); GLUCOSE 114 mg/dL (74-106); POTASSIUM 3.5 mmol/L (3.5-5.1); SODIUM SERUM 142 mmol/L (136-145); TOTAL PROTEIN, SERUM 7.4 g/dL (6.4-8.2); UREA NITROGEN, BLOOD 10 mg/dL (7-18)
[2023-05-31 15:55] LABS: ADD URINE CULTURE NO; BACTERIA,URINE RARE /HPF (None Seen); HYALINE CASTS, URINE Few /LPF (None Seen); MUCUS,URINE Moderate /LPF (None Seen); RBC,URINE 0-2 /HPF (0-2); WBC,URINE 0-2 /HPF (0-3)
[2023-05-31 15:58] LABS: ACETAMINOPHEN 0 ug/ml (10-30); SALICYLATE < 2.3 mg/dL (2.8-20.0)
[2023-05-31 16:01] LABS: AMPHETAMINE, URINE POSITIVE (NEGATIVE); BARBITURATE, URINE NEGATIVE (NEGATIVE); BENZODIAZEPINE, URINE NEGATIVE (NEGATIVE); CANNABINOID, URINE POSITIVE (NEGATIVE); COCCAINE, URINE POSITIVE (NEGATIVE); OPIATE, URINE NEGATIVE (NEGATIVE); PHENCYCLIDINE SCREEN,URINE NEGATIVE (NEGATIVE)
[2023-05-31 20:57] VITALS: BP 135/85; TEMP 98.1; O2SAT 98
== END 2023-05-31 20:57 | disposition home or self-care (01) ==
LOC: ER 14:36
DX: F32.A Depression, unspecified (principal); F19.10 Other psychoactive substance abuse, uncomplicated; I10 Essential (primary) hypertension; E78.5 Hyperlipidemia, unspecified; E78.00 Pure hypercholesterolemia, unspecified; Z79.899 Other long term (current) drug therapy; Z59.00 Homelessness unspecified; Z91.018 Allergy to other foods; Z91.013 Allergy to seafood
CPT/HCPCS: 36415; 80048-TC; 80076-TC; 81001; 85025-TC; G0480

== ENCOUNTER 2023-06-16 22:48 | Emergency (ER) | payer OTHER ==
[~2023-06-16] VITALS: Ht 172.7 cm; Wt 104.3 kg
[2023-06-17 00:53] VITALS: TEMP 98.1
[2023-06-17 04:11] LABS: BASOPHILS # (AUTO) 0.1 K/uL (0.0-0.2); BASOPHILS % (AUTO) 1.2 % (0.0-2.0); EOSINOPHILS # (AUTO) 0.2 K/uL (0.0-0.7); EOSINOPHILS % (AUTO) 3.4 % (0.0-6.0); HEMATOCRIT 49 % (39-51); LYMPHOCYTES # (AUTO) 1.7 K/uL (0.8-4.8); LYMPHOCYTES % (AUTO) 27.7 % (20.0-44.0); MEAN CORPUSCULAR HEMOGLOBIN 31 PG (26.0-33.0); MEAN CORPUSCULAR HGB CONC 33 g/dl (31.0-36.0); MEAN CORPUSCULAR VOLUME 94 fL (80-96); MONOCYTES # (AUTO) 0.5 K/uL (0.1-1.30); MONOCYTES % (AUTO) 8.2 % (2.0-12.0); NEUTROPHILS # (AUTO) 3.6 K/uL (1.8-8.9); NEUTROPHILS % (AUTO) 59.5 % (43.0-81.0); PLATELET COUNT (AUTO) 222 K/uL (150-450); RED BLOOD CELL COUNT(AUTO) 5.23 MIL/uL (4.5-6.0); RED CELL DISTRIBUTION WIDTH 13.2 % (11.5-15.0); WHITE BLOOD COUNT (AUTO) 6.1 K/uL (4.3-11.0)
[2023-06-17 04:25] LABS: APPEARANCE,URINE CLEAR (CLEAR); BILIRUBIN,URINE NEGATIVE (NEGATIVE); BLOOD, URINE NEGATIVE Ery/uL (NEGATIVE); COLOR,URINE DARK YELLOW (YELLOW); KETONES,URINE NEGATIVE (NEGATIVE); LEUKOCYTE ESTERASE ,URINE NEGATIVE (NEGATIVE); NITRITE, URINE NEGATIVE (NEGATIVE); PH,URINE 5.5 (5.0-8.0); PROTEIN,URINE NEGATIVE (NEGATIVE); UGLUCOSE NEGATIVE (NEGATIVE); UROBILINOGEN,URINE 0.2 EU/dL (0.2)
[2023-06-17 04:38] LABS: AMPHETAMINE, URINE NEGATIVE (NEGATIVE); BARBITURATE, URINE NEGATIVE (NEGATIVE); BENZODIAZEPINE, URINE NEGATIVE (NEGATIVE); OPIATE, URINE NEGATIVE (NEGATIVE); PHENCYCLIDINE SCREEN,URINE NEGATIVE (NEGATIVE)
[2023-06-17 04:46] LABS: ALANINE AMINOTRANSFERASE 37 U/L (12-78); ALBUMIN 3.9 g/dL (3.4-5.0); ALKALINE PHOSPHATASE 132 U/L (46-116); ASPARTATE AMINOTRANSFERASE 14 U/L (15-37); BILIRUBIN,DIRECT 0.1 mg/dL (0.0-0.2); BILIRUBIN,TOTAL 0.6 mg/dL (0.2-1.0); CALCIUM, SERUM 9.6 mg/dL (8.5-10.1); CARBON DIOXIDE 30 mmol/L (21-32); CHLORIDE 106 mmol/L (98-107); GLUCOSE 96 mg/dL (74-106); POTASSIUM 3.6 mmol/L (3.5-5.1); SODIUM SERUM 141 mmol/L (136-145); TOTAL PROTEIN, SERUM 7.6 g/dL (6.4-8.2); UREA NITROGEN, BLOOD 11 mg/dL (7-18)
[2023-06-17 04:48] LABS: CANNABINOID, URINE POSITIVE (NEGATIVE); COCCAINE, URINE POSITIVE (NEGATIVE)
[2023-06-17 04:48] LABS: ACETAMINOPHEN <10 ug/ml (10-30); ALCOHOL, BLOOD < 3 mg/dL (0-10); SALICYLATE < 2.3 mg/dL (2.8-20.0)
[2023-06-17 10:50] VITALS: BP 138/84; O2SAT 98
== END 2023-06-17 10:58 ==
LOC: ER 22:50
DX: R45.851 Suicidal ideations (principal); I10 Essential (primary) hypertension; E78.00 Pure hypercholesterolemia, unspecified; G89.29 Other chronic pain; F31.9 Bipolar disorder, unspecified; F17.200 Nicotine dependence, unspecified, uncomplicated; Z91.013 Allergy to seafood; Z91.018 Allergy to other foods; Z60.2 Problems related to living alone; Z20.822 Contact with and (suspected) exposure to COVID-19
CPT/HCPCS: 36415; 80048-TC; 80076-TC; 85025-TC; C9803; G0480

== ENCOUNTER → 2023-07-20 | Emergency (ER) | payer OTHER ==
[~2023-07-20] VITALS: Ht 172.7 cm; Wt 104.3 kg
[2023-07-20 07:29] LABS: BASOPHILS # (AUTO) 0.1 K/uL (0.0-0.2); BASOPHILS % (AUTO) 1.1 % (0.0-2.0); EOSINOPHILS # (AUTO) 0.1 K/uL (0.0-0.7); EOSINOPHILS % (AUTO) 2.5 % (0.0-6.0); HEMATOCRIT 45 % (39-51); HEMOGLOBIN 14.8 g/dL (13.5-17.5); LYMPHOCYTES # (AUTO) 0.9 K/uL (0.8-4.8); LYMPHOCYTES % (AUTO) 18.6 % (20.0-44.0); MEAN CORPUSCULAR HEMOGLOBIN 31 PG (26.0-33.0); MEAN CORPUSCULAR HGB CONC 33 g/dl (31.0-36.0); MEAN CORPUSCULAR VOLUME 93 fL (80-96); MONOCYTES # (AUTO) 0.4 K/uL (0.1-1.30); MONOCYTES % (AUTO) 9.1 % (2.0-12.0); NEUTROPHILS # (AUTO) 3.3 K/uL (1.8-8.9); NEUTROPHILS % (AUTO) 68.7 % (43.0-81.0); PLATELET COUNT (AUTO) 249 K/uL (150-450); RED BLOOD CELL COUNT(AUTO) 4.83 MIL/uL (4.5-6.0); RED CELL DISTRIBUTION WIDTH 13.4 % (11.5-15.0); WHITE BLOOD COUNT (AUTO) 4.8 K/uL (4.3-11.0)
[2023-07-20 07:36] LABS: CALCIUM, SERUM 9.6 mg/dL (8.5-10.1); CARBON DIOXIDE 30 mmol/L (21-32); CHLORIDE 107 mmol/L (98-107); CREATININE 0.9 mg/dL (0.6-1.3); GLUCOSE 94 mg/dL (74-106); POTASSIUM 4.1 mmol/L (3.5-5.1); SODIUM SERUM 142 mmol/L (136-145); UREA NITROGEN, BLOOD 8 mg/dL (7-18)
[2023-07-20 07:37] VITALS: BP 138/89; TEMP 98.4; O2SAT 97
[2023-07-20 07:42] LABS: ALANINE AMINOTRANSFERASE 37 U/L (12-78); ALKALINE PHOSPHATASE 142 U/L (46-116); ASPARTATE AMINOTRANSFERASE 20 U/L (15-37); BILIRUBIN,DIRECT 0.1 mg/dL (0.0-0.2); BILIRUBIN,TOTAL 0.6 mg/dL (0.2-1.0); TOTAL PROTEIN, SERUM 7.7 g/dL (6.4-8.2)
[2023-07-20 07:47] LABS: ACETAMINOPHEN <10 ug/ml (10-30); ALCOHOL, BLOOD < 3 mg/dL (0-10); SALICYLATE 1.2 mg/dL (2.8-20.0)
[2023-07-20 08:03] LABS: APPEARANCE,URINE CLEAR (CLEAR); BILIRUBIN,URINE NEGATIVE (NEGATIVE); BLOOD, URINE NEGATIVE Ery/uL (NEGATIVE); COLOR,URINE YELLOW (YELLOW); KETONES,URINE NEGATIVE (NEGATIVE); LEUKOCYTE ESTERASE ,URINE NEGATIVE (NEGATIVE); NITRITE, URINE NEGATIVE (NEGATIVE); PROTEIN,URINE NEGATIVE (NEGATIVE); UGLUCOSE NEGATIVE (NEGATIVE); UROBILINOGEN,URINE 0.2 EU/dL (0.2)
[2023-07-20 08:07] LABS: AMPHETAMINE, URINE NEGATIVE (NEGATIVE); BARBITURATE, URINE NEGATIVE (NEGATIVE); BENZODIAZEPINE, URINE NEGATIVE (NEGATIVE); CANNABINOID, URINE NEGATIVE (NEGATIVE); COCCAINE, URINE POSITIVE (NEGATIVE); OPIATE, URINE NEGATIVE (NEGATIVE); PHENCYCLIDINE SCREEN,URINE NEGATIVE (NEGATIVE)
== END ==
LOC: ER 06:50
DX: R45.851 Suicidal ideations (principal); F32.A Depression, unspecified; I10 Essential (primary) hypertension; E78.00 Pure hypercholesterolemia, unspecified; F17.200 Nicotine dependence, unspecified, uncomplicated; Z79.899 Other long term (current) drug therapy; Z20.822 Contact with and (suspected) exposure to COVID-19; Z91.013 Allergy to seafood; Z88.1 Allergy status to other antibiotic agents
CPT/HCPCS: 36415; 80048-TC; 80076-TC; 85025-TC; C9803; G0480

== ENCOUNTER 2023-08-24 12:47 | Emergency (ER) | payer MEDICARE, OTHER ==
[~2023-08-24] VITALS: Ht 167.6 cm; Wt 104.3 kg
[2023-08-24 13:29] LABS: BASOPHILS % (AUTO) 0.6 % (0.0-2.0); EOSINOPHILS # (AUTO) 0.1 K/uL (0.0-0.7); HEMATOCRIT 48 % (39-51); HEMOGLOBIN 15.8 g/dL (13.5-17.5); LYMPHOCYTES # (AUTO) 1.4 K/uL (0.8-4.8); LYMPHOCYTES % (AUTO) 22.3 % (20.0-44.0); MEAN CORPUSCULAR HEMOGLOBIN 31 PG (26.0-33.0); MEAN CORPUSCULAR HGB CONC 33 g/dl (31.0-36.0); MEAN CORPUSCULAR VOLUME 93 fL (80-96); MONOCYTES # (AUTO) 0.6 K/uL (0.1-1.30); MONOCYTES % (AUTO) 9.3 % (2.0-12.0); NEUTROPHILS # (AUTO) 4.2 K/uL (1.8-8.9); NEUTROPHILS % (AUTO) 65.8 % (43.0-81.0); PLATELET COUNT (AUTO) 218 K/uL (150-450); RED BLOOD CELL COUNT(AUTO) 5.13 MIL/uL (4.5-6.0); RED CELL DISTRIBUTION WIDTH 13.7 % (11.5-15.0); WHITE BLOOD COUNT (AUTO) 6.3 K/uL (4.3-11.0)
[2023-08-24 13:32] LABS: APPEARANCE,URINE CLEAR (CLEAR); BILIRUBIN,URINE 1+ (NEGATIVE); BLOOD, URINE NEGATIVE Ery/uL (NEGATIVE); COLOR,URINE YELLOW (YELLOW); KETONES,URINE NEGATIVE (NEGATIVE); LEUKOCYTE ESTERASE ,URINE NEGATIVE (NEGATIVE); NITRITE, URINE NEGATIVE (NEGATIVE); PH,URINE 5.5 (5.0-8.0); PROTEIN,URINE TRACE mg/dl (NEGATIVE); UGLUCOSE NEGATIVE (NEGATIVE)
[2023-08-24 14:01] LABS: ALANINE AMINOTRANSFERASE 35 U/L (12-78); ALBUMIN 3.9 g/dL (3.4-5.0); ALCOHOL, BLOOD < 3 mg/dL (0-10); ALKALINE PHOSPHATASE 142 U/L (46-116); ASPARTATE AMINOTRANSFERASE 21 U/L (15-37); BILIRUBIN,DIRECT 0.1 mg/dL (0.0-0.2); BILIRUBIN,TOTAL 0.6 mg/dL (0.2-1.0); CALCIUM, SERUM 9.3 mg/dL (8.5-10.1); CARBON DIOXIDE 25 mmol/L (21-32); CHLORIDE 106 mmol/L (98-107); CREATININE 0.9 mg/dL (0.6-1.3); GLUCOSE 105 mg/dL (74-106); POTASSIUM 3.5 mmol/L (3.5-5.1); SODIUM SERUM 142 mmol/L (136-145); TOTAL PROTEIN, SERUM 7.6 g/dL (6.4-8.2); UREA NITROGEN, BLOOD 12 mg/dL (7-18)
[2023-08-24 14:02] LABS: AMPHETAMINE, URINE NEGATIVE (NEGATIVE); BARBITURATE, URINE NEGATIVE (NEGATIVE); BENZODIAZEPINE, URINE NEGATIVE (NEGATIVE); OPIATE, URINE NEGATIVE (NEGATIVE); PHENCYCLIDINE SCREEN,URINE NEGATIVE (NEGATIVE)
[2023-08-24 14:05] LABS: ACETAMINOPHEN 0 ug/ml (10-30); SALICYLATE 1.5 mg/dL (2.8-20.0)
[2023-08-24 14:08] LABS: CANNABINOID, URINE POSITIVE (NEGATIVE); COCCAINE, URINE POSITIVE (NEGATIVE)
[2023-08-24 14:12] LABS: RBC,URINE 0-2 /HPF (0-2); WBC,URINE 0-2 /HPF (0-3)
[2023-08-24 14:13] LABS: ADD URINE CULTURE NO; BACTERIA,URINE Rare /HPF (None Seen); SQUAMOUS EPITHELIAL CELL,UR Moderate /HPF (None Seen)
[2023-08-24 18:37] VITALS: BP 145/79; TEMP 98.4; O2SAT 96
== END 2023-08-24 18:39 ==
LOC: ER 12:50
DX: F32.A Depression, unspecified (principal); I10 Essential (primary) hypertension; E78.00 Pure hypercholesterolemia, unspecified; G89.29 Other chronic pain; F17.200 Nicotine dependence, unspecified, uncomplicated; Z91.013 Allergy to seafood; Z91.018 Allergy to other foods; Z79.899 Other long term (current) drug therapy
CPT/HCPCS: 36415; 80048-TC; 80076-TC; 81001; 85025-TC; G0480

== ENCOUNTER → 2023-10-16 | Emergency (ER) | payer MEDICARE, OTHER ==
[~2023-10-16] VITALS: Ht 170.2 cm; Wt 104.3 kg
[2023-10-16 10:16] LABS: CALCIUM, SERUM 9.7 mg/dL (8.5-10.1); CARBON DIOXIDE 29 mmol/L (21-32); CHLORIDE 102 mmol/L (98-107); GLUCOSE 128 mg/dL (74-106); POTASSIUM 3.4 mmol/L (3.5-5.1); SODIUM SERUM 140 mmol/L (136-145); UREA NITROGEN, BLOOD 9 mg/dL (7-18)
[2023-10-16 10:22] LABS: ALANINE AMINOTRANSFERASE 29 U/L (12-78); ALBUMIN 3.9 g/dL (3.4-5.0); ALCOHOL, BLOOD < 3 mg/dL (0-10); ALKALINE PHOSPHATASE 139 U/L (46-116); ASPARTATE AMINOTRANSFERASE 17 U/L (15-37); BILIRUBIN,DIRECT 0.1 mg/dL (0.0-0.2); BILIRUBIN,TOTAL 0.6 mg/dL (0.2-1.0); TOTAL PROTEIN, SERUM 7.8 g/dL (6.4-8.2)
[2023-10-16 10:46] LABS: ACETAMINOPHEN <10 ug/ml (10-30); SALICYLATE 1.4 mg/dL (2.8-20.0)
[2023-10-16 11:13] LABS: BASOPHILS % (AUTO) 0.8 % (0.0-2.0); EOSINOPHILS # (AUTO) 0.3 K/uL (0.0-0.7); EOSINOPHILS % (AUTO) 4.2 % (0.0-6.0); HEMATOCRIT 47 % (39-51); HEMOGLOBIN 15.9 g/dL (13.5-17.5); LYMPHOCYTES # (AUTO) 1.5 K/uL (0.8-4.8); LYMPHOCYTES % (AUTO) 23.8 % (20.0-44.0); MEAN CORPUSCULAR HEMOGLOBIN 32 PG (26.0-33.0); MEAN CORPUSCULAR HGB CONC 34 g/dl (31.0-36.0); MEAN CORPUSCULAR VOLUME 93 fL (80-96); MONOCYTES # (AUTO) 0.7 K/uL (0.1-1.30); NEUTROPHILS # (AUTO) 3.8 K/uL (1.8-8.9); NEUTROPHILS % (AUTO) 60.2 % (43.0-81.0); PLATELET COUNT (AUTO) 266 K/uL (150-450); RED BLOOD CELL COUNT(AUTO) 5.04 MIL/uL (4.5-6.0); RED CELL DISTRIBUTION WIDTH 13.2 % (11.5-15.0); WHITE BLOOD COUNT (AUTO) 6.3 K/uL (4.3-11.0)
[2023-10-16 12:00] VITALS: BP 139/78; TEMP 98.4; O2SAT 100
[2023-10-16 13:37] LABS: APPEARANCE,URINE SLIGHTLY CLOUDY (CLEAR); BILIRUBIN,URINE NEGATIVE (NEGATIVE); BLOOD, URINE NEGATIVE Ery/uL (NEGATIVE); COLOR,URINE DARK YELLOW (YELLOW); KETONES,URINE NEGATIVE (NEGATIVE); LEUKOCYTE ESTERASE ,URINE NEGATIVE (NEGATIVE); NITRITE, URINE NEGATIVE (NEGATIVE); PH,URINE 5.5 (5.0-8.0); PROTEIN,URINE TRACE mg/dl (NEGATIVE); UGLUCOSE NEGATIVE (NEGATIVE)
[2023-10-16 13:51] LABS: AMPHETAMINE, URINE NEGATIVE (NEGATIVE); BARBITURATE, URINE NEGATIVE (NEGATIVE); BENZODIAZEPINE, URINE NEGATIVE (NEGATIVE); CANNABINOID, URINE POSITIVE (NEGATIVE); COCCAINE, URINE POSITIVE (NEGATIVE); OPIATE, URINE NEGATIVE (NEGATIVE); PHENCYCLIDINE SCREEN,URINE NEGATIVE (NEGATIVE)
[2023-10-16 13:53] LABS: ADD URINE CULTURE NO; BACTERIA,URINE Rare /HPF (None Seen); RBC,URINE 0-2 /HPF (0-2); SQUAMOUS EPITHELIAL CELL,UR Few /HPF (None Seen); WBC,URINE 0-2 /HPF (0-3)
== END | disposition left against medical advice (07) ==
LOC: ER 09:18
DX: R45.851 Suicidal ideations (principal); F32.A Depression, unspecified; I10 Essential (primary) hypertension; G89.29 Other chronic pain; E78.00 Pure hypercholesterolemia, unspecified; Z91.013 Allergy to seafood; Z91.018 Allergy to other foods; Z20.822 Contact with and (suspected) exposure to COVID-19
CPT/HCPCS: 36415; 80048-TC; 80076-TC; 81001; 85025-TC; C9803; G0480

== ENCOUNTER 2023-10-24 20:47 | Emergency (ER) | payer MEDICARE, OTHER ==
[~2023-10-24] VITALS: Ht 172.7 cm; Wt 97.5 kg
[2023-10-24 23:13] LABS: BASOPHILS # (AUTO) 0.1 K/uL (0.0-0.2); EOSINOPHILS # (AUTO) 0.3 K/uL (0.0-0.7); EOSINOPHILS % (AUTO) 3.4 % (0.0-6.0); HEMATOCRIT 46 % (39-51); HEMOGLOBIN 15.1 g/dL (13.5-17.5); LYMPHOCYTES # (AUTO) 2.3 K/uL (0.8-4.8); LYMPHOCYTES % (AUTO) 25.2 % (20.0-44.0); MEAN CORPUSCULAR HEMOGLOBIN 31 PG (26.0-33.0); MEAN CORPUSCULAR HGB CONC 33 g/dl (31.0-36.0); MEAN CORPUSCULAR VOLUME 94 fL (80-96); MONOCYTES # (AUTO) 0.9 K/uL (0.1-1.30); MONOCYTES % (AUTO) 10.4 % (2.0-12.0); NEUTROPHILS # (AUTO) 5.4 K/uL (1.8-8.9); PLATELET COUNT (AUTO) 239 K/uL (150-450); RED BLOOD CELL COUNT(AUTO) 4.86 MIL/uL (4.5-6.0); RED CELL DISTRIBUTION WIDTH 12.9 % (11.5-15.0)
[2023-10-24 23:23] LABS: CALCIUM, SERUM 9.2 mg/dL (8.5-10.1); CARBON DIOXIDE 29 mmol/L (21-32); CHLORIDE 101 mmol/L (98-107); GLUCOSE 118 mg/dL (74-106); POTASSIUM 3.8 mmol/L (3.5-5.1); SODIUM SERUM 138 mmol/L (136-145); UREA NITROGEN, BLOOD 17 mg/dL (7-18)
[2023-10-24 23:23] LABS: APPEARANCE,URINE CLEAR (CLEAR); BILIRUBIN,URINE NEGATIVE (NEGATIVE); BLOOD, URINE NEGATIVE Ery/uL (NEGATIVE); COLOR,URINE YELLOW (YELLOW); KETONES,URINE NEGATIVE (NEGATIVE); LEUKOCYTE ESTERASE ,URINE NEGATIVE (NEGATIVE); NITRITE, URINE NEGATIVE (NEGATIVE); PH,URINE 5.5 (5.0-8.0); PROTEIN,URINE NEGATIVE (NEGATIVE); UGLUCOSE NEGATIVE (NEGATIVE)
[2023-10-24 23:36] LABS: ALANINE AMINOTRANSFERASE 35 U/L (12-78); ALBUMIN 3.8 g/dL (3.4-5.0); ALCOHOL, BLOOD < 3 mg/dL (0-10); ALKALINE PHOSPHATASE 140 U/L (46-116); ASPARTATE AMINOTRANSFERASE 20 U/L (15-37); BILIRUBIN,DIRECT 0.1 mg/dL (0.0-0.2); BILIRUBIN,TOTAL 0.4 mg/dL (0.2-1.0); TOTAL PROTEIN, SERUM 7.4 g/dL (6.4-8.2)
[2023-10-24 23:38] LABS: ACETAMINOPHEN 0 ug/ml (10-30); SALICYLATE 1.3 mg/dL (2.8-20.0)
[2023-10-24 23:52] LABS: AMPHETAMINE, URINE NEGATIVE (NEGATIVE); BARBITURATE, URINE NEGATIVE (NEGATIVE); BENZODIAZEPINE, URINE NEGATIVE (NEGATIVE); CANNABINOID, URINE NEGATIVE (NEGATIVE); OPIATE, URINE NEGATIVE (NEGATIVE); PHENCYCLIDINE SCREEN,URINE NEGATIVE (NEGATIVE)
[2023-10-25 00:01] LABS: COCCAINE, URINE POSITIVE (NEGATIVE)
[2023-10-25 08:00] VITALS: BP 138/80; TEMP 98; O2SAT 98
== END 2023-10-25 08:45 | disposition home or self-care (01) ==
LOC: ER 20:48
DX: R45.851 Suicidal ideations (principal); F14.10 Cocaine abuse, uncomplicated; I10 Essential (primary) hypertension; G89.29 Other chronic pain; F31.9 Bipolar disorder, unspecified; E78.00 Pure hypercholesterolemia, unspecified; Z91.013 Allergy to seafood; Z91.018 Allergy to other foods; Z20.822 Contact with and (suspected) exposure to COVID-19
CPT/HCPCS: 36415; 80048-TC; 80076-TC; 85025-TC; G0480

== ENCOUNTER 2023-11-20 07:51 | Emergency (ER) | payer MEDICARE, OTHER ==
[~2023-11-20] VITALS: Ht 172.7 cm; Wt 99.8 kg
[2023-11-20 08:21] VITALS: BP 151/94; TEMP 98.2; O2SAT 99
== END 2023-11-20 08:25 | disposition left against medical advice (07) ==
LOC: ER 07:56
DX: R45.851 Suicidal ideations (principal); F32.A Depression, unspecified; Z53.21 Procedure and treatment not carried out due to patient leaving prior to being seen by health care provider

== ENCOUNTER 2023-12-25 19:23 | Emergency (ER) | payer MEDICARE, OTHER ==
[~2023-12-25] VITALS: Ht 170.2 cm; Wt 98.9 kg
[2023-12-25 20:18] LABS: BASOPHILS # (AUTO) 0.1 K/uL (0.0-0.2); BASOPHILS % (AUTO) 0.9 % (0.0-2.0); EOSINOPHILS # (AUTO) 0.3 K/uL (0.0-0.7); EOSINOPHILS % (AUTO) 3.6 % (0.0-6.0); HEMATOCRIT 43 % (39-51); HEMOGLOBIN 14.4 g/dL (13.5-17.5); LYMPHOCYTES # (AUTO) 1.9 K/uL (0.8-4.8); LYMPHOCYTES % (AUTO) 24.2 % (20.0-44.0); MEAN CORPUSCULAR HEMOGLOBIN 31 PG (26.0-33.0); MEAN CORPUSCULAR HGB CONC 34 g/dl (31.0-36.0); MEAN CORPUSCULAR VOLUME 92 fL (80-96); MONOCYTES # (AUTO) 0.4 K/uL (0.1-1.30); NEUTROPHILS # (AUTO) 5.3 K/uL (1.8-8.9); NEUTROPHILS % (AUTO) 66.3 % (43.0-81.0); PLATELET COUNT (AUTO) 231 K/uL (150-450); RED BLOOD CELL COUNT(AUTO) 4.71 MIL/uL (4.5-6.0); RED CELL DISTRIBUTION WIDTH 13.3 % (11.5-15.0); WHITE BLOOD COUNT (AUTO) 7.9 K/uL (4.3-11.0)
[2023-12-25 20:27] LABS: APPEARANCE,URINE CLEAR (CLEAR); BILIRUBIN,URINE NEGATIVE (NEGATIVE); BLOOD, URINE NEGATIVE Ery/uL (NEGATIVE); COLOR,URINE YELLOW (YELLOW); KETONES,URINE NEGATIVE (NEGATIVE); LEUKOCYTE ESTERASE ,URINE NEGATIVE (NEGATIVE); NITRITE, URINE NEGATIVE (NEGATIVE); PH,URINE 6.5 (5.0-8.0); PROTEIN,URINE NEGATIVE (NEGATIVE); UGLUCOSE NEGATIVE (NEGATIVE)
[2023-12-25 20:32] LABS: CALCIUM, SERUM 9.1 mg/dL (8.5-10.1); CARBON DIOXIDE 26 mmol/L (21-32); CHLORIDE 107 mmol/L (98-107); CREATININE 0.8 mg/dL (0.6-1.3); GLUCOSE 119 mg/dL (74-106); POTASSIUM 3.6 mmol/L (3.5-5.1); SODIUM SERUM 142 mmol/L (136-145); UREA NITROGEN, BLOOD 9 mg/dL (7-18)
[2023-12-25 20:36] LABS: AMPHETAMINE, URINE NEGATIVE (NEGATIVE); BARBITURATE, URINE NEGATIVE (NEGATIVE); BENZODIAZEPINE, URINE NEGATIVE (NEGATIVE); CANNABINOID, URINE NEGATIVE (NEGATIVE); OPIATE, URINE NEGATIVE (NEGATIVE); PHENCYCLIDINE SCREEN,URINE NEGATIVE (NEGATIVE)
[2023-12-25 20:36] LABS: ALANINE AMINOTRANSFERASE 31 U/L (12-78); ALBUMIN 3.6 g/dL (3.4-5.0); ALCOHOL, BLOOD 3 mg/dL (0-10); ALKALINE PHOSPHATASE 161 U/L (46-116); ASPARTATE AMINOTRANSFERASE 11 U/L (15-37); BILIRUBIN,DIRECT 0.1 mg/dL (0.0-0.2); BILIRUBIN,TOTAL 0.3 mg/dL (0.2-1.0); TOTAL PROTEIN, SERUM 7.1 g/dL (6.4-8.2)
[2023-12-25 20:40] LABS: COCCAINE, URINE POSITIVE (NEGATIVE)
[2023-12-25 21:14] LABS: ACETAMINOPHEN <10 ug/ml (10-30)
[2023-12-25 23:53] VITALS: BP 143/84; TEMP 98.9; O2SAT 100
== END 2023-12-25 23:54 ==
LOC: ER 19:27
DX: F32.A Depression, unspecified (principal); I10 Essential (primary) hypertension; G89.29 Other chronic pain; E78.00 Pure hypercholesterolemia, unspecified; Z91.013 Allergy to seafood; Z91.018 Allergy to other foods; Z79.899 Other long term (current) drug therapy; Z20.822 Contact with and (suspected) exposure to COVID-19
CPT/HCPCS: 36415; 80048-TC; 80076-TC; 85025-TC; G0480

== ENCOUNTER 2024-01-16 08:23 | Emergency (ER) | payer MEDICARE, OTHER ==
[~2024-01-16] VITALS: Ht 167.6 cm; Wt 104.3 kg
[2024-01-16 09:15] LABS: BASOPHILS % (AUTO) 0.3 % (0.0-2.0); EOSINOPHILS % (AUTO) 0.3 % (0.0-6.0); HEMATOCRIT 49 % (39-51); HEMOGLOBIN 16.5 g/dL (13.5-17.5); LYMPHOCYTES # (AUTO) 1.2 K/uL (0.8-4.8); LYMPHOCYTES % (AUTO) 11.5 % (20.0-44.0); MEAN CORPUSCULAR HEMOGLOBIN 31 PG (26.0-33.0); MEAN CORPUSCULAR HGB CONC 34 g/dl (31.0-36.0); MEAN CORPUSCULAR VOLUME 91 fL (80-96); MONOCYTES % (AUTO) 9.3 % (2.0-12.0); NEUTROPHILS # (AUTO) 8.3 K/uL (1.8-8.9); NEUTROPHILS % (AUTO) 78.6 % (43.0-81.0); PLATELET COUNT (AUTO) 234 K/uL (150-450); RED BLOOD CELL COUNT(AUTO) 5.34 MIL/uL (4.5-6.0); RED CELL DISTRIBUTION WIDTH 13.2 % (11.5-15.0); WHITE BLOOD COUNT (AUTO) 10.5 K/uL (4.3-11.0)
[2024-01-16 09:32] LABS: ALANINE AMINOTRANSFERASE 33 U/L (12-78); ALBUMIN 4.2 g/dL (3.4-5.0); ALCOHOL, BLOOD < 3 mg/dL (0-10); ALKALINE PHOSPHATASE 158 U/L (46-116); ASPARTATE AMINOTRANSFERASE 14 U/L (15-37); BILIRUBIN,DIRECT 0.2 mg/dL (0.0-0.2); BILIRUBIN,TOTAL 0.8 mg/dL (0.2-1.0); TOTAL PROTEIN, SERUM 8.4 g/dL (6.4-8.2)
[2024-01-16 09:35] LABS: CALCIUM, SERUM 10.1 mg/dL (8.5-10.1); CARBON DIOXIDE 26 mmol/L (21-32); CHLORIDE 103 mmol/L (98-107); CREATININE 1.2 mg/dL (0.6-1.3); GLUCOSE 117 mg/dL (74-106); SODIUM SERUM 140 mmol/L (136-145); UREA NITROGEN, BLOOD 15 mg/dL (7-18)
[2024-01-16 09:37] LABS: APPEARANCE,URINE CLEAR (CLEAR); BILIRUBIN,URINE NEGATIVE (NEGATIVE); BLOOD, URINE NEGATIVE Ery/uL (NEGATIVE); COLOR,URINE YELLOW (YELLOW); KETONES,URINE NEGATIVE (NEGATIVE); LEUKOCYTE ESTERASE ,URINE NEGATIVE (NEGATIVE); NITRITE, URINE NEGATIVE (NEGATIVE); PH,URINE 5.5 (5.0-8.0); PROTEIN,URINE NEGATIVE (NEGATIVE); UGLUCOSE NEGATIVE (NEGATIVE); UROBILINOGEN,URINE 0.2 EU/dL (0.2)
[2024-01-16 09:38] LABS: SALICYLATE 1.3 mg/dL (2.8-20.0)
[2024-01-16 09:39] LABS: ACETAMINOPHEN <10 ug/ml (10-30)
[2024-01-16 09:46] LABS: AMPHETAMINE, URINE NEGATIVE (NEGATIVE); BARBITURATE, URINE NEGATIVE (NEGATIVE); BENZODIAZEPINE, URINE NEGATIVE (NEGATIVE); CANNABINOID, URINE NEGATIVE (NEGATIVE); OPIATE, URINE NEGATIVE (NEGATIVE); PHENCYCLIDINE SCREEN,URINE NEGATIVE (NEGATIVE)
[2024-01-16 09:48] LABS: COCCAINE, URINE POSITIVE (NEGATIVE)
[2024-01-16 12:40] VITALS: BP 130/84; TEMP 98.4; O2SAT 94
== END 2024-01-16 14:41 ==
LOC: ER 08:29
DX: R45.851 Suicidal ideations (principal); F14.10 Cocaine abuse, uncomplicated; I10 Essential (primary) hypertension; G89.29 Other chronic pain; F32.A Depression, unspecified; E78.00 Pure hypercholesterolemia, unspecified; Z91.013 Allergy to seafood; Z91.018 Allergy to other foods; Z79.899 Other long term (current) drug therapy; Z20.822 Contact with and (suspected) exposure to COVID-19
CPT/HCPCS: 36415; 80048-TC; 80076-TC; 85025-TC; G0480

== ENCOUNTER 2024-02-02 20:22 | Emergency (ER) | payer MEDICARE, OTHER ==
[~2024-02-02] VITALS: Ht 167.6 cm; Wt 97.5 kg
[2024-02-02 21:32] LABS: APPEARANCE,URINE Clear (CLEAR); BILIRUBIN,URINE SMALL (NEGATIVE); BLOOD, URINE Trace-lysed Ery/uL (NEGATIVE); COLOR,URINE YELLOW (YELLOW); KETONES,URINE Trace mg/dL (NEGATIVE); LEUKOCYTE ESTERASE ,URINE Negative (NEGATIVE); NITRITE, URINE Negative (NEGATIVE); PH,URINE 5.5 (5.0-8.0); PROTEIN,URINE 30 mg/dl (NEGATIVE); UGLUCOSE Negative (NEGATIVE)
[2024-02-02 21:43] LABS: AMPHETAMINE, URINE NEGATIVE (NEGATIVE); BARBITURATE, URINE NEGATIVE (NEGATIVE); BENZODIAZEPINE, URINE NEGATIVE (NEGATIVE); CANNABINOID, URINE NEGATIVE (NEGATIVE); OPIATE, URINE NEGATIVE (NEGATIVE); PHENCYCLIDINE SCREEN,URINE NEGATIVE (NEGATIVE)
[2024-02-02 21:49] LABS: COCCAINE, URINE POSITIVE (NEGATIVE)
[2024-02-02] MEDS ORDERED: IBUPROFEN 600 MG TABLET ONE (21:49)
[2024-02-02] MEDS: IBUPROFEN 600 MG TABLET PO ONE (21:50)
[2024-02-02 21:52] LABS: BASOPHILS # (AUTO) 0.1 K/uL (0.0-0.2); BASOPHILS % (AUTO) 0.8 % (0.0-2.0); EOSINOPHILS # (AUTO) 0.3 K/uL (0.0-0.7); EOSINOPHILS % (AUTO) 3.3 % (0.0-6.0); HEMATOCRIT 47 % (39-51); HEMOGLOBIN 15.5 g/dL (13.5-17.5); LYMPHOCYTES # (AUTO) 1.9 K/uL (0.8-4.8); LYMPHOCYTES % (AUTO) 20.4 % (20.0-44.0); MEAN CORPUSCULAR HEMOGLOBIN 30 PG (26.0-33.0); MEAN CORPUSCULAR HGB CONC 33 g/dl (31.0-36.0); MEAN CORPUSCULAR VOLUME 89 fL (80-96); MONOCYTES # (AUTO) 0.9 K/uL (0.1-1.30); MONOCYTES % (AUTO) 9.8 % (2.0-12.0); NEUTROPHILS # (AUTO) 6.1 K/uL (1.8-8.9); NEUTROPHILS % (AUTO) 65.7 % (43.0-81.0); PLATELET COUNT (AUTO) 148 K/uL (150-450); RED BLOOD CELL COUNT(AUTO) 5.21 MIL/uL (4.5-6.0); RED CELL DISTRIBUTION WIDTH 12.8 % (11.5-15.0); WHITE BLOOD COUNT (AUTO) 9.3 K/uL (4.3-11.0)
[2024-02-02 22:18] LABS: ALANINE AMINOTRANSFERASE 33 U/L (12-78); ALBUMIN 3.9 g/dL (3.4-5.0); ALCOHOL, BLOOD < 3 mg/dL (0-10); ALKALINE PHOSPHATASE 162 U/L (46-116); ASPARTATE AMINOTRANSFERASE 20 U/L (15-37); BILIRUBIN,DIRECT 0.1 mg/dL (0.0-0.2); BILIRUBIN,TOTAL 0.7 mg/dL (0.2-1.0); CALCIUM, SERUM 8.9 mg/dL (8.5-10.1); CARBON DIOXIDE 27 mmol/L (21-32); CHLORIDE 106 mmol/L (98-107); GLUCOSE 105 mg/dL (74-106); POTASSIUM 3.6 mmol/L (3.5-5.1); SODIUM SERUM 140 mmol/L (136-145); TOTAL PROTEIN, SERUM 7.3 g/dL (6.4-8.2); UREA NITROGEN, BLOOD 15 mg/dL (7-18)
[2024-02-02 22:20] LABS: ACETAMINOPHEN < 2 ug/ml (10-30); SALICYLATE 1.5 mg/dL (2.8-20.0)
[2024-02-03 03:21] VITALS: BP 127/74; TEMP 98.8; O2SAT 98
== END 2024-02-03 03:21 ==
LOC: ER 20:28
DX: F32.A Depression, unspecified (principal); R45.851 Suicidal ideations; I10 Essential (primary) hypertension; M19.09 Primary osteoarthritis, other specified site; F14.10 Cocaine abuse, uncomplicated; F12.10 Cannabis abuse, uncomplicated; F17.200 Nicotine dependence, unspecified, uncomplicated; Z91.013 Allergy to seafood; Z91.018 Allergy to other foods; Z20.822 Contact with and (suspected) exposure to COVID-19; Z59.00 Homelessness unspecified
CPT/HCPCS: 36415; 80048-TC; 80076-TC; 85025-TC; G0480

== ENCOUNTER 2024-02-19 02:33 | Emergency (ER) | payer MEDICARE, OTHER ==
[~2024-02-19] VITALS: Ht 172.7 cm; Wt 83.9 kg
[2024-02-19 04:54] LABS: BASOPHILS # (AUTO) 0.1 K/uL (0.0-0.2); BASOPHILS % (AUTO) 0.9 % (0.0-2.0); EOSINOPHILS # (AUTO) 0.3 K/uL (0.0-0.7); EOSINOPHILS % (AUTO) 4.2 % (0.0-6.0); HEMATOCRIT 43 % (39-51); HEMOGLOBIN 14.6 g/dL (13.5-17.5); LYMPHOCYTES # (AUTO) 1.7 K/uL (0.8-4.8); LYMPHOCYTES % (AUTO) 25.5 % (20.0-44.0); MEAN CORPUSCULAR HEMOGLOBIN 31 PG (26.0-33.0); MEAN CORPUSCULAR HGB CONC 34 g/dl (31.0-36.0); MEAN CORPUSCULAR VOLUME 90 fL (80-96); MONOCYTES # (AUTO) 0.7 K/uL (0.1-1.30); MONOCYTES % (AUTO) 9.9 % (2.0-12.0); NEUTROPHILS % (AUTO) 59.5 % (43.0-81.0); PLATELET COUNT (AUTO) 230 K/uL (150-450); RED BLOOD CELL COUNT(AUTO) 4.75 MIL/uL (4.5-6.0); WHITE BLOOD COUNT (AUTO) 6.8 K/uL (4.3-11.0)
[2024-02-19 05:14] LABS: ALANINE AMINOTRANSFERASE 38 U/L (12-78); ALBUMIN 3.6 g/dL (3.4-5.0); ALCOHOL, BLOOD < 3 mg/dL (0-10); ALKALINE PHOSPHATASE 183 U/L (46-116); ASPARTATE AMINOTRANSFERASE 25 U/L (15-37); BILIRUBIN,DIRECT 0.2 mg/dL (0.0-0.2); BILIRUBIN,TOTAL 0.4 mg/dL (0.2-1.0); CALCIUM, SERUM 8.7 mg/dL (8.5-10.1); CARBON DIOXIDE 26 mmol/L (21-32); CHLORIDE 108 mmol/L (98-107); CREATININE 0.9 mg/dL (0.6-1.3); GLUCOSE 105 mg/dL (74-106); SODIUM SERUM 143 mmol/L (136-145); TOTAL PROTEIN, SERUM 7.4 g/dL (6.4-8.2); UREA NITROGEN, BLOOD 17 mg/dL (7-18)
[2024-02-19 05:25] LABS: APPEARANCE,URINE CLEAR (CLEAR); BILIRUBIN,URINE 2+ (NEGATIVE); BLOOD, URINE TRACE-INTA Ery/uL (NEGATIVE); COLOR,URINE YELLOW (YELLOW); KETONES,URINE TRACE mg/dL (NEGATIVE); LEUKOCYTE ESTERASE ,URINE NEGATIVE (NEGATIVE); NITRITE, URINE NEGATIVE (NEGATIVE); PROTEIN,URINE TRACE mg/dl (NEGATIVE); UGLUCOSE NEGATIVE (NEGATIVE)
[2024-02-19 05:26] LABS: ACETAMINOPHEN 0 ug/ml (10-30); SALICYLATE 2.1 mg/dL (2.8-20.0)
[2024-02-19 05:39] LABS: AMPHETAMINE, URINE NEGATIVE (NEGATIVE); BARBITURATE, URINE NEGATIVE (NEGATIVE); BENZODIAZEPINE, URINE NEGATIVE (NEGATIVE); OPIATE, URINE NEGATIVE (NEGATIVE); PHENCYCLIDINE SCREEN,URINE NEGATIVE (NEGATIVE)
[2024-02-19 05:40] LABS: CANNABINOID, URINE POSITIVE (NEGATIVE); COCCAINE, URINE POSITIVE (NEGATIVE)
[2024-02-19 06:08] LABS: MUCUS,URINE Many /LPF (None Seen)
[2024-02-19 06:09] LABS: ADD URINE CULTURE NO; BACTERIA,URINE Rare /HPF (None Seen); RBC,URINE 0-2 /HPF (0-2); SQUAMOUS EPITHELIAL CELL,UR Few /HPF (None Seen); WBC,URINE 0-2 /HPF (0-3)
[2024-02-19 11:37] VITALS: BP 128/79; TEMP 98.5; O2SAT 97
== END 2024-02-19 11:37 ==
LOC: ER 02:37
DX: R45.851 Suicidal ideations (principal); F19.10 Other psychoactive substance abuse, uncomplicated; I10 Essential (primary) hypertension; F31.9 Bipolar disorder, unspecified; E78.00 Pure hypercholesterolemia, unspecified; F17.200 Nicotine dependence, unspecified, uncomplicated; Z91.013 Allergy to seafood; Z79.899 Other long term (current) drug therapy; Z91.018 Allergy to other foods; Z20.822 Contact with and (suspected) exposure to COVID-19
CPT/HCPCS: 36415; 80048-TC; 80076-TC; 81001; 85025-TC; G0480

== ENCOUNTER 2024-03-17 15:55 | Inpatient (IN) | payer MEDICARE, OTHER ==
[~2024-03-17] VITALS: Ht 172.7 cm; Wt 108.9 kg
[2024-03-17 17:07] LABS: BASOPHILS # (AUTO) 0.1 K/uL (0.0-0.2); BASOPHILS % (AUTO) 0.9 % (0.0-2.0); EOSINOPHILS # (AUTO) 0.2 K/uL (0.0-0.7); EOSINOPHILS % (AUTO) 3.7 % (0.0-6.0); HEMATOCRIT 46 % (39-51); HEMOGLOBIN 15.2 g/dL (13.5-17.5); LYMPHOCYTES # (AUTO) 1.6 K/uL (0.8-4.8); LYMPHOCYTES % (AUTO) 25.2 % (20.0-44.0); MEAN CORPUSCULAR HEMOGLOBIN 30 PG (26.0-33.0); MEAN CORPUSCULAR HGB CONC 33 g/dl (31.0-36.0); MEAN CORPUSCULAR VOLUME 91 fL (80-96); MONOCYTES # (AUTO) 0.7 K/uL (0.1-1.30); MONOCYTES % (AUTO) 11.8 % (2.0-12.0); NEUTROPHILS # (AUTO) 3.6 K/uL (1.8-8.9); NEUTROPHILS % (AUTO) 58.4 % (43.0-81.0); PLATELET COUNT (AUTO) 223 K/uL (150-450); RED BLOOD CELL COUNT(AUTO) 5.05 MIL/uL (4.5-6.0); WHITE BLOOD COUNT (AUTO) 6.2 K/uL (4.3-11.0)
[2024-03-17 17:16] LABS: CARBON DIOXIDE 32 mmol/L (21-32); CHLORIDE 106 mmol/L (98-107); CREATININE 0.9 mg/dL (0.6-1.3); GLUCOSE 82 mg/dL (74-106); POTASSIUM 3.2 mmol/L (3.5-5.1); SODIUM SERUM 141 mmol/L (136-145); UREA NITROGEN, BLOOD 10 mg/dL (7-18)
[2024-03-17 17:19] LABS: INR 1.23 (0.91-1.10); PROTHROMBIN TIME 12.6 SECS (9.2-11.1)
[2024-03-17 17:21] LABS: ALANINE AMINOTRANSFERASE 33 U/L (12-78); ALBUMIN 3.8 g/dL (3.4-5.0); ALCOHOL, BLOOD < 3 mg/dL (0-10); ALKALINE PHOSPHATASE 141 U/L (46-116); ASPARTATE AMINOTRANSFERASE 17 U/L (15-37); BILIRUBIN,DIRECT 0.1 mg/dL (0.0-0.2); BILIRUBIN,TOTAL 0.6 mg/dL (0.2-1.0); TOTAL PROTEIN, SERUM 7.3 g/dL (6.4-8.2)
[2024-03-17 17:22] LABS: ACETAMINOPHEN <10 ug/ml (10-30); SALICYLATE 1.2 mg/dL (2.8-20.0)
[2024-03-17] MEDS ORDERED: POTASSIUM CHLORIDE 20 MEQ TAB.PRT.SR PO ONE (18:07)
[2024-03-17] MEDS: POTASSIUM CHLORIDE 20 MEQ TAB.PRT.SR PO ONE (18:13)
[2024-03-17 19:00] LABS: APPEARANCE,URINE Clear (CLEAR); BILIRUBIN,URINE Negative (NEGATIVE); BLOOD, URINE Moderate Ery/uL (NEGATIVE); COLOR,URINE YELLOW (YELLOW); KETONES,URINE Trace mg/dL (NEGATIVE); LEUKOCYTE ESTERASE ,URINE Negative (NEGATIVE); NITRITE, URINE Negative (NEGATIVE); PH,URINE 5.5 (5.0-8.0); PROTEIN,URINE Negative (NEGATIVE); UGLUCOSE Negative (NEGATIVE); UROBILINOGEN,URINE 0.2 EU/dL (0.2)
[2024-03-17 19:17] LABS: AMPHETAMINE, URINE NEGATIVE (NEGATIVE); BARBITURATE, URINE NEGATIVE (NEGATIVE); BENZODIAZEPINE, URINE NEGATIVE (NEGATIVE); OPIATE, URINE NEGATIVE (NEGATIVE); PHENCYCLIDINE SCREEN,URINE NEGATIVE (NEGATIVE)
[2024-03-17 19:18] LABS: CANNABINOID, URINE POSITIVE (NEGATIVE); COCCAINE, URINE POSITIVE (NEGATIVE)
[2024-03-17 19:19] LABS: ADD URINE CULTURE NO; BACTERIA,URINE Few /HPF (None Seen); CALCIUM OXALATE CRYSTALS,UR Moderate /HPF (None Seen); SQUAMOUS EPITHELIAL CELL,UR Few /HPF (None Seen); WBC,URINE 0-2 /HPF (0-3)
[2024-03-17 19:20] LABS: MUCUS,URINE Few /LPF (None Seen)
[2024-03-17] MEDS ORDERED: TAMS-12 PO (19:34)
[2024-03-17] MEDS ORDERED: POTA10TA PO (19:34)
[2024-03-17] MEDS ORDERED: HYDR12.55 PO (19:34)
[2024-03-17] MEDS ORDERED: QUET400T PO (19:34)
[2024-03-17] MEDS ORDERED: BENA10TA74 PO (19:34)
[2024-03-17] MEDS ORDERED: CELE-85 PO (19:34)
[2024-03-17] MEDS ORDERED: ALBU18HF2 IH (19:34)
[2024-03-17] MEDS ORDERED: ESOM20CA37 PO (19:34)
[2024-03-17] MEDS ORDERED: HEPARIN SODIUM, PORCINE 5000 UNITS/1 ML VIAL ONE (20:28)
[2024-03-17] MEDS ORDERED: HEPARIN SODIUM, PORCINE 5000 UNITS/1 ML VIAL IV ONE ×2 (20:30)
[2024-03-17] MEDS: HEPARIN INFUSION/D5W 500 ML IV PRN (20:45)
[2024-03-17] MEDS: HEPARIN SODIUM, PORCINE 5000 UNITS/1 ML VIAL IV ONE (20:45)
[2024-03-17 21:04] VITALS: O2SAT 95
[2024-03-17 23:30] VITALS: BP 152/135; TEMP 98.5; O2SAT 98
[2024-03-17] MEDS ORDERED: ONDANSETRON HCL/PF 4 MG/2 ML VIAL IVP PRN (23:30)
[2024-03-17] MEDS ORDERED: ACETAMINOPHEN 325 MG TABLET PO PRN (23:30)
[2024-03-18] MEDS ORDERED: MORPHINE SULFATE INJ 2 MG/ML DISP.SYRIN IV PRN (00:30)
[2024-03-18 07:05] LABS: BASOPHILS # (AUTO) 0.1 K/uL (0.0-0.2); EOSINOPHILS # (AUTO) 0.2 K/uL (0.0-0.7); EOSINOPHILS % (AUTO) 4.8 % (0.0-6.0); HEMATOCRIT 44 % (39-51); HEMOGLOBIN 14.8 g/dL (13.5-17.5); LYMPHOCYTES # (AUTO) 1.5 K/uL (0.8-4.8); LYMPHOCYTES % (AUTO) 28.3 % (20.0-44.0); MEAN CORPUSCULAR HEMOGLOBIN 31 PG (26.0-33.0); MEAN CORPUSCULAR HGB CONC 34 g/dl (31.0-36.0); MEAN CORPUSCULAR VOLUME 92 fL (80-96); MONOCYTES # (AUTO) 0.6 K/uL (0.1-1.30); MONOCYTES % (AUTO) 11.5 % (2.0-12.0); NEUTROPHILS # (AUTO) 2.8 K/uL (1.8-8.9); NEUTROPHILS % (AUTO) 54.4 % (43.0-81.0); PLATELET COUNT (AUTO) 213 K/uL (150-450); RED BLOOD CELL COUNT(AUTO) 4.76 MIL/uL (4.5-6.0); RED CELL DISTRIBUTION WIDTH 13.7 % (11.5-15.0); WHITE BLOOD COUNT (AUTO) 5.2 K/uL (4.3-11.0)
[2024-03-18 07:50] LABS: CALCIUM, SERUM 8.7 mg/dL (8.5-10.1); MAGNESIUM 2.2 mg/dL (1.8-2.4); PHOSPHORUS 3.1 mg/dL (2.5-4.9); POTASSIUM 3.4 mmol/L (3.5-5.1)
[2024-03-18 08:00] VITALS: BP 125/98; TEMP 98.2; O2SAT 98
[2024-03-18] MEDS: ENOXAPARIN SODIUM 100 MG/ML DISP.SYRIN SQ SCH (08:20)
[2024-03-18] MEDS: POTASSIUM CHLORIDE 20 MEQ TAB.PRT.SR PO ONE (10:21)
[2024-03-18] MEDS ORDERED: ALBUTEROL FS 2.5 MG/0.5 ML VIAL.NEB NEB PRN (11:30)
[2024-03-18 16:00] VITALS: BP 154/98; TEMP 98.2; O2SAT 99
[2024-03-18] MEDS: CELECOXIB 100 MG CAPSULE PO SCH (17:01)
[2024-03-18 20:00] VITALS: BP 108/62; TEMP 98.6; O2SAT 98
[2024-03-18] MEDS: ATORVASTATIN 40 MG TABLET PO SCH (21:23)
[2024-03-18] MEDS: QUETIAPINE FUMARATE 100 MG TABLET PO SCH (21:23)
[2024-03-19 06:53] LABS: EOSINOPHILS # (AUTO) 0.2 K/uL (0.0-0.7); EOSINOPHILS % (AUTO) 5.8 % (0.0-6.0); HEMATOCRIT 44 % (39-51); HEMOGLOBIN 14.8 g/dL (13.5-17.5); LYMPHOCYTES # (AUTO) 1.6 K/uL (0.8-4.8); LYMPHOCYTES % (AUTO) 41.1 % (20.0-44.0); MEAN CORPUSCULAR HEMOGLOBIN 31 PG (26.0-33.0); MEAN CORPUSCULAR HGB CONC 34 g/dl (31.0-36.0); MEAN CORPUSCULAR VOLUME 92 fL (80-96); MONOCYTES # (AUTO) 0.3 K/uL (0.1-1.30); MONOCYTES % (AUTO) 8.4 % (2.0-12.0); NEUTROPHILS # (AUTO) 1.7 K/uL (1.8-8.9); NEUTROPHILS % (AUTO) 43.7 % (43.0-81.0); PLATELET COUNT (AUTO) 208 K/uL (150-450); RED BLOOD CELL COUNT(AUTO) 4.79 MIL/uL (4.5-6.0)
[2024-03-19 08:00] VITALS: BP 160/96; TEMP 97.9; O2SAT 97
[2024-03-19 08:06] LABS: CALCIUM, SERUM 9.8 mg/dL (8.5-10.1); CREATININE 0.8 mg/dL (0.6-1.3); MAGNESIUM 2.1 mg/dL (1.8-2.4); PHOSPHORUS 2.9 mg/dL (2.5-4.9); POTASSIUM 3.7 mmol/L (3.5-5.1)
[2024-03-19 09:13] LABS: FREE PSA 0.15 ng/mL (0.00-45); PROSTATE SPECIFIC ANTIGEN SCR 2.24 ng/mL (0.00-4.00)
[2024-03-19] MEDS: BENAZEPRIL HCL 10 MG TABLET PO SCH (09:15)
[2024-03-19 09:16] VITALS: BP 160/96
[2024-03-19] MEDS: TAMSULOSIN 0.4 MG CAP.SR.24H PO SCH (09:16)
[2024-03-19] MEDS: PANTOPRAZOLE 40 MG TABLET.DR PO SCH (09:16)
[2024-03-19] MEDS: HYDROCHLOROTHIAZIDE 25 MG TABLET PO SCH (09:16)
[2024-03-19] MEDS ORDERED: APIX5TAB PO (14:35)
[2024-03-21 01:06] LABS: CARBOHYDRATE AG 19-9 <2 U/mL (0-35)
== END 2024-03-19 15:59 | disposition home or self-care (01) | DRG 300 ==
LOC: ER 15:59 → MED 21:27
PROVIDERS: ADMIT Nurse Practitioner Acute Care; ATTEND Student in an Organized Health Care Education/Training Program
DX: I82.412 Acute embolism and thrombosis of left femoral vein (principal); D68.69 Other thrombophilia; I82.432 Acute embolism and thrombosis of left popliteal vein; E87.6 Hypokalemia; I10 Essential (primary) hypertension; Z79.899 Other long term (current) drug therapy; F20.9 Schizophrenia, unspecified; F31.9 Bipolar disorder, unspecified; F17.210 Nicotine dependence, cigarettes, uncomplicated; E66.01 Morbid (severe) obesity due to excess calories; Z68.36 Body mass index [BMI] 36.0-36.9, adult; R74.8 Abnormal levels of other serum enzymes; R78.5 Finding of other psychotropic drug in blood; R16.0 Hepatomegaly, not elsewhere classified
CPT/HCPCS: 36415; 76700-TC; 80048-TC; 80061-TC; 80076-TC; 81001; 82378; 82607-TC; 83735-TC; 84100-TC; 84153-TC; 84154-TC; 85025-TC; 85300; 85301; 85303; 85613; 85670; 85705; 85730-TC; 85732; 86147; 86301; 93971-TC; G0378; G0480; J1644; J1650

== ENCOUNTER 2024-06-05 11:27 | Inpatient (IN) | payer MEDICARE, OTHER ==
[~2024-06-05] VITALS: Ht 172.7 cm; Wt 108.9 kg
[~2024-06-05 11:27] MED LIST changes: +ALBU18HF2 IH; -AMLO-213 PO; +APIX5TAB PO; +BENA10TA74 PO; +CELE-85 PO; +ESOM20CA37 PO; -HYDR-4354 PO; +HYDR12.55 PO; -NAPR-1009 PO; -OMEP20CA15 PO; +POTA10TA PO; +QUET400T PO; +TAMS-12 PO
[2024-06-05 14:37] LABS: CALCIUM, SERUM 8.8 mg/dL (8.5-10.1); CREATININE 0.9 mg/dL (0.6-1.3); POTASSIUM 3.3 mmol/L (3.5-5.1)
[2024-06-05 14:41] LABS: BASOPHILS % (AUTO) 0.7 % (0.0-2.0); EOSINOPHILS # (AUTO) 0.2 K/uL (0.0-0.7); EOSINOPHILS % (AUTO) 2.5 % (0.0-6.0); HEMATOCRIT 43 % (39-51); HEMOGLOBIN 14.3 g/dL (13.5-17.5); LYMPHOCYTES # (AUTO) 1.5 K/uL (0.8-4.8); LYMPHOCYTES % (AUTO) 23.8 % (20.0-44.0); MEAN CORPUSCULAR HEMOGLOBIN 30 PG (26.0-33.0); MEAN CORPUSCULAR HGB CONC 33 g/dl (31.0-36.0); MEAN CORPUSCULAR VOLUME 90 fL (80-96); MONOCYTES # (AUTO) 0.6 K/uL (0.1-1.30); MONOCYTES % (AUTO) 8.9 % (2.0-12.0); NEUTROPHILS % (AUTO) 64.1 % (43.0-81.0); PLATELET COUNT (AUTO) 253 K/uL (150-450); RED BLOOD CELL COUNT(AUTO) 4.79 MIL/uL (4.5-6.0); RED CELL DISTRIBUTION WIDTH 13.1 % (11.5-15.0); WHITE BLOOD COUNT (AUTO) 6.2 K/uL (4.3-11.0)
[2024-06-05 14:42] LABS: INR 1.17 (0.91-1.10); PROTHROMBIN TIME 12.3 SECS (9.2-11.1)
[2024-06-05] MEDS ORDERED: IBUP-1957 PO (16:49)
[2024-06-05] MEDS ORDERED: ACETAMINOPHEN 325 MG TABLET PO PRN (18:00)
[2024-06-05] MEDS ORDERED: MAGNESIUM HYDROXIDE 30 ML UDC PO PRN (18:00)
[2024-06-05] MEDS ORDERED: ONDANSETRON HCL/PF 4 MG/2 ML VIAL IVP PRN (18:00)
[2024-06-05] MEDS ORDERED: Z GUARD REMEDY 4 OZ OINT TP PRN (18:00)
[2024-06-05] MEDS ORDERED: MAG HYDROX/AL HYDROX/SIMETH 30 ML UDC PO PRN (18:00)
[2024-06-05 18:45] VITALS: BP 153/95; TEMP 98.2; O2SAT 97
[2024-06-05 20:00] VITALS: BP 151/102; TEMP 98.1; O2SAT 98
[2024-06-05] MEDS: QUETIAPINE FUMARATE 100 MG TABLET PO SCH (21:46)
[2024-06-06] MEDS: ENOXAPARIN SODIUM 100 MG/ML DISP.SYRIN SQ SCH ×2 (00:56→10:01)
[2024-06-06] MEDS: POTASSIUM CHLORIDE 20 MEQ POWDER PACKET PO SCH (00:57)
[2024-06-06 06:39] LABS: BASOPHILS % (AUTO) 0.8 % (0.0-2.0); EOSINOPHILS # (AUTO) 0.2 K/uL (0.0-0.7); EOSINOPHILS % (AUTO) 3.1 % (0.0-6.0); HEMATOCRIT 43 % (39-51); HEMOGLOBIN 14.4 g/dL (13.5-17.5); LYMPHOCYTES # (AUTO) 1.8 K/uL (0.8-4.8); LYMPHOCYTES % (AUTO) 30.9 % (20.0-44.0); MEAN CORPUSCULAR HEMOGLOBIN 31 PG (26.0-33.0); MEAN CORPUSCULAR HGB CONC 34 g/dl (31.0-36.0); MEAN CORPUSCULAR VOLUME 90 fL (80-96); MONOCYTES # (AUTO) 0.6 K/uL (0.1-1.30); MONOCYTES % (AUTO) 9.9 % (2.0-12.0); NEUTROPHILS # (AUTO) 3.1 K/uL (1.8-8.9); NEUTROPHILS % (AUTO) 55.3 % (43.0-81.0); PLATELET COUNT (AUTO) 237 K/uL (150-450); RED BLOOD CELL COUNT(AUTO) 4.72 MIL/uL (4.5-6.0); RED CELL DISTRIBUTION WIDTH 12.9 % (11.5-15.0); WHITE BLOOD COUNT (AUTO) 5.7 K/uL (4.3-11.0)
[2024-06-06 07:14] LABS: CALCIUM, SERUM 8.9 mg/dL (8.5-10.1); CREATININE 0.8 mg/dL (0.6-1.3); MAGNESIUM 2.2 mg/dL (1.8-2.4); PHOSPHORUS 3.1 mg/dL (2.5-4.9); POTASSIUM 3.6 mmol/L (3.5-5.1)
[2024-06-06] MEDS: PANTOPRAZOLE 40 MG TABLET.DR PO SCH (07:36)
[2024-06-06 08:00] VITALS: BP 157/112; TEMP 97.7; O2SAT 98
[2024-06-06] MEDS: TAMSULOSIN 0.4 MG CAP.SR.24H PO SCH (08:12)
[2024-06-06] MEDS: BENAZEPRIL HCL 10 MG TABLET PO SCH (08:13)
[2024-06-06] MEDS: NEOMY SULF/BACITRAC ZN/POLY 15 GM TUBE TP SCH (14:10)
[2024-06-06 16:00] VITALS: BP 138/89; TEMP 98.7; O2SAT 97
[2024-06-06 20:00] VITALS: BP 153/101; TEMP 98.4; O2SAT 97
[2024-06-07 07:30] VITALS: BP 161/112; TEMP 97.3; O2SAT 98
[2024-06-07] MEDS: HYDROCODONE/APAP 5/325MG TABLET PO PRN (10:07)
[2024-06-07 16:02] VITALS: BP 154/95; TEMP 98.6; O2SAT 96
[2024-06-07 20:00] VITALS: BP 146/89; TEMP 98.2; O2SAT 97
[2024-06-08] MEDS ORDERED: IV NS 0.9% 250 ML IV ONE (07:43)
[2024-06-08] MEDS ORDERED: IOHEXOL-300 100 ML VIAL IV ONE (07:43)
[2024-06-08 08:28] VITALS: BP 149/93
== END 2024-06-08 16:30 | disposition home or self-care (01) | DRG 301 ==
LOC: ER 11:30 → MED 18:23
PROVIDERS: ADMIT Internal Medicine
DX: I82.412 Acute embolism and thrombosis of left femoral vein (principal); E87.6 Hypokalemia; F20.9 Schizophrenia, unspecified; I10 Essential (primary) hypertension; G89.29 Other chronic pain; Z79.01 Long term (current) use of anticoagulants; Z79.899 Other long term (current) drug therapy; E78.00 Pure hypercholesterolemia, unspecified; Z98.890 Other specified postprocedural states; Z91.018 Allergy to other foods; Z79.51 Long term (current) use of inhaled steroids; F32.A Depression, unspecified
CPT/HCPCS: 36415; 71270-TC; 74178; 80048-TC; 83735-TC; 84100-TC; 85025-TC; 85610-TC; 93970-TC; 97112-TC; 97116-TC; 97530-TC; G0378; J1650; J7050; Q9967

== ENCOUNTER 2024-06-15 08:24 | Emergency (ER) | payer MEDICARE, OTHER ==
[~2024-06-15] VITALS: Ht 172.7 cm; Wt 108.9 kg
[~2024-06-15 08:24] MED LIST changes: -CELE-85 PO; +IBUP-1957 PO
[2024-06-15 09:16] LABS: BASOPHILS # (AUTO) 0.1 K/uL (0.0-0.2); BASOPHILS % (AUTO) 0.6 % (0.0-2.0); EOSINOPHILS % (AUTO) 0.2 % (0.0-6.0); HEMATOCRIT 46 % (39-51); HEMOGLOBIN 15.6 g/dL (13.5-17.5); LYMPHOCYTES # (AUTO) 1.3 K/uL (0.8-4.8); LYMPHOCYTES % (AUTO) 13.5 % (20.0-44.0); MEAN CORPUSCULAR HEMOGLOBIN 31 PG (26.0-33.0); MEAN CORPUSCULAR HGB CONC 34 g/dl (31.0-36.0); MEAN CORPUSCULAR VOLUME 91 fL (80-96); NEUTROPHILS # (AUTO) 7.1 K/uL (1.8-8.9); NEUTROPHILS % (AUTO) 74.7 % (43.0-81.0); PLATELET COUNT (AUTO) 239 K/uL (150-450); RED BLOOD CELL COUNT(AUTO) 5.09 MIL/uL (4.5-6.0); RED CELL DISTRIBUTION WIDTH 13.2 % (11.5-15.0); WHITE BLOOD COUNT (AUTO) 9.5 K/uL (4.3-11.0)
[2024-06-15 09:29] LABS: ALANINE AMINOTRANSFERASE 28 U/L (12-78); ALBUMIN 4.1 g/dL (3.4-5.0); ALKALINE PHOSPHATASE 138 U/L (46-116); ASPARTATE AMINOTRANSFERASE 11 U/L (15-37); BILIRUBIN,DIRECT 0.1 mg/dL (0.0-0.2); BILIRUBIN,TOTAL 0.9 mg/dL (0.2-1.0); CALCIUM, SERUM 9.5 mg/dL (8.5-10.1); CARBON DIOXIDE 31 mmol/L (21-32); CHLORIDE 111 mmol/L (98-107); CREATININE 0.9 mg/dL (0.6-1.3); GLUCOSE 106 mg/dL (74-106); POTASSIUM 3.6 mmol/L (3.5-5.1); SODIUM SERUM 147 mmol/L (136-145); TOTAL PROTEIN, SERUM 7.9 g/dL (6.4-8.2); UREA NITROGEN, BLOOD 7 mg/dL (7-18)
[2024-06-15 09:30] LABS: ACETAMINOPHEN <10 ug/ml (10-30); ALCOHOL, BLOOD < 3 mg/dL (0-10); SALICYLATE 0.9 mg/dL (2.8-20.0)
[2024-06-15 10:13] LABS: APPEARANCE,URINE CLEAR (CLEAR); BILIRUBIN,URINE NEGATIVE (NEGATIVE); BLOOD, URINE TRACE-INTA Ery/uL (NEGATIVE); COLOR,URINE YELLOW (YELLOW); KETONES,URINE NEGATIVE (NEGATIVE); LEUKOCYTE ESTERASE ,URINE NEGATIVE (NEGATIVE); NITRITE, URINE NEGATIVE (NEGATIVE); PROTEIN,URINE 1+ mg/dl (NEGATIVE); UGLUCOSE NEGATIVE (NEGATIVE)
[2024-06-15] MEDS ORDERED: ALBU18HF2 INH (10:28)
[2024-06-15] MEDS ORDERED: AMOX500C2 PO (10:28)
[2024-06-15] MEDS ORDERED: DOXY100C2 PO (10:28)
[2024-06-15] MEDS ORDERED: METH4TAB3 PO (10:28)
[2024-06-15 10:30] LABS: RBC,URINE 0-2 /HPF (0-2); WBC,URINE 0-2 /HPF (0-3)
[2024-06-15 10:31] LABS: ADD URINE CULTURE NO; BACTERIA,URINE Rare /HPF (None Seen); CALCIUM OXALATE CRYSTALS,UR Few /HPF (None Seen); SQUAMOUS EPITHELIAL CELL,UR Few /HPF (None Seen)
[2024-06-15 10:56] LABS: AMPHETAMINE, URINE NEGATIVE (NEGATIVE); BARBITURATE, URINE NEGATIVE (NEGATIVE); BENZODIAZEPINE, URINE NEGATIVE (NEGATIVE); OPIATE, URINE NEGATIVE (NEGATIVE); PHENCYCLIDINE SCREEN,URINE NEGATIVE (NEGATIVE)
[2024-06-15 10:59] LABS: CANNABINOID, URINE POSITIVE (NEGATIVE); COCCAINE, URINE POSITIVE (NEGATIVE)
[2024-06-15 12:00] VITALS: BP 137/84; TEMP 98; O2SAT 99
== END 2024-06-15 12:59 ==
LOC: ER 08:29
DX: J44.1 Chronic obstructive pulmonary disease with (acute) exacerbation (principal); R05.9 Cough, unspecified; R09.81 Nasal congestion; F32.A Depression, unspecified; I10 Essential (primary) hypertension; K21.9 Gastro-esophageal reflux disease without esophagitis; G89.29 Other chronic pain; M54.9 Dorsalgia, unspecified; E78.00 Pure hypercholesterolemia, unspecified; Z91.018 Allergy to other foods; F12.10 Cannabis abuse, uncomplicated; F14.10 Cocaine abuse, uncomplicated; F17.200 Nicotine dependence, unspecified, uncomplicated; Z20.822 Contact with and (suspected) exposure to COVID-19
CPT/HCPCS: 36415; 71045-TC; 80048-TC; 80076-TC; 81001; 85025-TC; G0480

== ENCOUNTER 2024-07-08 10:56 | Emergency (ER) | payer MEDICARE, OTHER ==
[~2024-07-08] VITALS: Ht 167.6 cm; Wt 95.3 kg
[~2024-07-08 10:56] MED LIST changes: +ALBU18HF2 INH; +AMOX500C2 PO; +DOXY100C2 PO; +METH4TAB3 PO
[2024-07-08 11:10] VITALS: TEMP 97.9
[2024-07-08] MEDS ORDERED: IBUP-1955 PO (12:59)
[2024-07-08 13:48] LABS: BASOPHILS # (AUTO) 0.1 K/uL (0.0-0.2); BASOPHILS % (AUTO) 1.1 % (0.0-2.0); EOSINOPHILS # (AUTO) 0.2 K/uL (0.0-0.7); EOSINOPHILS % (AUTO) 2.7 % (0.0-6.0); HEMATOCRIT 45 % (39-51); HEMOGLOBIN 14.8 g/dL (13.5-17.5); LYMPHOCYTES # (AUTO) 1.3 K/uL (0.8-4.8); LYMPHOCYTES % (AUTO) 20.4 % (20.0-44.0); MEAN CORPUSCULAR HEMOGLOBIN 30 PG (26.0-33.0); MEAN CORPUSCULAR HGB CONC 33 g/dl (31.0-36.0); MEAN CORPUSCULAR VOLUME 90 fL (80-96); MONOCYTES # (AUTO) 0.5 K/uL (0.1-1.30); NEUTROPHILS # (AUTO) 4.5 K/uL (1.8-8.9); NEUTROPHILS % (AUTO) 68.8 % (43.0-81.0); PLATELET COUNT (AUTO) 218 K/uL (150-450); RED BLOOD CELL COUNT(AUTO) 4.99 MIL/uL (4.5-6.0); RED CELL DISTRIBUTION WIDTH 13.4 % (11.5-15.0); WHITE BLOOD COUNT (AUTO) 6.5 K/uL (4.3-11.0)
[2024-07-08 13:54] LABS: APPEARANCE,URINE CLEAR (CLEAR); BILIRUBIN,URINE NEGATIVE (NEGATIVE); BLOOD, URINE NEGATIVE Ery/uL (NEGATIVE); COLOR,URINE YELLOW (YELLOW); KETONES,URINE NEGATIVE (NEGATIVE); LEUKOCYTE ESTERASE ,URINE NEGATIVE (NEGATIVE); NITRITE, URINE NEGATIVE (NEGATIVE); PROTEIN,URINE NEGATIVE (NEGATIVE); UGLUCOSE NEGATIVE (NEGATIVE)
[2024-07-08 13:57] LABS: ADD URINE CULTURE NO; BACTERIA,URINE Rare /HPF (None Seen); RBC,URINE 0-2 /HPF (0-2); SQUAMOUS EPITHELIAL CELL,UR Few /HPF (None Seen); WBC,URINE 0-2 /HPF (0-3)
[2024-07-08 13:57] LABS: CALCIUM, SERUM 9.1 mg/dL (8.5-10.1); CARBON DIOXIDE 35 mmol/L (21-32); CHLORIDE 105 mmol/L (98-107); CREATININE 1.2 mg/dL (0.6-1.3); GLUCOSE 114 mg/dL (74-106); SODIUM SERUM 145 mmol/L (136-145); UREA NITROGEN, BLOOD 16 mg/dL (7-18)
[2024-07-08 13:59] LABS: AMPHETAMINE, URINE NEGATIVE (NEGATIVE); BARBITURATE, URINE NEGATIVE (NEGATIVE); BENZODIAZEPINE, URINE NEGATIVE (NEGATIVE); CANNABINOID, URINE NEGATIVE (NEGATIVE); OPIATE, URINE NEGATIVE (NEGATIVE); PHENCYCLIDINE SCREEN,URINE NEGATIVE (NEGATIVE)
[2024-07-08 14:03] LABS: ALANINE AMINOTRANSFERASE 20 U/L (12-78); ALBUMIN 3.6 g/dL (3.4-5.0); ALKALINE PHOSPHATASE 146 U/L (46-116); ASPARTATE AMINOTRANSFERASE 13 U/L (15-37); BILIRUBIN,DIRECT 0.1 mg/dL (0.0-0.2); BILIRUBIN,TOTAL 0.7 mg/dL (0.2-1.0); TOTAL PROTEIN, SERUM 7.2 g/dL (6.4-8.2)
[2024-07-08 14:19] LABS: SALICYLATE 0.9 mg/dL (2.8-20.0)
[2024-07-08 14:19] LABS: COCCAINE, URINE POSITIVE (NEGATIVE)
[2024-07-08 14:20] LABS: ACETAMINOPHEN <10 ug/ml (10-30); ALCOHOL, BLOOD < 3 mg/dL (0-10)
[2024-07-08 15:59] VITALS: BP 152/98; O2SAT 97
== END 2024-07-08 18:30 ==
LOC: ER 11:03
DX: M79.605 Pain in left leg (principal); R20.2 Paresthesia of skin; I10 Essential (primary) hypertension; E78.5 Hyperlipidemia, unspecified; K21.9 Gastro-esophageal reflux disease without esophagitis; F31.9 Bipolar disorder, unspecified; G89.29 Other chronic pain; M54.9 Dorsalgia, unspecified; F14.10 Cocaine abuse, uncomplicated; Z91.018 Allergy to other foods; Z20.822 Contact with and (suspected) exposure to COVID-19
CPT/HCPCS: 36415; 80048-TC; 80076-TC; 81001; 85025-TC; 93971-TC; G0480

== ENCOUNTER 2024-07-19 14:18 | Emergency (ER) | payer MEDICARE, OTHER ==
[~2024-07-19] VITALS: Ht 172.7 cm; Wt 104.3 kg
[~2024-07-19 14:18] MED LIST changes: +IBUP-1955 PO
[2024-07-19 15:27] LABS: BASOPHILS % (AUTO) 0.5 % (0.0-2.0); EOSINOPHILS # (AUTO) 0.1 K/uL (0.0-0.7); HEMATOCRIT 49 % (39-51); HEMOGLOBIN 16.1 g/dL (13.5-17.5); LYMPHOCYTES # (AUTO) 1.4 K/uL (0.8-4.8); LYMPHOCYTES % (AUTO) 16.7 % (20.0-44.0); MEAN CORPUSCULAR HEMOGLOBIN 31 PG (26.0-33.0); MEAN CORPUSCULAR HGB CONC 33 g/dl (31.0-36.0); MEAN CORPUSCULAR VOLUME 93 fL (80-96); MONOCYTES # (AUTO) 1.2 K/uL (0.1-1.30); MONOCYTES % (AUTO) 13.4 % (2.0-12.0); NEUTROPHILS # (AUTO) 5.9 K/uL (1.8-8.9); NEUTROPHILS % (AUTO) 68.4 % (43.0-81.0); PLATELET COUNT (AUTO) 264 K/uL (150-450); RED BLOOD CELL COUNT(AUTO) 5.24 MIL/uL (4.5-6.0); RED CELL DISTRIBUTION WIDTH 13.6 % (11.5-15.0); WHITE BLOOD COUNT (AUTO) 8.6 K/uL (4.3-11.0)
[2024-07-19 15:41] LABS: ACETAMINOPHEN <10 ug/ml (10-30); ALANINE AMINOTRANSFERASE 25 U/L (12-78); ALBUMIN 4.3 g/dL (3.4-5.0); ALCOHOL, BLOOD < 3 mg/dL (0-10); ALKALINE PHOSPHATASE 145 U/L (46-116); ASPARTATE AMINOTRANSFERASE 17 U/L (15-37); BILIRUBIN,DIRECT 0.2 mg/dL (0.0-0.2); BILIRUBIN,TOTAL 1.1 mg/dL (0.2-1.0); CALCIUM, SERUM 9.3 mg/dL (8.5-10.1); CARBON DIOXIDE 25 mmol/L (21-32); CHLORIDE 104 mmol/L (98-107); CREATININE 2.7 mg/dL (0.6-1.3); GLUCOSE 142 mg/dL (74-106); POTASSIUM 3.9 mmol/L (3.5-5.1); SALICYLATE 1.2 mg/dL (2.8-20.0); SODIUM SERUM 141 mmol/L (136-145); TOTAL PROTEIN, SERUM 7.7 g/dL (6.4-8.2); UREA NITROGEN, BLOOD 34 mg/dL (7-18)
[2024-07-19 16:47] LABS: APPEARANCE,URINE Clear (CLEAR); BILIRUBIN,URINE SMALL (NEGATIVE); BLOOD, URINE Negative Ery/uL (NEGATIVE); COLOR,URINE YELLOW (YELLOW); KETONES,URINE Trace mg/dL (NEGATIVE); LEUKOCYTE ESTERASE ,URINE Negative (NEGATIVE); NITRITE, URINE Negative (NEGATIVE); PH,URINE 5.5 (5.0-8.0); PROTEIN,URINE 100 mg/dl (NEGATIVE); UGLUCOSE Negative (NEGATIVE)
[2024-07-19 16:52] LABS: ADD URINE CULTURE NO; BACTERIA,URINE None seen /HPF (None Seen); HYALINE CASTS, URINE Rare /LPF (None Seen); RBC,URINE 0-2 /HPF (0-2); SQUAMOUS EPITHELIAL CELL,UR None Seen /HPF (None Seen); WBC,URINE 0-2 /HPF (0-3)
[2024-07-19 17:07] LABS: AMPHETAMINE, URINE NEGATIVE (NEGATIVE); BARBITURATE, URINE NEGATIVE (NEGATIVE); BENZODIAZEPINE, URINE NEGATIVE (NEGATIVE); CANNABINOID, URINE NEGATIVE (NEGATIVE); COCCAINE, URINE POSITIVE (NEGATIVE); OPIATE, URINE NEGATIVE (NEGATIVE); PHENCYCLIDINE SCREEN,URINE NEGATIVE (NEGATIVE)
[2024-07-19 23:50] VITALS: BP 100/64; TEMP 98.2; O2SAT 94
== END 2024-07-19 23:50 ==
LOC: ER 14:27
DX: R45.851 Suicidal ideations (principal); I10 Essential (primary) hypertension; K21.9 Gastro-esophageal reflux disease without esophagitis; G89.29 Other chronic pain; F31.9 Bipolar disorder, unspecified; F12.90 Cannabis use, unspecified, uncomplicated; E78.5 Hyperlipidemia, unspecified; F20.9 Schizophrenia, unspecified; Z00.8 Encounter for other general examination; Z79.01 Long term (current) use of anticoagulants; Z79.899 Other long term (current) drug therapy; Z20.822 Contact with and (suspected) exposure to COVID-19
CPT/HCPCS: 36415; 80048-TC; 80076-TC; 81001; 82550-TC; 82553; 85025-TC; 98960; G0480

== ENCOUNTER 2024-08-15 09:57 | Emergency (ER) | payer MEDICARE, OTHER ==
[~2024-08-15] VITALS: Ht 172.7 cm; Wt 106.6 kg
[2024-08-15 10:32] LABS: BASOPHILS # (AUTO) 0.1 K/uL (0.0-0.2); BASOPHILS % (AUTO) 1.1 % (0.0-2.0); EOSINOPHILS # (AUTO) 0.1 K/uL (0.0-0.7); EOSINOPHILS % (AUTO) 1.5 % (0.0-6.0); HEMATOCRIT 45 % (39-51); HEMOGLOBIN 15.1 g/dL (13.5-17.5); LYMPHOCYTES # (AUTO) 1.1 K/uL (0.8-4.8); LYMPHOCYTES % (AUTO) 22.7 % (20.0-44.0); MEAN CORPUSCULAR HEMOGLOBIN 30 PG (26.0-33.0); MEAN CORPUSCULAR HGB CONC 33 g/dl (31.0-36.0); MEAN CORPUSCULAR VOLUME 90 fL (80-96); MONOCYTES # (AUTO) 0.5 K/uL (0.1-1.30); MONOCYTES % (AUTO) 11.3 % (2.0-12.0); NEUTROPHILS % (AUTO) 63.4 % (43.0-81.0); PLATELET COUNT (AUTO) 225 K/uL (150-450); RED BLOOD CELL COUNT(AUTO) 5.02 MIL/uL (4.5-6.0); RED CELL DISTRIBUTION WIDTH 13.3 % (11.5-15.0); WHITE BLOOD COUNT (AUTO) 4.7 K/uL (4.3-11.0)
[2024-08-15 10:38] VITALS: TEMP 98; O2SAT 98
[2024-08-15 10:45] LABS: APPEARANCE,URINE CLEAR (CLEAR); BILIRUBIN,URINE NEGATIVE (NEGATIVE); BLOOD, URINE NEGATIVE Ery/uL (NEGATIVE); COLOR,URINE YELLOW (YELLOW); KETONES,URINE NEGATIVE (NEGATIVE); LEUKOCYTE ESTERASE ,URINE NEGATIVE (NEGATIVE); NITRITE, URINE NEGATIVE (NEGATIVE); PROTEIN,URINE TRACE mg/dl (NEGATIVE); UGLUCOSE NEGATIVE (NEGATIVE)
[2024-08-15 10:52] LABS: SQUAMOUS EPITHELIAL CELL,UR Few /HPF (None Seen)
[2024-08-15 10:53] LABS: ADD URINE CULTURE NO; BACTERIA,URINE Rare /HPF (None Seen); MUCUS,URINE Moderate /LPF (None Seen); RBC,URINE 0-2 /HPF (0-2); URINE AMORPHOUS URATE Few /HPF (None Seen); WBC,URINE 0-2 /HPF (0-3)
[2024-08-15 10:58] LABS: ACETAMINOPHEN <10 ug/ml (10-30); ALANINE AMINOTRANSFERASE 25 U/L (12-78); ALCOHOL, BLOOD < 3 mg/dL (0-10); ALKALINE PHOSPHATASE 148 U/L (46-116); ASPARTATE AMINOTRANSFERASE 12 U/L (15-37); BILIRUBIN,DIRECT 0.2 mg/dL (0.0-0.2); BILIRUBIN,TOTAL 0.8 mg/dL (0.2-1.0); CALCIUM, SERUM 9.3 mg/dL (8.5-10.1); CARBON DIOXIDE 30 mmol/L (21-32); CHLORIDE 104 mmol/L (98-107); CREATININE 0.8 mg/dL (0.6-1.3); GLUCOSE 98 mg/dL (74-106); POTASSIUM 3.9 mmol/L (3.5-5.1); SALICYLATE 0.9 mg/dL (2.8-20.0); SODIUM SERUM 138 mmol/L (136-145); TOTAL PROTEIN, SERUM 7.5 g/dL (6.4-8.2); UREA NITROGEN, BLOOD 8 mg/dL (7-18)
[2024-08-15 11:02] LABS: AMPHETAMINE, URINE NEGATIVE (NEGATIVE); BARBITURATE, URINE NEGATIVE (NEGATIVE); BENZODIAZEPINE, URINE NEGATIVE (NEGATIVE); CANNABINOID, URINE POSITIVE (NEGATIVE); COCCAINE, URINE POSITIVE (NEGATIVE); OPIATE, URINE NEGATIVE (NEGATIVE); PHENCYCLIDINE SCREEN,URINE NEGATIVE (NEGATIVE)
[2024-08-15] MEDS ORDERED: BENAZEPRIL HCL 10 MG TABLET ONE (12:20)
[2024-08-15] MEDS ORDERED: HYDROCHLOROTHIAZIDE 25 MG TABLET ONE (12:21)
[2024-08-15 12:24] VITALS: BP 157/107
[2024-08-15] MEDS: BENAZEPRIL HCL 10 MG TABLET PO ONE (12:24)
[2024-08-15] MEDS: HYDROCHLOROTHIAZIDE 25 MG TABLET PO ONE (12:24)
== END 2024-08-15 13:30 ==
LOC: ER 10:01
DX: R45.851 Suicidal ideations (principal); E78.5 Hyperlipidemia, unspecified; F12.90 Cannabis use, unspecified, uncomplicated; F17.200 Nicotine dependence, unspecified, uncomplicated; F31.9 Bipolar disorder, unspecified; I10 Essential (primary) hypertension; K21.9 Gastro-esophageal reflux disease without esophagitis; Z79.01 Long term (current) use of anticoagulants; Z20.822 Contact with and (suspected) exposure to COVID-19; Z79.899 Other long term (current) drug therapy; Z91.02 Food additives allergy status
CPT/HCPCS: 36415; 80048-TC; 80076-TC; 81001; 85025-TC; 98960; G0480

== ENCOUNTER 2024-08-25 21:48 | Emergency (ER) | payer MEDICARE, OTHER ==
[~2024-08-25] VITALS: Ht 172.7 cm; Wt 81.6 kg
[2024-08-25 22:41] VITALS: TEMP 98.6
[2024-08-25] MEDS ORDERED: APIXABAN 5 MG TABLET ONE (23:49)
[2024-08-25] MEDS ORDERED: AMLODIPINE BESYLATE 10 MG TABLET ONE (23:50)
[2024-08-26] MEDS: AMLODIPINE BESYLATE 5 MG TABLET PO ONE (00:01)
[2024-08-26] MEDS: APIXABAN 5 MG TABLET PO SCH (00:01)
[2024-08-26 00:03] LABS: BASOPHILS # (AUTO) 0.1 K/uL (0.0-0.2); BASOPHILS % (AUTO) 1.2 % (0.0-2.0); EOSINOPHILS # (AUTO) 0.2 K/uL (0.0-0.7); EOSINOPHILS % (AUTO) 2.9 % (0.0-6.0); HEMATOCRIT 45 % (39-51); HEMOGLOBIN 14.8 g/dL (13.5-17.5); LYMPHOCYTES # (AUTO) 2.2 K/uL (0.8-4.8); LYMPHOCYTES % (AUTO) 27.7 % (20.0-44.0); MEAN CORPUSCULAR HEMOGLOBIN 30 PG (26.0-33.0); MEAN CORPUSCULAR HGB CONC 33 g/dl (31.0-36.0); MEAN CORPUSCULAR VOLUME 91 fL (80-96); MONOCYTES # (AUTO) 0.7 K/uL (0.1-1.30); MONOCYTES % (AUTO) 9.2 % (2.0-12.0); NEUTROPHILS # (AUTO) 4.6 K/uL (1.8-8.9); PLATELET COUNT (AUTO) 201 K/uL (150-450); RED BLOOD CELL COUNT(AUTO) 4.89 MIL/uL (4.5-6.0); RED CELL DISTRIBUTION WIDTH 13.3 % (11.5-15.0); WHITE BLOOD COUNT (AUTO) 7.8 K/uL (4.3-11.0)
[2024-08-26 00:04] LABS: CALCIUM, SERUM 9.1 mg/dL (8.5-10.1); CARBON DIOXIDE 32 mmol/L (21-32); CHLORIDE 105 mmol/L (98-107); CREATININE 0.9 mg/dL (0.6-1.3); GLUCOSE 111 mg/dL (74-106); POTASSIUM 3.7 mmol/L (3.5-5.1); SODIUM SERUM 143 mmol/L (136-145); UREA NITROGEN, BLOOD 15 mg/dL (7-18)
[2024-08-26 00:09] LABS: ALANINE AMINOTRANSFERASE 36 U/L (12-78); ALBUMIN 3.8 g/dL (3.4-5.0); ALCOHOL, BLOOD < 3 mg/dL (0-10); ALKALINE PHOSPHATASE 167 U/L (46-116); ASPARTATE AMINOTRANSFERASE 20 U/L (15-37); BILIRUBIN,DIRECT 0.1 mg/dL (0.0-0.2); BILIRUBIN,TOTAL 0.6 mg/dL (0.2-1.0); TOTAL PROTEIN, SERUM 7.2 g/dL (6.4-8.2)
[2024-08-26 00:10] LABS: ACETAMINOPHEN <10 ug/ml (10-30); SALICYLATE 1.3 mg/dL (2.8-20.0)
[2024-08-26 00:18] VITALS: BP 150/84; O2SAT 100
== END 2024-08-26 00:23 | disposition left against medical advice (07) ==
LOC: ER 21:56
DX: I82.4Z2 Acute embolism and thrombosis of unspecified deep veins of left distal lower extremity (principal); R20.2 Paresthesia of skin; E78.5 Hyperlipidemia, unspecified; F12.90 Cannabis use, unspecified, uncomplicated; F17.200 Nicotine dependence, unspecified, uncomplicated; F31.9 Bipolar disorder, unspecified; G89.29 Other chronic pain; I10 Essential (primary) hypertension; K21.9 Gastro-esophageal reflux disease without esophagitis; Z79.01 Long term (current) use of anticoagulants; Z79.899 Other long term (current) drug therapy; Z86.718 Personal history of other venous thrombosis and embolism; Z91.018 Allergy to other foods
CPT/HCPCS: 36415; 80048-TC; 80076-TC; 85025-TC; G0480

== ENCOUNTER 2024-09-06 22:23 | Emergency (ER) | payer MEDICARE, OTHER ==
[~2024-09-06] VITALS: Ht 170.2 cm; Wt 90.7 kg
[2024-09-06] MEDS ORDERED: APIX5TAB PO (23:23)
[2024-09-06 23:28] VITALS: BP 145/98; TEMP 98; O2SAT 94
== END 2024-09-06 23:28 | disposition home or self-care (01) ==
LOC: ER 22:24
DX: M79.605 Pain in left leg (principal); E78.5 Hyperlipidemia, unspecified; F12.90 Cannabis use, unspecified, uncomplicated; F17.200 Nicotine dependence, unspecified, uncomplicated; F31.9 Bipolar disorder, unspecified; G89.29 Other chronic pain; I10 Essential (primary) hypertension; K21.9 Gastro-esophageal reflux disease without esophagitis; Z79.01 Long term (current) use of anticoagulants; Z79.899 Other long term (current) drug therapy; Z86.718 Personal history of other venous thrombosis and embolism; Z91.018 Allergy to other foods

== ENCOUNTER 2024-09-08 22:45 | Emergency (ER) | payer MEDICARE, OTHER ==
[~2024-09-08] VITALS: Ht 172.7 cm; Wt 97.5 kg
[2024-09-09 01:00] LABS: BASOPHILS # (AUTO) 0.1 K/uL (0.0-0.2); BASOPHILS % (AUTO) 0.9 % (0.0-2.0); EOSINOPHILS # (AUTO) 0.1 K/uL (0.0-0.7); EOSINOPHILS % (AUTO) 1.5 % (0.0-6.0); HEMATOCRIT 47 % (39-51); HEMOGLOBIN 15.6 g/dL (13.5-17.5); LYMPHOCYTES # (AUTO) 1.7 K/uL (0.8-4.8); LYMPHOCYTES % (AUTO) 18.2 % (20.0-44.0); MEAN CORPUSCULAR HEMOGLOBIN 31 PG (26.0-33.0); MEAN CORPUSCULAR HGB CONC 33 g/dl (31.0-36.0); MEAN CORPUSCULAR VOLUME 92 fL (80-96); MONOCYTES # (AUTO) 0.8 K/uL (0.1-1.30); MONOCYTES % (AUTO) 8.8 % (2.0-12.0); NEUTROPHILS # (AUTO) 6.4 K/uL (1.8-8.9); NEUTROPHILS % (AUTO) 70.6 % (43.0-81.0); PLATELET COUNT (AUTO) 240 K/uL (150-450); RED BLOOD CELL COUNT(AUTO) 5.11 MIL/uL (4.5-6.0); RED CELL DISTRIBUTION WIDTH 13.4 % (11.5-15.0); WHITE BLOOD COUNT (AUTO) 9.1 K/uL (4.3-11.0)
[2024-09-09 01:08] LABS: CALCIUM, SERUM 9.5 mg/dL (8.5-10.1); CARBON DIOXIDE 31 mmol/L (21-32); CHLORIDE 108 mmol/L (98-107); GLUCOSE 112 mg/dL (74-106); POTASSIUM 3.9 mmol/L (3.5-5.1); SODIUM SERUM 144 mmol/L (136-145); UREA NITROGEN, BLOOD 12 mg/dL (7-18)
[2024-09-09 01:17] LABS: ALANINE AMINOTRANSFERASE 30 U/L (12-78); ALBUMIN 4.3 g/dL (3.4-5.0); ALCOHOL, BLOOD < 3 mg/dL (0-10); ALKALINE PHOSPHATASE 172 U/L (46-116); ASPARTATE AMINOTRANSFERASE 12 U/L (15-37); BILIRUBIN,DIRECT 0.1 mg/dL (0.0-0.2); BILIRUBIN,TOTAL 0.6 mg/dL (0.2-1.0); TOTAL PROTEIN, SERUM 8.2 g/dL (6.4-8.2)
[2024-09-09 01:18] LABS: ACETAMINOPHEN <10 ug/ml (10-30); SALICYLATE 1.5 mg/dL (2.8-20.0)
[2024-09-09 01:32] LABS: APPEARANCE,URINE CLEAR (CLEAR); BILIRUBIN,URINE NEGATIVE (NEGATIVE); BLOOD, URINE NEGATIVE Ery/uL (NEGATIVE); COLOR,URINE YELLOW (YELLOW); KETONES,URINE NEGATIVE (NEGATIVE); LEUKOCYTE ESTERASE ,URINE NEGATIVE (NEGATIVE); NITRITE, URINE NEGATIVE (NEGATIVE); PROTEIN,URINE TRACE mg/dl (NEGATIVE); UGLUCOSE NEGATIVE (NEGATIVE)
[2024-09-09 01:47] LABS: AMPHETAMINE, URINE NEGATIVE (NEGATIVE); BARBITURATE, URINE NEGATIVE (NEGATIVE); BENZODIAZEPINE, URINE NEGATIVE (NEGATIVE); CANNABINOID, URINE NEGATIVE (NEGATIVE); OPIATE, URINE NEGATIVE (NEGATIVE); PHENCYCLIDINE SCREEN,URINE NEGATIVE (NEGATIVE)
[2024-09-09 01:48] LABS: COCCAINE, URINE POSITIVE (NEGATIVE)
[2024-09-09 02:21] LABS: ADD URINE CULTURE NO; BACTERIA,URINE None seen /HPF (None Seen); MUCUS,URINE Moderate /LPF (None Seen); RBC,URINE NONE SEEN /HPF (0-2); SQUAMOUS EPITHELIAL CELL,UR None Seen /HPF (None Seen); WBC,URINE NONE SEEN /HPF (0-3)
[2024-09-09 05:56] VITALS: BP 134/70; TEMP 98.3; O2SAT 96
== END 2024-09-09 05:56 ==
LOC: ER 23:07
DX: R45.851 Suicidal ideations (principal); E78.5 Hyperlipidemia, unspecified; F12.90 Cannabis use, unspecified, uncomplicated; F17.200 Nicotine dependence, unspecified, uncomplicated; F31.9 Bipolar disorder, unspecified; G89.29 Other chronic pain; I10 Essential (primary) hypertension; K21.9 Gastro-esophageal reflux disease without esophagitis; Z79.01 Long term (current) use of anticoagulants; Z79.899 Other long term (current) drug therapy; Z86.718 Personal history of other venous thrombosis and embolism; Z20.822 Contact with and (suspected) exposure to COVID-19; Z59.00 Homelessness unspecified
CPT/HCPCS: 36415; 80048-TC; 80076-TC; 81001; 85025-TC; G0480

== ENCOUNTER 2024-09-17 21:39 | Emergency (ER) | payer MEDICARE, OTHER ==
[~2024-09-17] VITALS: Ht 172.7 cm; Wt 108.9 kg
[2024-09-18 01:50] VITALS: BP 122/80; TEMP 98.2; O2SAT 99
== END 2024-09-18 01:58 | disposition home or self-care (01) ==
LOC: ER 21:44
DX: M79.661 Pain in right lower leg (principal); M79.18 Myalgia, other site; E78.5 Hyperlipidemia, unspecified; F12.90 Cannabis use, unspecified, uncomplicated; F17.200 Nicotine dependence, unspecified, uncomplicated; F31.9 Bipolar disorder, unspecified; G89.29 Other chronic pain; I10 Essential (primary) hypertension; K21.9 Gastro-esophageal reflux disease without esophagitis; Z79.01 Long term (current) use of anticoagulants; Z79.899 Other long term (current) drug therapy; Z86.718 Personal history of other venous thrombosis and embolism; Z91.148 Patient's other noncompliance with medication regimen for other reason; Z91.018 Allergy to other foods
CPT/HCPCS: 93971-TC

== ENCOUNTER 2024-09-22 23:15 | Emergency (ER) | payer MEDICARE, OTHER ==
[~2024-09-22] VITALS: Ht 172.7 cm; Wt 111.1 kg
[2024-09-22 23:53] LABS: BASOPHILS # (AUTO) 0.1 K/uL (0.0-0.2); BASOPHILS % (AUTO) 0.6 % (0.0-2.0); EOSINOPHILS # (AUTO) 0.2 K/uL (0.0-0.7); EOSINOPHILS % (AUTO) 2.2 % (0.0-6.0); HEMATOCRIT 40 % (39-51); HEMOGLOBIN 13.5 g/dL (13.5-17.5); LYMPHOCYTES # (AUTO) 1.9 K/uL (0.8-4.8); LYMPHOCYTES % (AUTO) 20.7 % (20.0-44.0); MEAN CORPUSCULAR HEMOGLOBIN 31 PG (26.0-33.0); MEAN CORPUSCULAR HGB CONC 34 g/dl (31.0-36.0); MEAN CORPUSCULAR VOLUME 91 fL (80-96); MONOCYTES # (AUTO) 0.6 K/uL (0.1-1.30); MONOCYTES % (AUTO) 6.8 % (2.0-12.0); NEUTROPHILS # (AUTO) 6.3 K/uL (1.8-8.9); NEUTROPHILS % (AUTO) 69.7 % (43.0-81.0); PLATELET COUNT (AUTO) 203 K/uL (150-450); RED BLOOD CELL COUNT(AUTO) 4.37 MIL/uL (4.5-6.0); RED CELL DISTRIBUTION WIDTH 13.1 % (11.5-15.0)
[2024-09-22 23:57] LABS: CALCIUM, SERUM 9.2 mg/dL (8.5-10.1); CARBON DIOXIDE 28 mmol/L (21-32); CHLORIDE 111 mmol/L (98-107); CREATININE 1.1 mg/dL (0.6-1.3); GLUCOSE 108 mg/dL (74-106); POTASSIUM 3.3 mmol/L (3.5-5.1); SODIUM SERUM 144 mmol/L (136-145); UREA NITROGEN, BLOOD 15 mg/dL (7-18)
[2024-09-23 00:01] LABS: INR 1.22 (0.91-1.10); PARTIAL THROMBOPLASTIN TIME 24.1 SEC (24.3-34.3); PROTHROMBIN TIME 12.8 SECS (9.2-11.1)
[2024-09-23 00:02] LABS: ALANINE AMINOTRANSFERASE 29 U/L (12-78); ALBUMIN 3.4 g/dL (3.4-5.0); ALKALINE PHOSPHATASE 142 U/L (46-116); ASPARTATE AMINOTRANSFERASE 16 U/L (15-37); BILIRUBIN,DIRECT 0.1 mg/dL (0.0-0.2); BILIRUBIN,TOTAL 0.3 mg/dL (0.2-1.0); TOTAL PROTEIN, SERUM 6.7 g/dL (6.4-8.2)
[2024-09-23 03:54] VITALS: BP 181/94; TEMP 98.1; O2SAT 95
== END 2024-09-23 03:55 | disposition home or self-care (01) ==
LOC: ER 23:19
DX: M62.838 Other muscle spasm (principal); R20.2 Paresthesia of skin; I10 Essential (primary) hypertension; K21.9 Gastro-esophageal reflux disease without esophagitis; G89.29 Other chronic pain; F31.9 Bipolar disorder, unspecified; F17.200 Nicotine dependence, unspecified, uncomplicated; F12.90 Cannabis use, unspecified, uncomplicated; E78.5 Hyperlipidemia, unspecified; Z79.01 Long term (current) use of anticoagulants; Z79.899 Other long term (current) drug therapy; Z86.718 Personal history of other venous thrombosis and embolism
CPT/HCPCS: 36415; 71045-TC; 80048-TC; 80076-TC; 84484-TC; 85025-TC; 85730-TC

== ENCOUNTER 2024-10-06 00:41 | Emergency (ER) | payer MEDICARE, OTHER ==
[~2024-10-06] VITALS: Ht 172.7 cm; Wt 108.9 kg
[2024-10-06] MEDS ORDERED: ONDANSETRON HCL/PF 4 MG/2 ML VIAL ONE (04:15)
[2024-10-06] MEDS ORDERED: MORPHINE SULFATE INJ 2 MG/ML DISP.SYRIN ONE (04:15)
[2024-10-06] MEDS: IV NS 0.9% 500 ML BAG IV ONE (04:16)
[2024-10-06] MEDS: ONDANSETRON HCL/PF 4 MG/2 ML VIAL IVP ONE (04:17)
[2024-10-06] MEDS: MORPHINE SULFATE INJ 2 MG/ML DISP.SYRIN IV ONE (04:17)
[2024-10-06 04:29] LABS: BASOPHILS # (AUTO) 0.1 K/uL (0.0-0.2); BASOPHILS % (AUTO) 0.9 % (0.0-2.0); EOSINOPHILS # (AUTO) 0.2 K/uL (0.0-0.7); EOSINOPHILS % (AUTO) 2.6 % (0.0-6.0); HEMATOCRIT 49 % (39-51); HEMOGLOBIN 16.6 g/dL (13.5-17.5); LYMPHOCYTES # (AUTO) 1.6 K/uL (0.8-4.8); LYMPHOCYTES % (AUTO) 25.5 % (20.0-44.0); MEAN CORPUSCULAR HEMOGLOBIN 31 PG (26.0-33.0); MEAN CORPUSCULAR HGB CONC 34 g/dl (31.0-36.0); MEAN CORPUSCULAR VOLUME 91 fL (80-96); MONOCYTES # (AUTO) 0.6 K/uL (0.1-1.30); MONOCYTES % (AUTO) 10.3 % (2.0-12.0); NEUTROPHILS # (AUTO) 3.8 K/uL (1.8-8.9); NEUTROPHILS % (AUTO) 60.7 % (43.0-81.0); PLATELET COUNT (AUTO) 259 K/uL (150-450); RED BLOOD CELL COUNT(AUTO) 5.33 MIL/uL (4.5-6.0); RED CELL DISTRIBUTION WIDTH 13.4 % (11.5-15.0); WHITE BLOOD COUNT (AUTO) 6.3 K/uL (4.3-11.0)
[2024-10-06 04:43] LABS: ALANINE AMINOTRANSFERASE 27 U/L (12-78); ALBUMIN 4.2 g/dL (3.4-5.0); ALKALINE PHOSPHATASE 201 U/L (46-116); ASPARTATE AMINOTRANSFERASE 11 U/L (15-37); BILIRUBIN,DIRECT 0.1 mg/dL (0.0-0.2); BILIRUBIN,TOTAL 0.3 mg/dL (0.2-1.0); CALCIUM, SERUM 9.2 mg/dL (8.5-10.1); CARBON DIOXIDE 33 mmol/L (21-32); CHLORIDE 102 mmol/L (98-107); CREATININE 1.3 mg/dL (0.6-1.3); GLUCOSE 111 mg/dL (74-106); LIPASE 36 U/L (16-77); POTASSIUM 3.7 mmol/L (3.5-5.1); SODIUM SERUM 139 mmol/L (136-145); TOTAL PROTEIN, SERUM 8.2 g/dL (6.4-8.2); UREA NITROGEN, BLOOD 17 mg/dL (7-18)
[2024-10-06 05:34] LABS: APPEARANCE,URINE CLEAR (CLEAR); BILIRUBIN,URINE NEGATIVE (NEGATIVE); BLOOD, URINE NEGATIVE Ery/uL (NEGATIVE); COLOR,URINE YELLOW (YELLOW); KETONES,URINE NEGATIVE (NEGATIVE); LEUKOCYTE ESTERASE ,URINE NEGATIVE (NEGATIVE); NITRITE, URINE NEGATIVE (NEGATIVE); PROTEIN,URINE NEGATIVE (NEGATIVE); UGLUCOSE NEGATIVE (NEGATIVE); UROBILINOGEN,URINE 0.2 EU/dL (0.2)
[2024-10-06] MEDS ORDERED: PANT40TA2 PO (06:22)
[2024-10-06] MEDS ORDERED: PANTOPRAZOLE 40 MG VIAL ONE (06:27)
[2024-10-06] MEDS: PANTOPRAZOLE 40 MG VIAL IV ONE (06:30)
[2024-10-06 06:46] VITALS: BP 134/80; TEMP 98.5; O2SAT 98
== END 2024-10-06 06:50 | disposition home or self-care (01) ==
LOC: ER 00:48
DX: K29.70 Gastritis, unspecified, without bleeding (principal); R11.2 Nausea with vomiting, unspecified; R10.13 Epigastric pain; E78.5 Hyperlipidemia, unspecified; F12.90 Cannabis use, unspecified, uncomplicated; F17.200 Nicotine dependence, unspecified, uncomplicated; F31.9 Bipolar disorder, unspecified; G89.29 Other chronic pain; I10 Essential (primary) hypertension; K21.00 Gastro-esophageal reflux disease with esophagitis, without bleeding; Z79.01 Long term (current) use of anticoagulants; Z79.899 Other long term (current) drug therapy; Z86.718 Personal history of other venous thrombosis and embolism; Z91.018 Allergy to other foods
CPT/HCPCS: 99285; 74176; 96374; 96375; 71045; 93005; 85025; 80048; 83690; 80076; 81003; 36415; 84484; J2405; J7030; J2470; J2270

== ENCOUNTER 2024-10-08 15:18 | Emergency (ER) | payer MEDICARE, OTHER ==
[~2024-10-08] VITALS: Ht 167.6 cm; Wt 90.7 kg
[~2024-10-08 15:18] MED LIST changes: +PANT40TA2 PO
[2024-10-08 16:33] LABS: APPEARANCE,URINE CLEAR (CLEAR); BILIRUBIN,URINE NEGATIVE (NEGATIVE); BLOOD, URINE NEGATIVE Ery/uL (NEGATIVE); COLOR,URINE YELLOW (YELLOW); KETONES,URINE NEGATIVE (NEGATIVE); LEUKOCYTE ESTERASE ,URINE NEGATIVE (NEGATIVE); NITRITE, URINE NEGATIVE (NEGATIVE); PROTEIN,URINE TRACE mg/dl (NEGATIVE); UGLUCOSE NEGATIVE (NEGATIVE)
[2024-10-08 16:36] LABS: ADD URINE CULTURE NO; BACTERIA,URINE None seen /HPF (None Seen); HYALINE CASTS, URINE Few /LPF (None Seen); MUCUS,URINE Few /LPF (None Seen); RBC,URINE 0-2 /HPF (0-2); SQUAMOUS EPITHELIAL CELL,UR 0-2 /HPF (None Seen); WBC,URINE 0-2 /HPF (0-3)
[2024-10-08 16:43] LABS: AMPHETAMINE, URINE NEGATIVE (NEGATIVE); BARBITURATE, URINE NEGATIVE (NEGATIVE); BENZODIAZEPINE, URINE NEGATIVE (NEGATIVE); OPIATE, URINE NEGATIVE (NEGATIVE); PHENCYCLIDINE SCREEN,URINE NEGATIVE (NEGATIVE)
[2024-10-08 16:53] LABS: BASOPHILS # (AUTO) 0.1 K/uL (0.0-0.2); BASOPHILS % (AUTO) 0.8 % (0.0-2.0); EOSINOPHILS # (AUTO) 0.1 K/uL (0.0-0.7); EOSINOPHILS % (AUTO) 0.5 % (0.0-6.0); HEMATOCRIT 47 % (39-51); HEMOGLOBIN 15.9 g/dL (13.5-17.5); LYMPHOCYTES # (AUTO) 1.3 K/uL (0.8-4.8); LYMPHOCYTES % (AUTO) 12.2 % (20.0-44.0); MEAN CORPUSCULAR HEMOGLOBIN 31 PG (26.0-33.0); MEAN CORPUSCULAR HGB CONC 34 g/dl (31.0-36.0); MEAN CORPUSCULAR VOLUME 92 fL (80-96); MONOCYTES % (AUTO) 9.6 % (2.0-12.0); NEUTROPHILS # (AUTO) 8.2 K/uL (1.8-8.9); NEUTROPHILS % (AUTO) 76.9 % (43.0-81.0); PLATELET COUNT (AUTO) 269 K/uL (150-450); RED BLOOD CELL COUNT(AUTO) 5.14 MIL/uL (4.5-6.0); RED CELL DISTRIBUTION WIDTH 13.1 % (11.5-15.0); WHITE BLOOD COUNT (AUTO) 10.6 K/uL (4.3-11.0)
[2024-10-08 17:14] LABS: COCCAINE, URINE POSITIVE (NEGATIVE)
[2024-10-08 17:15] LABS: CANNABINOID, URINE POSITIVE (NEGATIVE)
[2024-10-08 17:15] LABS: ALANINE AMINOTRANSFERASE 22 U/L (12-78); ALBUMIN 4.5 g/dL (3.4-5.0); ALCOHOL, BLOOD < 3 mg/dL (0-10); ALKALINE PHOSPHATASE 185 U/L (46-116); ASPARTATE AMINOTRANSFERASE 14 U/L (15-37); CALCIUM, SERUM 9.7 mg/dL (8.5-10.1); CARBON DIOXIDE 32 mmol/L (21-32); CHLORIDE 104 mmol/L (98-107); CREATININE 1.5 mg/dL (0.6-1.3); GLUCOSE 108 mg/dL (74-106); POTASSIUM 4.3 mmol/L (3.5-5.1); SALICYLATE 0.6 mg/dL (2.8-20.0); SODIUM SERUM 142 mmol/L (136-145); TOTAL PROTEIN, SERUM 8.5 g/dL (6.4-8.2); UREA NITROGEN, BLOOD 27 mg/dL (7-18)
[2024-10-08 17:32] LABS: BILIRUBIN,DIRECT 0.1 mg/dL (0.0-0.2); BILIRUBIN,TOTAL 0.6 mg/dL (0.2-1.0)
[2024-10-08 18:18] LABS: ACETAMINOPHEN <10 ug/ml (10-30)
[2024-10-08 22:08] VITALS: BP 133/82; TEMP 98; O2SAT 99
== END 2024-10-09 00:17 ==
LOC: ER 15:25
DX: F31.9 Bipolar disorder, unspecified (principal); E78.5 Hyperlipidemia, unspecified; F12.90 Cannabis use, unspecified, uncomplicated; F17.200 Nicotine dependence, unspecified, uncomplicated; G89.29 Other chronic pain; I10 Essential (primary) hypertension; K21.9 Gastro-esophageal reflux disease without esophagitis; Z79.01 Long term (current) use of anticoagulants; Z79.899 Other long term (current) drug therapy; Z86.718 Personal history of other venous thrombosis and embolism; Z20.822 Contact with and (suspected) exposure to COVID-19
CPT/HCPCS: 36415; 80048-TC; 80076-TC; 81001; 85025-TC; G0480

== ENCOUNTER 2024-11-03 22:30 | Emergency (ER) | payer MEDICARE, OTHER ==
[~2024-11-03] VITALS: Ht 175.3 cm; Wt 102.1 kg
[2024-11-04] MEDS ORDERED: IBUPROFEN 400 MG TABLET ONE (03:21)
[2024-11-04] MEDS: IBUPROFEN 400 MG TABLET PO ONE (03:21)
[2024-11-04 03:25] VITALS: BP 136/85; TEMP 98.2; O2SAT 99
== END 2024-11-04 03:25 | disposition home or self-care (01) ==
LOC: ER 22:35
DX: S83.8X1A Sprain of other specified parts of right knee, initial encounter (principal); F17.200 Nicotine dependence, unspecified, uncomplicated; F12.90 Cannabis use, unspecified, uncomplicated; E78.5 Hyperlipidemia, unspecified; F31.9 Bipolar disorder, unspecified; I10 Essential (primary) hypertension; K21.9 Gastro-esophageal reflux disease without esophagitis; Z79.01 Long term (current) use of anticoagulants; Z79.899 Other long term (current) drug therapy; Z86.718 Personal history of other venous thrombosis and embolism; Z91.018 Allergy to other foods; W18.39XA Other fall on same level, initial encounter; Y93.89 Activity, other specified; Y92.89 Other specified places as the place of occurrence of the external cause; Y99.8 Other external cause status
CPT/HCPCS: 73564-TC

== ENCOUNTER 2024-11-04 22:02 | Emergency (ER) | payer MEDICARE, OTHER ==
[~2024-11-04] VITALS: Ht 172.7 cm; Wt 108.9 kg
[2024-11-04 23:25] LABS: BASOPHILS # (AUTO) 0.1 K/uL (0.0-0.2); BASOPHILS % (AUTO) 0.8 % (0.0-2.0); EOSINOPHILS # (AUTO) 0.3 K/uL (0.0-0.7); EOSINOPHILS % (AUTO) 4.2 % (0.0-6.0); HEMATOCRIT 42 % (39-51); HEMOGLOBIN 14.9 g/dL (13.5-17.5); LYMPHOCYTES % (AUTO) 29.1 % (20.0-44.0); MEAN CORPUSCULAR HEMOGLOBIN 32 PG (26.0-33.0); MEAN CORPUSCULAR HGB CONC 35 g/dl (31.0-36.0); MEAN CORPUSCULAR VOLUME 91 fL (80-96); MONOCYTES # (AUTO) 0.5 K/uL (0.1-1.30); MONOCYTES % (AUTO) 7.1 % (2.0-12.0); NEUTROPHILS # (AUTO) 4.1 K/uL (1.8-8.9); NEUTROPHILS % (AUTO) 58.8 % (43.0-81.0); PLATELET COUNT (AUTO) 275 K/uL (150-450); RED BLOOD CELL COUNT(AUTO) 4.64 MIL/uL (4.5-6.0); RED CELL DISTRIBUTION WIDTH 13.1 % (11.5-15.0); WHITE BLOOD COUNT (AUTO) 6.9 K/uL (4.3-11.0)
[2024-11-04 23:32] LABS: APPEARANCE,URINE CLEAR (CLEAR); BILIRUBIN,URINE NEGATIVE (NEGATIVE); BLOOD, URINE NEGATIVE Ery/uL (NEGATIVE); COLOR,URINE YELLOW (YELLOW); KETONES,URINE NEGATIVE (NEGATIVE); LEUKOCYTE ESTERASE ,URINE NEGATIVE (NEGATIVE); NITRITE, URINE NEGATIVE (NEGATIVE); PROTEIN,URINE NEGATIVE (NEGATIVE); UGLUCOSE NEGATIVE (NEGATIVE); UROBILINOGEN,URINE 0.2 EU/dL (0.2)
[2024-11-04 23:34] LABS: CALCIUM, SERUM 9.3 mg/dL (8.5-10.1); CARBON DIOXIDE 30 mmol/L (21-32); CHLORIDE 106 mmol/L (98-107); CREATININE 1.2 mg/dL (0.6-1.3); GLUCOSE 131 mg/dL (74-106); POTASSIUM 3.9 mmol/L (3.5-5.1); SODIUM SERUM 142 mmol/L (136-145); UREA NITROGEN, BLOOD 17 mg/dL (7-18)
[2024-11-04 23:39] LABS: ACETAMINOPHEN <10 ug/ml (10-30); ALANINE AMINOTRANSFERASE 32 U/L (12-78); ALBUMIN 4.1 g/dL (3.4-5.0); ALCOHOL, BLOOD < 3 mg/dL (0-10); ALKALINE PHOSPHATASE 166 U/L (46-116); ASPARTATE AMINOTRANSFERASE 14 U/L (15-37); BILIRUBIN,DIRECT 0.1 mg/dL (0.0-0.2); BILIRUBIN,TOTAL 0.3 mg/dL (0.2-1.0); SALICYLATE 0.5 mg/dL (2.8-20.0); TOTAL PROTEIN, SERUM 7.9 g/dL (6.4-8.2)
[2024-11-04 23:50] LABS: AMPHETAMINE, URINE NEGATIVE (NEGATIVE); BARBITURATE, URINE NEGATIVE (NEGATIVE); BENZODIAZEPINE, URINE NEGATIVE (NEGATIVE); CANNABINOID, URINE POSITIVE (NEGATIVE); COCCAINE, URINE POSITIVE (NEGATIVE); OPIATE, URINE NEGATIVE (NEGATIVE); PHENCYCLIDINE SCREEN,URINE NEGATIVE (NEGATIVE)
[2024-11-05 04:02] VITALS: BP 145/92; TEMP 98; O2SAT 98
== END 2024-11-05 02:45 | disposition home or self-care (01) ==
LOC: ER 22:05
DX: R45.851 Suicidal ideations (principal); F32.A Depression, unspecified; I10 Essential (primary) hypertension; F12.90 Cannabis use, unspecified, uncomplicated; E78.5 Hyperlipidemia, unspecified; F17.200 Nicotine dependence, unspecified, uncomplicated; G89.29 Other chronic pain; K21.9 Gastro-esophageal reflux disease without esophagitis; Z79.01 Long term (current) use of anticoagulants; Z79.899 Other long term (current) drug therapy; Z86.718 Personal history of other venous thrombosis and embolism; Z20.822 Contact with and (suspected) exposure to COVID-19
CPT/HCPCS: 36415; 80048-TC; 80076-TC; 85025-TC; G0480

== ENCOUNTER 2025-02-01 14:39 | Emergency (ER) | payer MEDICARE, OTHER ==
[~2025-02-01] VITALS: Ht 172.7 cm; Wt 111.1 kg
[2025-02-01 15:10] LABS: BASOPHILS # (AUTO) 0.1 K/uL (0.0-0.2); BASOPHILS % (AUTO) 0.8 % (0.0-2.0); EOSINOPHILS # (AUTO) 0.2 K/uL (0.0-0.7); EOSINOPHILS % (AUTO) 3.5 % (0.0-6.0); HEMATOCRIT 47 % (39-51); LYMPHOCYTES # (AUTO) 1.4 K/uL (0.8-4.8); LYMPHOCYTES % (AUTO) 20.4 % (20.0-44.0); MEAN CORPUSCULAR HEMOGLOBIN 31 PG (26.0-33.0); MEAN CORPUSCULAR HGB CONC 34 g/dl (31.0-36.0); MEAN CORPUSCULAR VOLUME 90 fL (80-96); MONOCYTES # (AUTO) 0.6 K/uL (0.1-1.30); MONOCYTES % (AUTO) 9.3 % (2.0-12.0); NEUTROPHILS # (AUTO) 4.6 K/uL (1.8-8.9); PLATELET COUNT (AUTO) 260 K/uL (150-450); RED BLOOD CELL COUNT(AUTO) 5.19 MIL/uL (4.5-6.0); RED CELL DISTRIBUTION WIDTH 13.2 % (11.5-15.0); WHITE BLOOD COUNT (AUTO) 6.9 K/uL (4.3-11.0)
[2025-02-01 15:26] LABS: CALCIUM, SERUM 9.7 mg/dL (8.5-10.1); CARBON DIOXIDE 31 mmol/L (21-32); CHLORIDE 107 mmol/L (98-107); GLUCOSE 106 mg/dL (74-106); POTASSIUM 4.1 mmol/L (3.5-5.1); SODIUM SERUM 144 mmol/L (136-145); UREA NITROGEN, BLOOD 15 mg/dL (7-18)
[2025-02-01 15:32] LABS: ALANINE AMINOTRANSFERASE 28 U/L (12-78); ALKALINE PHOSPHATASE 133 U/L (46-116); ASPARTATE AMINOTRANSFERASE 18 U/L (15-37); BILIRUBIN,DIRECT 0.1 mg/dL (0.0-0.2); BILIRUBIN,TOTAL 0.5 mg/dL (0.2-1.0); TOTAL PROTEIN, SERUM 7.5 g/dL (6.4-8.2)
[2025-02-01 15:33] LABS: ACETAMINOPHEN <10 ug/ml (10-30); ALCOHOL, BLOOD < 3 mg/dL (0-10); SALICYLATE 1.4 mg/dL (2.8-20.0)
[2025-02-01 16:53] LABS: AMPHETAMINE, URINE NEGATIVE (NEGATIVE); BARBITURATE, URINE NEGATIVE (NEGATIVE); BENZODIAZEPINE, URINE NEGATIVE (NEGATIVE); OPIATE, URINE NEGATIVE (NEGATIVE); PHENCYCLIDINE SCREEN,URINE NEGATIVE (NEGATIVE)
[2025-02-01 17:14] LABS: CANNABINOID, URINE POSITIVE (NEGATIVE); COCCAINE, URINE POSITIVE (NEGATIVE)
[2025-02-01 17:37] LABS: APPEARANCE,URINE CLEAR (CLEAR); BILIRUBIN,URINE NEGATIVE (NEGATIVE); BLOOD, URINE NEGATIVE Ery/uL (NEGATIVE); COLOR,URINE YELLOW (YELLOW); KETONES,URINE NEGATIVE (NEGATIVE); LEUKOCYTE ESTERASE ,URINE NEGATIVE (NEGATIVE); NITRITE, URINE NEGATIVE (NEGATIVE); PROTEIN,URINE NEGATIVE (NEGATIVE); UGLUCOSE NEGATIVE (NEGATIVE)
[2025-02-01 18:00] VITALS: BP 142/95; TEMP 98.6; O2SAT 98
[2025-02-01 19:21] LABS: ADD URINE CULTURE NO; BACTERIA,URINE Rare /HPF (None Seen); MUCUS,URINE Few /LPF (None Seen); RBC,URINE 0-2 /HPF (0-2); SQUAMOUS EPITHELIAL CELL,UR None Seen /HPF (None Seen); WBC,URINE 0-2 /HPF (0-3)
== END 2025-02-01 18:53 ==
LOC: ER 15:23
DX: R45.851 Suicidal ideations (principal); I10 Essential (primary) hypertension; E78.5 Hyperlipidemia, unspecified; F12.90 Cannabis use, unspecified, uncomplicated; F17.200 Nicotine dependence, unspecified, uncomplicated; F19.10 Other psychoactive substance abuse, uncomplicated; G89.29 Other chronic pain; Z79.01 Long term (current) use of anticoagulants; Z79.899 Other long term (current) drug therapy; Z86.718 Personal history of other venous thrombosis and embolism; Z20.822 Contact with and (suspected) exposure to COVID-19
CPT/HCPCS: 36415; 80048-TC; 80076-TC; 81001; 85025-TC; G0480

== ENCOUNTER 2025-04-30 22:13 | Emergency (ER) | payer MEDICARE, OTHER ==
[~2025-04-30] VITALS: Ht 170.2 cm; Wt 111.1 kg
[2025-04-30 23:15] LABS: PLATELET COUNT (AUTO) 230 K/uL (150-450); RED BLOOD CELL COUNT(AUTO) 5.25 MIL/uL (4.5-6.0); RED CELL DISTRIBUTION WIDTH 13.5 % (11.5-15.0); WHITE BLOOD COUNT (AUTO) 6.5 K/uL (4.3-11.0)
[2025-04-30 23:21] LABS: APPEARANCE,URINE CLEAR (CLEAR); BLOOD, URINE NEGATIVE Ery/uL (NEGATIVE); LEUKOCYTE ESTERASE ,URINE NEGATIVE (NEGATIVE); NITRITE, URINE NEGATIVE (NEGATIVE); UGLUCOSE NEGATIVE (NEGATIVE)
[2025-04-30 23:27] LABS: AMPHETAMINE, URINE NEGATIVE (NEGATIVE); BARBITURATE, URINE NEGATIVE (NEGATIVE); BENZODIAZEPINE, URINE NEGATIVE (NEGATIVE); CANNABINOID, URINE NEGATIVE (NEGATIVE); OPIATE, URINE NEGATIVE (NEGATIVE)
[2025-04-30] MEDS ORDERED: CLONIDINE HCL 0.1 MG TABLET ONE (23:27)
[2025-04-30] MEDS ORDERED: BENAZEPRIL HCL 10 MG TABLET ONE (23:27)
[2025-04-30] MEDS ORDERED: IBUPROFEN 600 MG TABLET ONE (23:27)
[2025-04-30] MEDS: BENAZEPRIL HCL 10 MG TABLET PO ONE (23:30)
[2025-04-30] MEDS: IBUPROFEN 600 MG TABLET PO ONE (23:30)
[2025-04-30] MEDS: CLONIDINE HCL 0.1 MG TABLET PO ONE (23:30)
[2025-04-30 23:31] LABS: ASPARTATE AMINOTRANSFERASE 12 U/L (15-37); CALCIUM, SERUM 9.3 mg/dL (8.5-10.1); CREATININE 0.9 mg/dL (0.6-1.3); SODIUM SERUM 142 mmol/L (136-145); TOTAL PROTEIN, SERUM 7.4 g/dL (6.4-8.2); UREA NITROGEN, BLOOD 11 mg/dL (7-18)
[2025-04-30 23:43] LABS: ALCOHOL, BLOOD < 3 mg/dL (0-10); COCCAINE, URINE POSITIVE (NEGATIVE)
[2025-05-01] MEDS ORDERED: POTASSIUM CHLORIDE 20 MEQ TAB.PRT.SR PO ONE (00:18)
[2025-05-01] MEDS: POTASSIUM CHLORIDE 20 MEQ TAB.PRT.SR PO ONE (00:18)
[2025-05-01 01:10] VITALS: BP 143/96; TEMP 98.2; O2SAT 95
== END 2025-05-01 01:11 ==
LOC: ER 22:13
DX: F32.A Depression, unspecified (principal); R45.851 Suicidal ideations; R21 Rash and other nonspecific skin eruption; E78.5 Hyperlipidemia, unspecified; F12.90 Cannabis use, unspecified, uncomplicated; F14.10 Cocaine abuse, uncomplicated; F17.210 Nicotine dependence, cigarettes, uncomplicated; G89.29 Other chronic pain; I10 Essential (primary) hypertension; K21.9 Gastro-esophageal reflux disease without esophagitis; Z59.00 Homelessness unspecified; Z79.01 Long term (current) use of anticoagulants; Z79.899 Other long term (current) drug therapy; Z86.718 Personal history of other venous thrombosis and embolism; Z91.018 Allergy to other foods; Z20.822 Contact with and (suspected) exposure to COVID-19
CPT/HCPCS: 99285; 93005; 99406; 85025; 80048; 80076; 81003; 36415; 84443; 87426; 80143; 80320; 80307; Q0163; G0480

== ENCOUNTER 2025-05-29 11:40 | Emergency (ER) | payer MEDICARE, OTHER ==
[~2025-05-29] VITALS: Ht 172.7 cm; Wt 108.9 kg
[2025-05-29 11:54] VITALS: TEMP 98.3
[2025-05-29 12:15] LABS: PLATELET COUNT (AUTO) 231 K/uL (150-450); RED BLOOD CELL COUNT(AUTO) 5.27 MIL/uL (4.5-6.0); RED CELL DISTRIBUTION WIDTH 13.4 % (11.5-15.0); WHITE BLOOD COUNT (AUTO) 6.5 K/uL (4.3-11.0)
[2025-05-29 12:17] LABS: APPEARANCE,URINE CLEAR (CLEAR); BLOOD, URINE Negative Ery/uL (NEGATIVE); LEUKOCYTE ESTERASE ,URINE Negative (NEGATIVE); UGLUCOSE Negative (NEGATIVE)
[2025-05-29 12:20] VITALS: BP 148/84; O2SAT 99
[2025-05-29 12:21] LABS: NITRITE, URINE NEGATIVE (NEGATIVE)
[2025-05-29 12:24] LABS: CALCIUM, SERUM 9.5 mg/dL (8.5-10.1); CREATININE 1.0 mg/dL (0.6-1.3); SODIUM SERUM 137 mmol/L (136-145); UREA NITROGEN, BLOOD 12 mg/dL (7-18)
[2025-05-29 12:34] LABS: ALCOHOL, BLOOD < 3 mg/dL (0-10); ASPARTATE AMINOTRANSFERASE 15 U/L (15-37); TOTAL PROTEIN, SERUM 7.4 g/dL (6.4-8.2)
[2025-05-29 12:37] LABS: AMPHETAMINE, URINE NEGATIVE (NEGATIVE); BARBITURATE, URINE NEGATIVE (NEGATIVE); BENZODIAZEPINE, URINE NEGATIVE (NEGATIVE); CANNABINOID, URINE NEGATIVE (NEGATIVE); COCCAINE, URINE POSITIVE (NEGATIVE); OPIATE, URINE NEGATIVE (NEGATIVE)
[2025-05-29] MEDS ORDERED: IBUPROFEN 600 MG TABLET ONE (12:48)
[2025-05-29] MEDS: IBUPROFEN 600 MG TABLET PO ONE (12:50)
== END 2025-05-29 14:54 ==
LOC: ER 11:56
DX: R45.851 Suicidal ideations (principal); I10 Essential (primary) hypertension; G89.29 Other chronic pain; F31.9 Bipolar disorder, unspecified; F17.200 Nicotine dependence, unspecified, uncomplicated; M25.569 Pain in unspecified knee; F12.90 Cannabis use, unspecified, uncomplicated; E78.5 Hyperlipidemia, unspecified; Z79.01 Long term (current) use of anticoagulants; Z79.899 Other long term (current) drug therapy; Z86.718 Personal history of other venous thrombosis and embolism; Z20.822 Contact with and (suspected) exposure to COVID-19
CPT/HCPCS: 36415; 80048-TC; 80076-TC; 85025-TC; G0480

== ENCOUNTER 2025-07-04 13:57 | Emergency (ER) | payer MEDICARE, OTHER ==
[~2025-07-04] VITALS: Ht 172.7 cm; Wt 108.9 kg
[2025-07-04 14:13] VITALS: BP 141/81; TEMP 98.3; O2SAT 97
[2025-07-04 14:34] LABS: PLATELET COUNT (AUTO) 203 K/uL (150-450); RED BLOOD CELL COUNT(AUTO) 5.01 MIL/uL (4.5-6.0); RED CELL DISTRIBUTION WIDTH 13.3 % (11.5-15.0); WHITE BLOOD COUNT (AUTO) 5.4 K/uL (4.3-11.0)
[2025-07-04 14:36] LABS: APPEARANCE,URINE CLEAR (CLEAR); BLOOD, URINE Negative Ery/uL (NEGATIVE); LEUKOCYTE ESTERASE ,URINE Negative (NEGATIVE); UGLUCOSE Negative (NEGATIVE)
[2025-07-04 14:43] LABS: NITRITE, URINE NEGATIVE (NEGATIVE)
[2025-07-04 14:45] LABS: ADD URINE CULTURE YES; SQUAMOUS EPITHELIAL CELL,UR 0-2 /HPF (None Seen)
[2025-07-04 14:45] LABS: CALCIUM, SERUM 9.2 mg/dL (8.5-10.1); CREATININE 0.8 mg/dL (0.6-1.3); SODIUM SERUM 139 mmol/L (136-145); UREA NITROGEN, BLOOD 13 mg/dL (7-18)
[2025-07-04 14:56] LABS: ASPARTATE AMINOTRANSFERASE 15 U/L (15-37); TOTAL PROTEIN, SERUM 7.1 g/dL (6.4-8.2)
[2025-07-04 14:57] LABS: AMPHETAMINE, URINE NEGATIVE (NEGATIVE); BARBITURATE, URINE NEGATIVE (NEGATIVE); BENZODIAZEPINE, URINE NEGATIVE (NEGATIVE); OPIATE, URINE NEGATIVE (NEGATIVE)
[2025-07-04 15:01] LABS: CANNABINOID, URINE POSITIVE (NEGATIVE); COCCAINE, URINE POSITIVE (NEGATIVE)
[2025-07-04 15:49] LABS: ALCOHOL, BLOOD < 3 mg/dL (0-10)
[2025-07-04] MEDS ORDERED: IBUPROFEN 600 MG TABLET ONE (16:28)
[2025-07-04] MEDS: IBUPROFEN 600 MG TABLET PO ONE (16:29)
[2025-07-04] MEDS ORDERED: POTASSIUM CHLORIDE 20 MEQ TAB.PRT.SR PO ONE (18:37)
[2025-07-04] MEDS: POTASSIUM CHLORIDE 20 MEQ TAB.PRT.SR PO ONE (18:38)
== END 2025-07-04 20:36 ==
LOC: ER 13:59
DX: R45.851 Suicidal ideations (principal); E78.5 Hyperlipidemia, unspecified; F12.90 Cannabis use, unspecified, uncomplicated; F17.200 Nicotine dependence, unspecified, uncomplicated; F20.9 Schizophrenia, unspecified; F31.9 Bipolar disorder, unspecified; K21.9 Gastro-esophageal reflux disease without esophagitis; I10 Essential (primary) hypertension; Z79.01 Long term (current) use of anticoagulants; Z79.899 Other long term (current) drug therapy; Z86.718 Personal history of other venous thrombosis and embolism; Z91.018 Allergy to other foods; Z20.822 Contact with and (suspected) exposure to COVID-19; Z59.00 Homelessness unspecified
CPT/HCPCS: 36415; 80048-TC; 80076-TC; 81001; 85025-TC; 87086-TC; G0480

== ENCOUNTER 2025-08-08 12:34 | Emergency (ER) | payer MEDICARE, OTHER ==
[~2025-08-08] VITALS: Ht 172.7 cm; Wt 108.9 kg
[2025-08-08 13:14] LABS: PLATELET COUNT (AUTO) 219 K/uL (150-450); RED BLOOD CELL COUNT(AUTO) 5.01 MIL/uL (4.5-6.0); RED CELL DISTRIBUTION WIDTH 13.4 % (11.5-15.0); WHITE BLOOD COUNT (AUTO) 6.2 K/uL (4.3-11.0)
[2025-08-08 13:22] LABS: APPEARANCE,URINE CLEAR (CLEAR); BLOOD, URINE Trace-intact Ery/uL (NEGATIVE); LEUKOCYTE ESTERASE ,URINE Negative (NEGATIVE); NITRITE, URINE NEGATIVE (NEGATIVE); UGLUCOSE Negative (NEGATIVE)
[2025-08-08 13:29] LABS: CALCIUM, SERUM 8.7 mg/dL (8.5-10.1); CREATININE 0.9 mg/dL (0.6-1.3); SODIUM SERUM 136 mmol/L (136-145); UREA NITROGEN, BLOOD 17 mg/dL (7-18)
[2025-08-08 13:31] LABS: ASPARTATE AMINOTRANSFERASE 16 U/L (15-37); TOTAL PROTEIN, SERUM 7.3 g/dL (6.4-8.2)
[2025-08-08] MEDS ORDERED: IBUPROFEN 400 MG TABLET ONE (13:33)
[2025-08-08 13:35] LABS: ADD URINE CULTURE NO; SQUAMOUS EPITHELIAL CELL,UR 0-2 /HPF (None Seen)
[2025-08-08] MEDS: IBUPROFEN 400 MG TABLET PO ONE (13:39)
[2025-08-08 13:43] LABS: AMPHETAMINE, URINE NEGATIVE (NEGATIVE); BARBITURATE, URINE NEGATIVE (NEGATIVE); BENZODIAZEPINE, URINE NEGATIVE (NEGATIVE); OPIATE, URINE NEGATIVE (NEGATIVE)
[2025-08-08 13:45] LABS: CANNABINOID, URINE POSITIVE (NEGATIVE); COCCAINE, URINE POSITIVE (NEGATIVE)
[2025-08-08 17:00] VITALS: TEMP 98
[2025-08-08 18:35] VITALS: BP 141/99; O2SAT 98
== END 2025-08-08 18:46 ==
LOC: ER 12:38
DX: F20.9 Schizophrenia, unspecified (principal); F17.200 Nicotine dependence, unspecified, uncomplicated; F31.9 Bipolar disorder, unspecified; G89.29 Other chronic pain; I11.9 Hypertensive heart disease without heart failure; M19.90 Unspecified osteoarthritis, unspecified site; F12.90 Cannabis use, unspecified, uncomplicated; E78.5 Hyperlipidemia, unspecified; Z02.89 Encounter for other administrative examinations; Z79.01 Long term (current) use of anticoagulants; Z79.899 Other long term (current) drug therapy; Z86.718 Personal history of other venous thrombosis and embolism; Z91.018 Allergy to other foods
CPT/HCPCS: 36415; 80048-TC; 80076-TC; 81001; 85025-TC

== ENCOUNTER 2025-10-09 15:57 | Emergency (ER) | payer MEDICARE, OTHER ==
[~2025-10-09] VITALS: Ht 172.7 cm; Wt 108.9 kg
[2025-10-09 15:58] VITALS: TEMP 98.4
[2025-10-09] MEDS ORDERED: IBUP-1490 PO (18:26)
[2025-10-09] MEDS ORDERED: ACET-2605 PO (18:26)
[2025-10-09] MEDS ORDERED: METH-647 PO (18:26)
[2025-10-09] MEDS ORDERED: METHOCARBAMOL (500MG) 500 MG TABLET ONE (19:20)
[2025-10-09] MEDS ORDERED: ACETAMINOPHEN ES 500 MG TABLET ONE (19:20)
[2025-10-09] MEDS: METHOCARBAMOL (500MG) 500 MG TABLET PO ONE (19:23)
[2025-10-09] MEDS: ACETAMINOPHEN ES 500 MG TABLET PO ONE (19:23)
[2025-10-09 21:10] VITALS: BP 119/84; O2SAT 96
== END 2025-10-09 21:11 | disposition home or self-care (01) ==
LOC: ER 16:36
DX: M25.571 Pain in right ankle and joints of right foot (principal); D35.00 Benign neoplasm of unspecified adrenal gland; I11.9 Hypertensive heart disease without heart failure; E78.5 Hyperlipidemia, unspecified; G89.29 Other chronic pain; F31.9 Bipolar disorder, unspecified; F12.90 Cannabis use, unspecified, uncomplicated; F17.200 Nicotine dependence, unspecified, uncomplicated; Z79.01 Long term (current) use of anticoagulants; Z79.899 Other long term (current) drug therapy; Z91.018 Allergy to other foods; V18.4XXA Pedal cycle driver injured in noncollision transport accident in traffic accident, initial encounter; Y93.55 Activity, bike riding; Y92.89 Other specified places as the place of occurrence of the external cause; Y99.8 Other external cause status
CPT/HCPCS: 71250-TC; 73564-TC; 73590-TC; 73610-TC